=== PATIENT | female | born 1945 | race Caucasian/White ===

== ENCOUNTER 2021-04-17 04:58 | Inpatient (IN) ==
[2021-04-13 19:08] LABS: Blood Urea Nitrogen 11 mg/dL (8-23); Calcium 9.8 mg/dL (8.6-10.4); Carbon Dioxide 27 mmol/L (22-30); Chloride 100 mmol/L (96-108); Glomerular Filtration Rate 87; Glucose 113 mg/dL (70-105)
[2021-04-13 19:34] LABS: Basophils # (Auto) 0.01 K/mcL (0.00-0.20); Basophils % (Auto) 0.2 % (0.0-2.0); Eosinophils # (Auto) 0.17 K/mcL (0.00-0.70); Hematocrit 27.4 % (36.0-48.0); Hemoglobin 7.4 g/dL (12.0-15.0); Lymphocytes # (Auto) 1.23 K/mcL (1.50-4.80); Lymphocytes % (Auto) 21.7 % (15.0-49.0); Mean Cell Volume 64.2 fL (80.0-100.0); Mean Platelet Volume 9.8 fL (7.4-10.4); Monocytes # (Auto) 0.76 K/mcL (0.10-0.90); Monocytes % (Auto) 13.4 % (1.0-12.0); Neutrophils % (Auto) 61.7 % (38.0-78.0); Platelet Count 394 K/mcL (140-440); RBC 4.27 M/mcL (4.00-5.20); Red Cell Distribution Width 19.5 % (11.5-14.5); WBC 5.7 K/mcL (4.5-11.0)
[2021-04-17] MEDS ORDERED: SCOPOLAMINE 1 PATCH PATCH TOPICAL PRN (05:00)
[2021-04-17] MEDS ORDERED: IPRATROPIUM/ALBUTEROL 3 ML AMPUL.NEB NEB PRN ×2 (05:00→09:05)
[2021-04-17] MEDS ORDERED: ceFAZolin 2 GM in DEXTROSE 5% IN WATER 50 ML IV SCH (07:00)
[2021-04-17] MEDS ORDERED: 0.9 % SODIUM CHLORIDE 250 ML IV SCH (07:45)
[2021-04-17] MEDS ORDERED: ROCURONIUM 10 MG/ML ML IV ONE (07:55)
[2021-04-17] MEDS ORDERED: LIDOCAINE HCL/PF 100 MG/5 ML SYRINGE IV ONE (07:55)
[2021-04-17] MEDS ORDERED: DEXAMETHASONE 10 MG/ML VIAL ONE (07:55)
[2021-04-17] MEDS ORDERED: HYDROmorphone 1 MG/ML SYRINGE ONE (07:55)
[2021-04-17] MEDS ORDERED: MAGNESIUM SULFATE 2 GM/50 ML BAG IV ONE (07:55)
[2021-04-17] MEDS ORDERED: fentaNYL 100 MCG/2 ML VIAL IV ONE (07:55)
[2021-04-17] MEDS ORDERED: ONDANSETRON 4 MG/2 ML VIAL ONE (07:55)
[2021-04-17] MEDS ORDERED: PROPOFOL 200 MG/20 ML VIAL IV ONE (07:55)
[2021-04-17] MEDS ORDERED: KETAMINE 50 MG/ML ML ONE (07:55)
[2021-04-17] MEDS ORDERED: SUGAMMADEX SODIUM 200 MG/2 ML VIAL IV ONE (07:55)
[2021-04-17] MEDS ORDERED: diphenhydrAMINE 50 MG/ML VIAL IV PRN (09:05)
[2021-04-17] MEDS ORDERED: NALOXONE HCL 0.4 MG/ML VIAL IV PRN (09:05)
[2021-04-17] MEDS ORDERED: BENZOCAINE/MENTHOL 1 LOZENGE PO PRN (09:05)
[2021-04-17] MEDS ORDERED: LACTATED RINGERS 250 ML IV PRN (09:05)
[2021-04-17] MEDS ORDERED: ONDANSETRON 4 MG/2 ML VIAL IV PRN (09:05)
[2021-04-17] MEDS ORDERED: ACETAMINOPHEN 1,000 MG/100 ML BAG IV ONE (09:05)
[2021-04-17] MEDS ORDERED: MEPERIDINE 25 MG/ML VIAL IV PRN (09:05)
[2021-04-17] MEDS ORDERED: PROMETHAZINE 25 MG/ML VIAL IV PRN (09:05)
[2021-04-17] MEDS ORDERED: LACTATED RINGERS 1,000 ML IV SCH (09:15)
[2021-04-17] MEDS ORDERED: morphine 4 MG/ML VIAL IV PRN (09:33)
--- NOTE | 2021-04-17 09:33 | Operative Note ---
Brief Operative Note Date of procedure: 04/17/21 Pre-op diagnosis: Cecal adenocarcinoma Post-op diagnosis: same Procedure: Exploratory laparotomy, right hemicolectomy, explantation of ventral abdominal wall mesh, extensive lysis of adhesions Grafts/Implants: No Anesthesia: GETA Complications: none Surgeon: Alexander Melendrez Estimated blood loss (cc): 50 Specimens Removed/Pathology: other (Portion of terminal ileum and cecum, right colon.Dated mesh) Condition: stable Disposition: PACU Operative Note Operative Note: After risk benefits and alternatives to the procedure were discussed with the patient at length she verbalized understanding and desire to continue with the procedure. Patient was taken main operating room placed upon the operative table. General anesthesia was induced over endotracheal tube. Patient's prepped and draped in the standard sterile surgical fashion. Surgical timeout was taken to verify patient and procedure being performed. Prior midline incision was made carried down through skin and subtenons tissue. Mesh was encountered this was transected and the abdominal cavity was entered. Extensive lysis of adhesions was necessary secondary to dense adhesions to the m esh. Once full lysis of adhesions was carried out attention was turned to the right colon where the colonic mass was identified. The white line of Toldt was taken down to medialize the colon the hepatic flexure was also taken down, there was a large amount of omental adhesions to the hepatic flexure these were taken down to fully mobilize the right side of the colon. Once this was done the colo n was transected approximately 10 cm proximal to the mass and the small bowel was transected 10 cm distal to the terminal ileum. The mesentery was taken down with the LigaSure device and the specimen was passed off the field for surgical pathology. A end-to-end functional [id number] stapled anastomosis was then performed in between the small bowel and the transverse colon. The enterotomy was closed with a running 3-0 PDS suture in a standard canal fashion. The mesentery defect was closed with interrupted 3-0 Vicryl sutures. Once this was done the anastomosis was widely patent and was returned to its anatomical position. At this time gloves and instruments were changed to a closing tray. Full abdominal expiration was once again carried out, there was no obvious liver metastasis or other pathology in the abdomen. Secondary to the bowel anastomosis decision was made to remove the previously placed mesh, it was carefully dissected free from the posterior fascia using sharp, electrocautery and a blunt dissection. Once it was fully removed is passed off field for surgical pathology. Attention was turned back to the abdomen abdominal cavity which was copiously irrigated and all irrigant was suctioned free from the abdominal cavity. Midline fascial defect was then closed using running 0 PDS suture. Subcutaneous tissues were closed with a running 4 Monocryl suture skin glue dressings were applied. Patient was then awakened from general anesthesia transported postanesthesia care unit awake alert in good condition.
[2021-04-17] MEDS: fentaNYL 100 MCG/2 ML VIAL IV PRN ×2 (10:16→10:28)
[2021-04-17] MEDS: LACTATED RINGERS 1,000 ML IV SCH ×2 (10:53→21:35)
[2021-04-17] MEDS: oxyCODONE HCL 5 MG TABLET PO PRN (19:06)
[2021-04-17] MEDS ORDERED: SENNOSIDES 1 TABLET PO SCH (21:00)
[2021-04-17] MEDS: DOCUSATE SODIUM 100 MG CAPSULE PO SCH (21:33)
[2021-04-18] MEDS: oxyCODONE HCL 5 MG TABLET PO PRN ×3 (04:32→16:19)
[2021-04-18 07:55] LABS: Basophils # (Auto) 0.01 K/mcL (0.00-0.20); Basophils % (Auto) 0.1 % (0.0-2.0); Eosinophils # (Auto) 0 K/mcL (0.00-0.70); Eosinophils % (Auto) 0 % (0.0-7.0); Hematocrit 22.8 % (36.0-48.0); Hemoglobin 6.2 g/dL (12.0-15.0); Lymphocytes # (Auto) 0.71 K/mcL (1.50-4.80); Lymphocytes % (Auto) 6.5 % (15.0-49.0); Mean Cell Volume 63.5 fL (80.0-100.0); Mean Corpuscular HGB Conc 27.2 g/dL (31.0-36.0); Mean Platelet Volume 10.2 fL (7.4-10.4); Monocytes # (Auto) 0.93 K/mcL (0.10-0.90); Monocytes % (Auto) 8.5 % (1.0-12.0); Neutrophils % (Auto) 84.9 % (38.0-78.0); Platelet Count 363 K/mcL (140-440); RBC 3.59 M/mcL (4.00-5.20); Red Cell Distribution Width 19.3 % (11.5-14.5)
[2021-04-18] MEDS: LACTATED RINGERS 1,000 ML IV SCH ×2 (08:01→22:27)
[2021-04-18 08:17] LABS: Blood Urea Nitrogen 8 mg/dL (8-23); Calcium 9.2 mg/dL (8.6-10.4); Carbon Dioxide 27 mmol/L (22-30); Chloride 100 mmol/L (96-108); Glomerular Filtration Rate 93; Glucose 135 mg/dL (70-105)
[2021-04-18] MEDS: ENOXAPARIN 30 MG/0.3 ML SYRINGE SQ SCH (08:25)
[2021-04-18] MEDS: DOCUSATE SODIUM 100 MG CAPSULE PO SCH ×2 (08:25→20:51)
--- NOTE | 2021-04-18 08:49 | General Surgery Progress Note ---
SUBJECTIVE Subjective Patient information: Note initiated : 04/18/21 at 8:47 am Service Date, if different from initiated Date: [] Patient: Annie Gomez 75 y/o F admitted on 04/17/21 for Right Hemicolectomy. Chief Complaint: [] Interval history: Postop day #1 status post open right hemicolectomy with extensive lysis of adhesions. Patient reports she feels well today, is tolerating clear liquid diet without difficulty, has had multiple episodes of flatus without nausea or emesis. Constitutional Vitals: Vital Signs Temp Pulse Resp BP Pulse Ox 97.3 F 84 20 142/74 96 04/18/21 07:21 04/18/21 07:21 04/18/21 07:21 04/18/21 07:21 04/18/21 07:21 Period Temp Pulse Resp BP Sys/Cuveas Pulse Ox Last 24 Hr 97.1 F-98.6 F 69-91 12-24 114-154/53-84 90-99 Intake and Output 04/17/21 04/18/21 04/18/21 21:59 05:59 13:59 Intake Total 1360 0 1000 Output Total 450 1700 Balance 910 -1700 1000 Weight 204 lb 14.4 oz Intake & Output: Intake & Output 04/17/21 04/18/21 04/18/21 21:59 05:59 13:59 Intake Total 1360 0 1000 Output Total 450 1700 Balance 910 -1700 1000 Weight 204 lb 14.4 oz Intake: IV 1000 1000 Lactated Ringers 1,000 ml @ 100 1000 1000 mls/hr IV .Q10H [facility] Rx#: [id number] Oral 360 0 Output: Urine Catheter Amount 450 1700 Other: Meal Lunch Percent of Meal Consumed 50% Feeding Ability Assist with Tray Set Up Urine Appearance Clear Uretheral (Blandon) Clear Urine Color Straw Bright Yellow Uretheral (Blandon) Bright Yellow Urine Odor Normal General appearance: cooperative and no acute distress GI/Abdominal GI/Abdominal exam: Present normal bowel sounds and soft; Absent distended Additional comments: Appropriately tender to palpation. Incision is clean dry and intact A/P Narrative A/P Narrative: Postop day #1 status post right hemicolectomy. Patient is doing as expected, she is ambulatory and tolerating clear diet. Plan: 1 unit of blood, recheck H&H tomorrow. Continue ambulation as tolerated, will advance diet as tolerated. Time Spent With Patient Time: Total time spent is greater than 50% in coordination of care (as documented) at patient's floor/unit and/or counseling patient:
[2021-04-18] MEDS ORDERED: ALBUTEROL SULFATE 200 PUFF INHALER INH PRN (08:51)
[2021-04-18] MEDS ORDERED: ACETAMINOPHEN 325 MG TABLET PO PRN (08:52)
[2021-04-18] MEDS ORDERED: oxyCODONE HCL 5 MG TABLET PO PRN (08:52)
[2021-04-18] MEDS ORDERED: LOSARTAN/HCTZ 100/25 TABLET PO SCH (09:00)
[2021-04-18] MEDS ORDERED: 0.9 % SODIUM CHLORIDE 250 ML IV SCH (09:00)
[2021-04-18] MEDS: HYDROCHLOROTHIAZIDE 25 MG TABLET PO SCH (09:49)
[2021-04-18] MEDS: busPIRone 5 MG TABLET PO SCH ×2 (09:49→20:51)
[2021-04-18] MEDS: LOSARTAN 50 MG TABLET PO SCH (09:49)
[2021-04-18] MEDS: SERTRALINE 50 MG TABLET PO SCH ×2 (09:49→20:50)
[2021-04-18] MEDS: ONDANSETRON 4 MG/2 ML VIAL IV PRN ×2 (17:16→23:24)
--- NOTE | 2021-04-18 18:26 | EKG ---
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 Measurements Intervals [place] Rate: 104 P: 45 MS: 168 QRS: 12 QRSD: 80 T: 16 QT: 352 QTc: 463 Interpretive Statements I reviewed and agree with the above findings. SINUS TACHYCARDIA ATRIAL PREMATURE COMPLEX no prior tracing for comparison Electronically Signed On 04-19-2021 19:02:48 PDT by Meet Barnes M.D. /[id number]
[2021-04-18] MEDS: SOTALOL 80 MG TABLET PO SCH (20:47)
[2021-04-19] MEDS: LACTATED RINGERS 1,000 ML IV SCH ×3 (01:48→12:13)
[2021-04-19] MEDS: 0.9 % SODIUM CHLORIDE 10 ML SYRINGE IV SCH ×3 (05:21→22:46)
[2021-04-19 07:48] LABS: Basophils # (Auto) 0.01 K/mcL (0.00-0.20); Basophils % (Auto) 0.1 % (0.0-2.0); Eosinophils # (Auto) 0.02 K/mcL (0.00-0.70); Eosinophils % (Auto) 0.2 % (0.0-7.0); Hemoglobin 7.7 g/dL (12.0-15.0); Lymphocytes # (Auto) 0.81 K/mcL (1.50-4.80); Lymphocytes % (Auto) 7.5 % (15.0-49.0); Mean Corpuscular HGB Conc 28.5 g/dL (31.0-36.0); Mean Platelet Volume 10.1 fL (7.4-10.4); Monocytes # (Auto) 0.99 K/mcL (0.10-0.90); Monocytes % (Auto) 9.1 % (1.0-12.0); Neutrophils % (Auto) 83.1 % (38.0-78.0); Platelet Count 337 K/mcL (140-440); RBC 4.03 M/mcL (4.00-5.20); Red Cell Distribution Width 21.8 % (11.5-14.5); WBC 10.8 K/mcL (4.5-11.0)
--- NOTE | 2021-04-19 08:29 | General Surgery Progress Note ---
SUBJECTIVE Subjective Patient information: Note initiated : 04/19/21 at 8:27 am Service Date, if different from initiated Date: [] Patient: Annie Gomez 75 y/o F admitted on 04/17/21 for Right Hemicolectomy. Chief Complaint: [] Interval history: Postop day #2 status post exploratory laparotomy, extensive lysis of adhesions, right hemicolectomy for cecal cancer. Patient is feeling more tired today than what she did yesterday morning, has some nausea and emesis overnight however feels better this morning. She continues to pass flatus, she has not had a bowel movement at this time. Constitutional Vitals: Vital Signs Temp Pulse Resp BP Pulse Ox 98.2 F 68 20 153/82 98 04/19/21 07:29 04/19/21 07:29 04/19/21 07:29 04/19/21 07:29 04/19/21 07:29 Period Temp Pulse Resp BP Sys/Cuevas Pulse Ox Last 24 Hr 97.9 F-98.7 F 68-104 20-24 144-187/66-86 90-98 Intake and Output 04/18/21 04/19/21 04/19/21 21:59 05:59 13:59 Intake Total 650 727 Output Total 1775 1425 Balance -1125 -698 Weight 206 lb 1.6 oz Intake & Output: Intake & Output 04/18/21 04/19/21 04/19/21 21:59 05:59 13:59 Intake Total 650 727 Output Total 1775 1425 Balance -1125 -698 Weight 206 lb 1.6 oz Intake: IV 0 477 Sodium Chloride 0.9% 250 ml @ 0 20 mls/hr IV .[id number] [facility] Rx#: [id number] Lactated Ringers 1,000 ml @ 100 477 mls/hr IV .Q10H [facility] Rx#: [id number] Oral 650 250 Output: Urine Catheter Amount 1575 1350 Emesis 200 75 Other: Urine Appearance Clear Cloudy Urine Color Bright Yellow Bright Yellow Uretheral (Blandon) Bright Yellow Urine Odor Normal General appearance: cooperative and no acute distress GI/Abdominal GI/Abdominal exam: Present soft and tenderness (Appropriately tender to palpation); Absent distended Additional comments: Incision is clean dry and intact A/P Narrative A/P Narrative: Postop day #2 status post right hemicolectomy. Patient is progressing as expected, status post 1 unit of blood yesterday with appropriate increase in H&H today. Slightly hypertensive last night, however after appropriate resuscitation blood pressure and pulse have returned towards normal. Plan: Restart all outpatient medications other than supplements. Continue to encourage ambulation, awaiting full return of bowel function. DC Jamia. Time Spent With Patient Time: Total time spent is greater than 50% in coordination of care (as docu mented) at patient's floor/unit and/or counseling patient:
[2021-04-19] MEDS ORDERED: WARFARIN 5 MG TABLET PO SCH (09:00)
[2021-04-19] MEDS: HYDROCHLOROTHIAZIDE 25 MG TABLET PO SCH (09:22)
[2021-04-19] MEDS: busPIRone 5 MG TABLET PO SCH ×2 (09:23→21:31)
[2021-04-19] MEDS: SOTALOL 80 MG TABLET PO SCH ×2 (09:23→21:31)
[2021-04-19] MEDS: SERTRALINE 50 MG TABLET PO SCH ×2 (09:26→21:31)
[2021-04-19] MEDS: LOSARTAN 50 MG TABLET PO SCH (09:26)
[2021-04-19] MEDS: HYDROmorphone 0.5 MG/0.5 ML SYRINGE IV PRN ×3 (09:48→21:36)
[2021-04-19 10:24] LABS: INR 1.3 (0.9-1.1)
[2021-04-19] MEDS: ENOXAPARIN 30 MG/0.3 ML SYRINGE SQ SCH (12:09)
[2021-04-19] MEDS: DEXTROSE 5%-1/2NS 1,000 ML IV SCH ×2 (12:28→21:39)
[2021-04-19] MEDS: WARFARIN 5 MG TABLET PO SCH (14:29)
[2021-04-19] MEDS: CALCIUM CARBONATE 500 MG TAB.CHEW CHEWED PRN (17:38)
[2021-04-20] MEDS: DEXTROSE 5%-1/2NS 1,000 ML IV SCH (01:04)
[2021-04-20] MEDS: HYDROmorphone 0.5 MG/0.5 ML SYRINGE IV PRN ×4 (04:22→21:32)
[2021-04-20] MEDS: 0.9 % SODIUM CHLORIDE 10 ML SYRINGE IV SCH ×3 (04:50→21:34)
[2021-04-20 07:49] LABS: Basophils # (Auto) 0.01 K/mcL (0.00-0.20); Basophils % (Auto) 0.1 % (0.0-2.0); Eosinophils # (Auto) 0.23 K/mcL (0.00-0.70); Hematocrit 27.1 % (36.0-48.0); Hemoglobin 7.7 g/dL (12.0-15.0); Lymphocytes # (Auto) 0.94 K/mcL (1.50-4.80); Lymphocytes % (Auto) 12.5 % (15.0-49.0); Mean Cell Volume 67.9 fL (80.0-100.0); Mean Corpuscular HGB Conc 28.4 g/dL (31.0-36.0); Mean Platelet Volume 10.1 fL (7.4-10.4); Monocytes # (Auto) 0.72 K/mcL (0.10-0.90); Monocytes % (Auto) 9.5 % (1.0-12.0); Neutrophils % (Auto) 74.9 % (38.0-78.0); Platelet Count 322 K/mcL (140-440); RBC 3.99 M/mcL (4.00-5.20); Red Cell Distribution Width 21.9 % (11.5-14.5); WBC 7.6 K/mcL (4.5-11.0)
[2021-04-20 08:03] LABS: INR 1.3 (0.9-1.1); Prothrombin Time 16.3 sec (11.9-14.5)
[2021-04-20 08:05] LABS: Blood Urea Nitrogen 7 mg/dL (8-23); Calcium 9.3 mg/dL (8.6-10.4); Carbon Dioxide 33 mmol/L (22-30); Chloride 96 mmol/L (96-108); Glomerular Filtration Rate 93; Glucose 107 mg/dL (70-105)
--- NOTE | 2021-04-20 08:52 | General Surgery Progress Note ---
SUBJECTIVE Subjective Patient information: Note initiated : 04/20/21 at 8:50 am Service Date, if different from initiated Date: [] Patient: Annie Gomez 75 y/o F admitted on 04/17/21 for Right Hemicolectomy. Chief Complaint: [] Interval history: Postop day #2 status post right hemicolectomy. Patient is doing well, continues to pass flatus, however no bowel movement as of yet. She reports her cramping pain is much better. Constitutional Vitals: Vital Signs Temp Pulse Resp BP Pulse Ox 97.6 F 55 L 18 160/75 98 04/20/21 07:53 04/20/21 07:53 04/20/21 07:53 04/20/21 07:53 04/20/21 07:53 Period Temp Pulse Resp BP Sys/Cuevas Pulse Ox Last 24 Hr 97.6 F-98.7 F 55-73 16-20 125-160/59-83 90-99 Intake and Output 04/19/21 04/20/21 04/20/21 21:59 05:59 13:59 Intake Total 2080 945 Output Total 1800 500 Balance 280 445 Weight 206 lb 9 oz Intake & Output: Intake & Output 04/19/21 04/20/21 04/20/21 21:59 05:59 13:59 Intake Total 2080 945 Output Total 1800 500 Balance 280 445 Weight 206 lb 9 oz Intake: IV 1000 945 Dextrose 5%-1/2Ns IV Solution 1 945 ,000 ml @ 75 mls/hr IV .[id number] [facility] Rx#:[id number] Lactated Ringers 1,000 ml @ 100 1000 mls/hr IV .Q10H [facility] Rx#: [id number] Oral 1080 Output: Void Amount 1800 500 Other: Meal Lunch Percent of Meal Consumed 25% Feeding Ability Independent Urine Appearance Clear Urine Color Bright Yellow Bright Yellow Urine Odor Normal General appearance: cooperative and no acute distress GI/Abdominal GI/Abdominal exam: Present soft; Absent distended, rebound and tenderness Additional comments: Incision is clean dry and intact A/P Narrative A/P Narrative: Postoperative day #3 status post hemicolectomy, doing very well. Awaiting full return of bowel movements. We will Hep-Lock IV fluids, have restarted outpatient medications. Anticipate discharge in the next 1 to 2 days. Time Spent With Patient Time: Total time spent is greater than 50% in coordination of care (as documented) at patient's floor/unit and/or counseling patient:
[2021-04-20] MEDS: SERTRALINE 50 MG TABLET PO SCH ×2 (09:15→21:32)
[2021-04-20] MEDS: busPIRone 5 MG TABLET PO SCH ×2 (09:17→21:32)
[2021-04-20] MEDS: LOSARTAN 50 MG TABLET PO SCH (09:18)
[2021-04-20] MEDS: SOTALOL 80 MG TABLET PO SCH ×2 (09:18→21:32)
[2021-04-20] MEDS: HYDROCHLOROTHIAZIDE 25 MG TABLET PO SCH (09:19)
[2021-04-20] MEDS: ENOXAPARIN 30 MG/0.3 ML SYRINGE SQ SCH (09:20)
[2021-04-20] MEDS: ONDANSETRON 4 MG/2 ML VIAL IV PRN ×2 (12:09→21:31)
[2021-04-20] MEDS: WARFARIN 5 MG TABLET PO SCH (16:12)
[2021-04-21] MEDS: oxyCODONE HCL 5 MG TABLET PO PRN (03:06)
[2021-04-21] MEDS: 0.9 % SODIUM CHLORIDE 10 ML SYRINGE IV SCH ×3 (04:54→21:49)
[2021-04-21 08:02] LABS: INR 1.3 (0.9-1.1); Prothrombin Time 16.7 sec (11.9-14.5)
[2021-04-21 08:22] LABS: Blood Urea Nitrogen 7 mg/dL (8-23); Calcium 9.5 mg/dL (8.6-10.4); Carbon Dioxide 29 mmol/L (22-30); Chloride 94 mmol/L (96-108); Glomerular Filtration Rate 93; Glucose 102 mg/dL (70-105)
[2021-04-21] MEDS: ONDANSETRON 4 MG/2 ML VIAL IV PRN ×2 (08:43→15:30)
[2021-04-21 08:52] LABS: Basophils # (Auto) 0.01 K/mcL (0.00-0.20); Basophils % (Auto) 0.1 % (0.0-2.0); Eosinophils # (Auto) 0.06 K/mcL (0.00-0.70); Eosinophils % (Auto) 0.8 % (0.0-7.0); Hematocrit 28.2 % (36.0-48.0); Hemoglobin 8.1 g/dL (12.0-15.0); Lymphocytes % (Auto) 9.9 % (15.0-49.0); Mean Cell Volume 67.3 fL (80.0-100.0); Mean Corpuscular HGB Conc 28.7 g/dL (31.0-36.0); Mean Platelet Volume 10.5 fL (7.4-10.4); Monocytes # (Auto) 0.73 K/mcL (0.10-0.90); Monocytes % (Auto) 10.3 % (1.0-12.0); Neutrophils % (Auto) 78.9 % (38.0-78.0); Platelet Count 289 K/mcL (140-440); RBC 4.19 M/mcL (4.00-5.20); Red Cell Distribution Width 22.5 % (11.5-14.5); WBC 7.1 K/mcL (4.5-11.0)
--- NOTE | 2021-04-21 09:38 | General Surgery Progress Note ---
SUBJECTIVE Subjective Patient information: Note initiated : 04/21/21 at 9:36 am Service Date, if different from initiated Date: [] Patient: Annie Gomez 75 y/o F admitted on 04/17/21 for Right Hemicolectomy. Chief Complaint: [] Interval history: Postop day #4 status post open right hemicolectomy for cecal adenocarcinoma. Patient continues to have abdominal cramping, feels like she is about ready to have a bowel movement, also experienced mild nausea with several small bouts of emesis overnight. Patient has been ambulatory. Constitutional Vitals: Vital Signs Temp Pulse Resp BP Pulse Ox 97.6 F 58 L 20 156/65 92 04/21/21 08:00 04/21/21 08:00 04/21/21 08:00 04/21/21 08:00 04/21/21 08:00 Period Temp Pulse Resp BP Sys/Cuevas Pulse Ox Last 24 Hr 97.3 F-98.9 F 58-96 16-20 145-186/62-94 84-96 Intake and Output 04/20/21 04/21/21 04/21/21 21:59 05:59 13:59 Intake Total 300 Output Total 1000 700 Balance -1000 -400 Weight 208 lb Intake & Output: Intake & Output 04/20/21 04/21/21 04/21/21 21:59 05:59 13:59 Intake Total 300 Output Total 1000 700 Balance -1000 -400 Weight 208 lb Intake: Oral 300 Output: Void Amount 1000 700 Other: Urine Appearance Clear Clear Urine Color Dark Yellow Dark Yellow Urine Odor Normal Normal # Voids 1 General appearance: cooperative and no acute distress GI/Abdominal GI/Abdominal exam: Present normal bowel sounds and soft; Absent distended and tenderness Additional comments: Incision is clean dry and intact A/P Narrative A/P Narrative: Postop day #4 status post right hemicolectomy. Awaiting return of bowel function, encourage ambulation. Patient can also chew gum to stimulate return of bowel function. We will continue to follow H&H and INR. Time Spent With Patient Time: Total time spent is greater than 50% in coordination of care (as documented) at patient's floor/unit and/or counseling patient:
[2021-04-21] MEDS: SOTALOL 80 MG TABLET PO SCH ×3 (11:31→20:24)
[2021-04-21] MEDS: busPIRone 5 MG TABLET PO SCH ×2 (11:31→20:24)
[2021-04-21] MEDS: HYDROCHLOROTHIAZIDE 25 MG TABLET PO SCH ×2 (11:32→13:10)
[2021-04-21] MEDS: SERTRALINE 50 MG TABLET PO SCH ×2 (11:32→20:24)
[2021-04-21] MEDS: LOSARTAN 50 MG TABLET PO SCH ×2 (11:32→13:11)
[2021-04-21] MEDS: ENOXAPARIN 30 MG/0.3 ML SYRINGE SQ SCH (11:32)
[2021-04-21] MEDS: HYDROmorphone 0.5 MG/0.5 ML SYRINGE IV PRN (15:59)
[2021-04-21] MEDS: WARFARIN 5 MG TABLET PO SCH (15:59)
[2021-04-22] MEDS: ONDANSETRON 4 MG/2 ML VIAL IV PRN ×2 (00:31→23:00)
[2021-04-22] MEDS: HYDROmorphone 0.5 MG/0.5 ML SYRINGE IV PRN ×2 (00:32→15:23)
[2021-04-22] MEDS: 0.9 % SODIUM CHLORIDE 10 ML SYRINGE IV SCH ×3 (04:28→21:13)
[2021-04-22 07:50] LABS: INR 1.4 (0.9-1.1); Prothrombin Time 18.2 sec (11.9-14.5)
[2021-04-22] MEDS: SOTALOL 80 MG TABLET PO SCH ×2 (08:06→21:11)
[2021-04-22] MEDS: LOSARTAN 50 MG TABLET PO SCH (08:07)
[2021-04-22] MEDS: HYDROCHLOROTHIAZIDE 25 MG TABLET PO SCH (08:08)
[2021-04-22] MEDS: MAGNESIUM OXIDE 400 MG TABLET PO SCH (08:08)
[2021-04-22] MEDS: SERTRALINE 50 MG TABLET PO SCH ×2 (08:08→21:10)
[2021-04-22] MEDS: POTASSIUM CHLORIDE 10 MEQ TABLET PO SCH (08:08)
[2021-04-22] MEDS: busPIRone 5 MG TABLET PO SCH ×2 (08:08→21:11)
[2021-04-22] MEDS: oxyCODONE HCL 5 MG TABLET PO PRN (08:08)
[2021-04-22] MEDS: ENOXAPARIN 30 MG/0.3 ML SYRINGE SQ SCH (08:54)
--- NOTE | 2021-04-22 09:21 | General Surgery Progress Note ---
SUBJECTIVE Subjective Patient information: Note initiated : 04/22/21 at 9:20 am Service Date, if different from initiated Date: [] Patient: Annie Gomez 75 y/o F admitted on 04/17/21 for Right Hemicolectomy. Chief Complaint: [] Interval history: Postop day #5 status post right hemicolectomy for cecal adenocarcinoma. Patient had some nausea last night, however this morning she is passing more flatus, feels less distended, nausea and emesis has resolved, she is tolerating small amount of p.o. intake. Constitutional Vitals: Vital Signs Temp Pulse Resp BP Pulse Ox 98.4 F 71 16 147/65 93 04/22/21 07:35 04/22/21 07:35 04/22/21 07:35 04/22/21 07:35 04/22/21 07:35 Period Temp Pulse Resp BP Sys/Cuevas Pulse Ox Last 24 Hr 98.4 F-99.3 F 67-80 16-18 147-187/65-86 90-97 Intake and Output 04/21/21 04/22/21 04/22/21 21:59 05:59 13:59 Intake Total 220 Output Total 650 700 300 Balance -650 -480 -300 Weight 194 lb Intake & Output: Intake & Output 04/21/21 04/22/21 04/22/21 21:59 05:59 13:59 Intake Total 220 Output Total 650 700 300 Balance -650 -480 -300 Weight 194 lb Intake: Oral 220 Output: Void Amount 650 700 300 Other: Urine Appearance Clear Clear Cloudy Urine Color Dark Yellow Bright Yellow Bright Yellow Urine Odor Normal General appearance: cooperative and no acute distress GI/Abdominal GI/Abdominal exam: Present soft; Absent distended, guarding and tenderness Additional comments: Incision is clean dry and intact A/P Narrative A/P Narrative: Postop day #5 doing as expected. Awaiting full return of bowel function, has been restarted on all outpatient medications, her pain is minimal at this time. She is tolerating a regular diet. Encourage ambulation. Time Spent With Patient Time: Total time spent is greater than 50% in coordination of care (as documented) at patient's floor/unit and/or counseling patient:
[2021-04-22] MEDS: WARFARIN 5 MG TABLET PO SCH (13:47)
[2021-04-23] MEDS: 0.9 % SODIUM CHLORIDE 10 ML SYRINGE IV SCH ×3 (05:09→21:21)
[2021-04-23] MEDS: oxyCODONE HCL 5 MG TABLET PO PRN ×3 (07:49→19:14)
[2021-04-23] MEDS: busPIRone 5 MG TABLET PO SCH ×2 (08:14→21:20)
[2021-04-23] MEDS: SERTRALINE 50 MG TABLET PO SCH ×2 (08:15→21:20)
[2021-04-23] MEDS: MAGNESIUM OXIDE 400 MG TABLET PO SCH (08:15)
[2021-04-23] MEDS: LOSARTAN 50 MG TABLET PO SCH (08:16)
[2021-04-23] MEDS: POTASSIUM CHLORIDE 10 MEQ TABLET PO SCH (08:16)
[2021-04-23] MEDS: HYDROCHLOROTHIAZIDE 25 MG TABLET PO SCH (08:16)
[2021-04-23] MEDS: SOTALOL 80 MG TABLET PO SCH ×2 (08:16→21:20)
[2021-04-23] MEDS: ENOXAPARIN 30 MG/0.3 ML SYRINGE SQ SCH (08:16)
[2021-04-23 08:18] LABS: INR 1.7 (0.9-1.1); Prothrombin Time 20.7 sec (11.9-14.5)
--- NOTE | 2021-04-23 09:31 | General Surgery Progress Note ---
SUBJECTIVE Subjective Patient information: Note initiated : 04/23/21 at 9:29 am Service Date, if different from initiated Date: [] Patient: Annie Gomez 75 y/o F admitted on 04/17/21 for Right Hemicolectomy. Chief Complaint: [] Interval history: Postop day #6 status post extended right hemicolectomy for cecal mass. Patient continues to pass flatus, has not had a bowel movement. She continues to ambulate without difficulty. She has no further nausea or emesis. Constitutional Vitals: Vital Signs Temp Pulse Resp BP Pulse Ox 98.3 F 69 18 156/76 95 04/23/21 07:41 04/23/21 07:41 04/23/21 07:41 04/23/21 07:41 04/23/21 07:41 Period Temp Pulse Resp BP Sys/Cuevas Pulse Ox Last 24 Hr 97.8 F-98.9 F 56-75 16-18 147-162/64-76 91-98 Intake and Output 04/22/21 04/23/21 04/23/21 21:59 05:59 13:59 Intake Total 100 Output Total 500 700 Balance -500 -600 Weight 196 lb Intake & Output: Intake & Output 04/22/21 04/23/21 04/23/21 21:59 05:59 13:59 Intake Total 100 Output Total 500 700 Balance -500 -600 Weight 196 lb Intake: Oral 100 Output: Void Amount 500 700 Other: Urine Appearance Clear Clear Urine Color Bright Yellow Bright Yellow Urine Odor Normal Normal General appearance: cooperative and no acute distress GI/Abdominal GI/Abdominal exam: Present normal bowel sounds and soft; Absent distended and tenderness A/P Narrative A/P Narrative: Postop day #6 status post right hemicolectomy. Patient is progressing as expected, awaiting return of bowel function. Continue with Coumadin on home dose, continue with ambulation. Time Spent With Patient Time: Total time spent is greater than 50% in coordination of care (as do cumented) at patient's floor/unit and/or counseling patient:
[2021-04-23] MEDS: WARFARIN 5 MG TABLET PO SCH (13:02)
[2021-04-23] MEDS: ONDANSETRON 4 MG/2 ML VIAL IV PRN (13:03)
[2021-04-23] MEDS: CALCIUM CARBONATE 500 MG TAB.CHEW CHEWED PRN (16:32)
--- NOTE | 2021-04-23 17:28 | Surgical Pathology Report ---
Histology AP Reopened Reason Specimen A- Reason for amended report: Correct typographical error: Diagnosis unchanged. Microscopic Diagnosis COLON, RIGHT MONROE COLECTOMY: --- MODERATELY DIFFERENTIATED ADENOCARCINOMA, WITH MUCINOUS FEATURES, INVASIVE THROUGH MUSCULARIS PROPRIA TO SUBSEROSAL FAT: -- SIZE: 9.9 CM IN GREATEST DIMENSION. -- MARGINS: MARGINS FREE OF CARCINOMA - CARCINOMA IS 7 CM TO PROXIMAL, 10 CM TO DISTAL AND 8 CM TO MESENTERIC MARGINS. -- LYMPH-VASCULAR INVASION: PRESENT. -- PERINEURAL INVASION: NOT IDENTIFIED. -- TUMOR DEPOSITS: INDETERMINATE, SEE COMMENT. -- LYMPH NODES: METASTATIC CARCINOMA IDENTIFIED IN TWENTY-ONE OF TWENTY-THREE LYMPH NODES (21/23) WITH EXTRANODAL EXTENSION. -- PATHOLOGIC STAGE: pT3 N2b. --- TWO TUBULAR ADENOMAS. --- DIVERTICULOSIS. Comments The prior biopsy ([id number], 04/06/2021) is reviewed. Sections of the cecal mass show an adenocarcinoma with mucinous features. Numerous foci of tumor without lymphoid tissue are identified adjacent to lymph nodes within the pericolic fat. These may represent tumor deposits or completely replaced lymph nodes. Please see summary cancer data below. SUMMARY CANCER DATA Procedure: Right hemicolectomy. Tumor Site: Cecum. Tumor Size: 9.9 x 5.5 x 4 cm. Macroscopic Tumor Perforation: Not identified. Histologic Type: Adenocarcinoma. Histologic Grade: Moderate. Microscopic Tumor Extension: Invasive through muscularis propria to subserosal tissue. Lymph-Vascular Invasion: Present. Perineural Invasion: Not identified. Tumor Deposits (discontinuous extramural extension): Indeterminate. Treatment Effect: Not applicable. Margins: Free of tumor. Proximal Margin: Carcinoma is 7 cm to proximal margin. Distal Margin: Carcinoma is 10 cm to distal margin. Circumferential (Radial) or Mesenteric Margin: Carcinoma is 8 cm to mesenteric margin. Distance of invasive carcinoma from closest margin: 7 cm. Lymph nodes: Number of Lymph Nodes examined: 23. Number of Lymph Nodes involved: 21. Pathologic Stage: pT3 N2b. Procedural Impression Right cecal mass. Gross Description Received in formalin labeled colon resection right hemicolectomy cecal mass, is a segment of ileum and right colon with abundant attached fat. The specimen has an overall measurement of 21 x 12 x 8 cm. The ileum measures 7 cm in length by 2.3 cm in diameter. The right colon measures 16.5 cm in length by up to 5.5 cm in greatest diameter. A mass is palpated with the cecum and the serosal surface is inked black. Within the fat, a cluster of hard nodules are identified and measure 6 x 2 x 1.5 cm. Sectioning through this area identifies numerous candidate lymph nodes. The serosa is notable for a nodule measuring 0.8 x 0.6 x 0.2 cm. The specimen is received with both ends stapled. The ileum staple line measures 4.2 cm and the right colon staple line measures 4.2 cm. The specimen is opened to reveal a large fungating polypoid mass involving the cecum and abutting the transition to the terminal ileum. The mass is approximately 70% circumferential and measures 9.9 x 5.5 x 4 cm. The mass is 10 cm to the distal, 7 cm to the proximal and 8 cm to the mesenteric margins. The colonic mucosa away from the mass is notable for two polyps, 0.3 cm and 0.5 cm. A single diverticulum is identified. The terminal ileum mucosa is unremarkable. The appendix is not identified. Multiple lymph nodes are identified within the pericolic fat ranging in size from 0.5 x 0.4 x 0.3 up to 2.6 x 2.3 x 1.6 cm. Culturist sections are submitted: A1 - proximal margin; A2-A3 - distal margin; A4 - mesenteric margin; A5 - diverticulum and two polyps; A6 - home furnishings sales representative tumor; A7 - nearest black inked serosa; A8 - tumor to serosal nodule; A9-A11 - home furnishings sales representative cross sections (A9-A10 - superficial; A11 - deep); A12 - additional section of tumor; A13 - normal ileum and colon; A14 - eight candidate lymph nodes; A15 - six candidate lymph nodes; A16 - six candidate nodes; A17 - two lymph nodes, one inked black and bisected; A18 - one node, trisected; A19 - one lymph node, trisected; A20-A21 - one lymph node, sectioned; A22-A23 - one lymph node, sectioned; A24-A26 - one lymph node, sectioned; A27 - 30 additional tumor, (A29-30 composite section). Electronically Signed Vangie Bravo MD, FCAP Electronically Signed 04/24/2021 06:48
[2021-04-23] MEDS: HYDROmorphone 0.5 MG/0.5 ML SYRINGE IV PRN (21:28)
[2021-04-24] MEDS: oxyCODONE HCL 5 MG TABLET PO PRN (05:09)
[2021-04-24] MEDS: 0.9 % SODIUM CHLORIDE 10 ML SYRINGE IV SCH ×3 (05:20→21:39)
--- NOTE | 2021-04-24 06:50 | Surgical Pathology Report ---
Histology Microscopic Diagnosis Specimen B- COLON RESECTION MESH EXPLANTATION: --- MESH GROSSLY IDENTIFIED WITH ATTACHED BENIGN ADIPOSE. --- NO MALIGNANCY IDENTIFIED. Gross Description Received in formalin labeled colon resection mesh explantation, is a 13.3 x 9.8 x 0.4 cm section of mesh with attached soft tissue. The surface is roughened quinn-pink with sparse attached fatty tissue. No mass is identified. Cotton Jammer soft tissue from the mesh is submitted. (EBD:bmw) Electronically Signed Vangie Bravo MD, FCAP Electronically Signed 04/24/2021 06:48
[2021-04-24 07:33] LABS: Basophils # (Auto) 0.01 K/mcL (0.00-0.20); Basophils % (Auto) 0.1 % (0.0-2.0); Eosinophils # (Auto) 0.29 K/mcL (0.00-0.70); Eosinophils % (Auto) 2.6 % (0.0-7.0); Hematocrit 28.8 % (36.0-48.0); Hemoglobin 8.2 g/dL (12.0-15.0); Lymphocytes # (Auto) 0.64 K/mcL (1.50-4.80); Lymphocytes % (Auto) 5.6 % (15.0-49.0); Mean Cell Volume 66.8 fL (80.0-100.0); Mean Corpuscular HGB Conc 28.5 g/dL (31.0-36.0); Mean Platelet Volume 10.5 fL (7.4-10.4); Monocytes # (Auto) 1.24 K/mcL (0.10-0.90); Monocytes % (Auto) 10.9 % (1.0-12.0); Neutrophils % (Auto) 80.8 % (38.0-78.0); Platelet Count 378 K/mcL (140-440); RBC 4.31 M/mcL (4.00-5.20); Red Cell Distribution Width 22.5 % (11.5-14.5); WBC 11.3 K/mcL (4.5-11.0)
[2021-04-24 08:26] LABS: Blood Urea Nitrogen 17 mg/dL (8-23); Calcium 10.1 mg/dL (8.6-10.4); Carbon Dioxide 31 mmol/L (22-30); Chloride 91 mmol/L (96-108); Glomerular Filtration Rate 93; Glucose 105 mg/dL (70-105)
[2021-04-24] MEDS: POTASSIUM CHLORIDE 10 MEQ TABLET PO SCH (09:01)
[2021-04-24] MEDS: SERTRALINE 50 MG TABLET PO SCH ×2 (09:01→21:39)
[2021-04-24] MEDS: HYDROCHLOROTHIAZIDE 25 MG TABLET PO SCH (09:01)
[2021-04-24] MEDS: busPIRone 5 MG TABLET PO SCH ×2 (09:01→21:39)
[2021-04-24] MEDS: LOSARTAN 50 MG TABLET PO SCH (09:02)
[2021-04-24] MEDS: SOTALOL 80 MG TABLET PO SCH ×2 (09:02→21:39)
[2021-04-24] MEDS: ENOXAPARIN 30 MG/0.3 ML SYRINGE SQ SCH (09:02)
[2021-04-24] MEDS: MAGNESIUM OXIDE 400 MG TABLET PO SCH (09:02)
[2021-04-24] MEDS ORDERED: DOCUSATE SODIUM 100 MG CAPSULE PO PRN (09:24)
[2021-04-24] MEDS ORDERED: MAGNESIUM HYDROXIDE 30 ML ORAL.SUSP PO PRN (09:25)
[2021-04-24 09:37] LABS: Prothrombin Time 23.4 sec (11.9-14.5)
[2021-04-24] MEDS ORDERED: POTASSIUM CHLORIDE 20 MEQ in DEXTROSE 5% IN WATER 250 ML IV ONE (10:00)
[2021-04-24] MEDS: WARFARIN 5 MG TABLET PO SCH (15:17)
[2021-04-24] MEDS: ACETAMINOPHEN 325 MG TABLET PO PRN ×2 (15:33→21:40)
[2021-04-25] MEDS: 0.9 % SODIUM CHLORIDE 10 ML SYRINGE IV SCH (06:01)
[2021-04-25] MEDS: POTASSIUM CHLORIDE 10 MEQ TABLET PO SCH (07:26)
[2021-04-25] MEDS: busPIRone 5 MG TABLET PO SCH (07:48)
[2021-04-25] MEDS: MAGNESIUM OXIDE 400 MG TABLET PO SCH (07:49)
[2021-04-25] MEDS: HYDROCHLOROTHIAZIDE 25 MG TABLET PO SCH (07:49)
[2021-04-25] MEDS: LOSARTAN 50 MG TABLET PO SCH (07:49)
[2021-04-25] MEDS: SOTALOL 80 MG TABLET PO SCH (07:50)
[2021-04-25] MEDS: ENOXAPARIN 30 MG/0.3 ML SYRINGE SQ SCH ×2 (07:50→08:02)
[2021-04-25] MEDS: SERTRALINE 50 MG TABLET PO SCH (07:50)
[2021-04-25 08:03] LABS: INR 2.5 (0.9-1.1); Prothrombin Time 28.4 sec (11.9-14.5)
--- NOTE | 2021-04-25 08:34 | Discharge Summary ---
Discharge Provider Provider Patient information: Note initiated : 04/25/21 at 8:32 am Service Date, if different from initiated Date: [] Patient: Annie Gomez 75 y/o F admitted on 04/17/21 for Right Hemicolectomy. Chief Complaint: [] Date of admission: 04/17/21 04:58 Discharge date: 04/25/21 Primary care physician: Jarocho Ricardo MD COURSE Hospital Course Hospital course: Patient was admitted for a open right hemicolectomy, progressed postoperatively without difficulty. She is now tolerating regular diet has full return of bowel function and pain is well controlled. Discharge diagnosis: Status post right hemicolectomy for stage III colon cancer Reason for admission: Right-sided colon cancer Procedures: Open right hemicolectomy Pertinent studies/significant findings: Pathology is T3, and N2B M0, stage III adenocarcinoma of the cecum Time Spent with Patient Time attestation: Total time spent providing and/or coordinating discharge services: Specific discharge activities: Follow-up with me in 1 to 2 weeks. Follow-up with oncology as scheduled. If need for IV chemotherapy, call clinic and we will schedule for Port-A-Cath placement. Physical Examination Vital Signs Vital signs: Temp Pulse Resp BP Pulse Ox 99.0 F 56 L 18 144/68 91 04/25/21 03:16 04/25/21 03:16 04/25/21 03:16 04/25/21 03:16 04/25/21 03:16 Discharge Plan Patient/Caregiver Discharge Instructions Activity: increase activity as tolerated Diet: Regular Diet Activity Restrictions/Additional Instructions: Progressive activity as tolerated. Diet as tolerated. May bathe as normal. Follow-up with me in 2 to 3 weeks. Prescriptions: New acetaminophen [Tylenol] 325 mg Tablet 650 mg PO Q6HP PRN (Reason: pain) Qty: 60 RF: 0 oxycodone 5 mg Tablet 5 mg PO Q4HP PRN (Reason: Per Pain Protocol) Qty: 5 RF: 0 Continued potassium chloride 10 mEq capsule, extended release 10 meq PO DAILY Qty: 90 RF: 3 buspirone 5 mg tablet 5 mg PO BID Qty: 60 RF: 6 hydrocodone-acetaminophen 7.5-325 mg tablet 1 tab PO Q6H PRN (Reason: pain) Qty: 120 RF: 0 losartan-hydrochlorothiazide 100-25 mg tablet 1 tab PO QDAY Qty: 90 RF: 3 immuneti tablet 1 tab PO QDAY RF: 0 chelated magnesium 250 mg PO QDAY RF: 0 albuterol sulfate [Ventolin HFA] 90 mcg/actuation HFA aerosol inhaler 2 puff INHALATION .COMPLEX PRN (Reason: shortness of breath or wheezing) Qty: 18 RF: 2 sotalol 120 mg tablet 60 mg PO QDAY RF: 0 warfarin 5 mg tablet See Rx Instructions PO DAILY RF: 0 sertraline 50 mg tablet 25 mg PO DAILY RF: 0 sotalol 120 mg Tablet 120 mg PO QHS RF: 0 sertraline 50 mg Tablet 50 mg PO QHS RF: 0 Follow Up Plan Follow up with: Alexander Melendrez MD [Physician] - Patient Disposition: Home, Self-Care Discharge Orders: Discharge Order (Routine); Ordered 04/25/21 Ordered By: Alexander Melendrez Pending Pending Pending: Resuscitation Status Full Code Diet Regular Diet Start FriApril 23 153 Acetaminophen (Acetaminophen 325 Mg Tablet) 650 mg PO Q6HP PRN; Protocol PRN Reason: Per Pain Protocol/Fever > 101 Last Admin: 04/24/21 21:40 Dose: 650 mg Documented by: Admin: 04/24/21 15:33 Dose: 650 mg Documented by: MATTHEW Buspirone HCl (Buspirone 5 Mg Tablet) 5 mg PO BID [facility] Admin: 04/25/21 07:48 Dose: 5 mg Documented by: Admin: 04/24/21 21:39 Dose: 5 mg Documented by: Admin: 04/24/21 09:01 Dose: 5 mg Documented by: Admin: 04/23/21 21:20 Dose: 5 mg Documented by: Admin: 04/23/21 08:14 Dose: 5 mg Documented by: Admin: 04/22/21 21:11 Dose: 5 mg Documented by: Admin: 04/22/21 08:08 Dose: 5 mg Documented by: Admin: 04/21/21 20:24 Dose: 5 mg Documented by: Admin: 04/21/21 11:31 Dose: Not Given Documented by: Admin: 04/20/21 21:32 Dose: 5 mg Documented by: Admin: 04/20/21 09:17 Dose: 5 mg Documented by: Cosigned by: Admin: 04/19/21 21:31 Dose: 5 mg Documented by: Admin: 04/19/21 09:23 Dose: 5 mg Documented by: Cosigned by: MATTHEW Admin: 04/18/21 20:51 Dose: 5 mg Documented by: Admin: 04/18/21 09:49 Dose: 5 mg Documented by: CASS Calcium Carbonate/Glycine (Calcium Carbonate 500 Mg Tab.Chew) 500 mg CHEWED Q4HP PRN PRN Reason: Dyspepsia Last Admin: 04/23/21 16:32 Dose: 500 mg Documented by: Admin: 04/19/21 17:38 Dose: 500 mg Documented by: MATTHEW Docusate Sodium (Docusate Sodium 100 Mg Capsule) 100 mg PO BIDP PRN PRN Reason: Constipation Last Admin: 04/24/21 17:55 Dose: 100 mg Documented by: JOHN Enoxaparin Sodium (Enoxaparin 30 Mg/0.3 Ml Syringe) 30 mg SQ DAILY [facility] Last Admin: 04/25/21 08:02 Dose: Not Given Documented by: Admin: 04/24/21 09:02 Dose: 30 mg Documented by: Admin: 04/23/21 08:16 Dose: 30 mg Documented by: Admin: 04/22/21 08:54 Dose: 30 mg Documented by: Admin: 04/21/21 11:32 Dose: Not Given Documented by: Admin: 04/20/21 09:20 Dose: 30 mg Documented by: Cosigned by: Admin: 04/19/21 12:09 Dose: 30 mg Documented by: Cosigned by: Admin: 04/18/21 08:25 Dose: 30 mg Documented by: CASS Hydrochlorothiazide (Hydrochlorothiazide 25 Mg Tablet) 25 mg PO DAILY [facility] Last Admin: 04/25/21 07:49 Dose: 25 mg Documented by: Admin: 04/24/21 09:01 Dose: 25 mg Documented by: Admin: 04/23/21 08:16 Dose: 25 mg Documented by: Admin: 04/22/21 08:08 Dose: 25 mg Documented by: Admin: 04/21/21 13:10 Dose: 25 mg Documented by: Admin: 04/20/21 09:19 Dose: 25 mg Documented by: Cosigned by: Admin: 04/19/21 09:22 Dose: 25 mg Documented by: Cosigned by: MATTHEW Admin: 04/18/21 09:49 Dose: 25 mg Documented by: CASS Hydromorphone HCl (Hydromorphone 0.5 Mg/0.5 Ml Syringe) 0.5 mg IV Q2HP PRN; Protocol PRN Reason: Per Pain Protocol Last Admin: 04/23/21 21:28 Dose: 0.5 mg Documented by: Admin: 04/22/21 15:23 Dose: 0.5 mg Documented by: Admin: 04/22/21 00:32 Dose: 0.5 mg Documented by: Admin: 04/21/21 15:59 Dose: 0.5 mg Documented by: Admin: 04/20/21 21:32 Dose: 0.5 mg Documented by: Admin: 04/20/21 13:03 Dose: 0.5 mg Documented by: Admin: 04/20/21 07:39 Dose: 0.5 mg Documented by: Admin: 04/20/21 04:22 Dose: 0.5 mg Documented by: Admin: 04/19/21 21:36 Dose: 0.5 mg Documented by: Admin: 04/19/21 14:29 Dose: 0.5 mg Documented by: Admin: 04/19/21 09:48 Dose: 0.5 mg Documented by: MATTHEW Losartan Potassium (Losartan 50 Mg Tablet) 100 mg PO DAILY [facility] Admin: 04/25/21 07:49 Dose: 100 mg Documented by: Admin: 04/24/21 09:02 Dose: 100 mg Documented by: Admin: 04/23/21 08:16 Dose: 100 mg Documented by: Admin: 04/22/21 08:07 Dose: 100 mg Documented by: Admin: 04/21/21 13:11 Dose: 100 mg Documented by: Admin: 04/20/21 09:18 Dose: 100 mg Documented by: Cosigned by: Admin: 04/19/21 09:26 Dose: 100 mg Documented by: Cosigned by: MATTHEW Admin: 04/18/21 09:49 Dose: 100 mg Documented by: CASS Magnesium Oxide (Magnesium Oxide 400 Mg Tablet) 400 mg PO DAILY [facility] Last Admin: 04/25/21 07:49 Dose: 400 mg Documented by: Admin: 04/24/21 09:02 Dose: 400 mg Documented by: Admin: 04/23/21 08:15 Dose: 400 mg Documented by: Admin: 04/22/21 08:08 Dose: 400 mg Documented by: ALBERTO Morphine Sulfate (Morphine 4 Mg/Ml Vial) 4 mg IV Q4HP PRN; Protocol PRN Reason: Per Pain Protocol Last Admin: 04/17/21 14:24 Dose: 4 mg Documented by: PILY Ondansetron HCl (Ondansetron 4 Mg/2 Ml Vial) 4 mg IV Q6HP PRN PRN Reason: Nausea And Vomiting Last Admin: 04/23/21 13:03 Dose: 4 mg Documented by: Admin: 04/22/21 23:00 Dose: 4 mg Documented by: Admin: 04/22/21 00:31 Dose: 4 mg Documented by: Admin: 04/21/21 15:30 Dose: 4 mg Documented by: Admin: 04/21/21 08:43 Dose: 4 mg Documented by: Admin: 04/20/21 21:31 Dose: 4 mg Documented by: Admin: 04/20/21 12:09 Dose: 4 mg Documented by: Admin: 04/18/21 23:24 Dose: 4 mg Documented by: Admin: 04/18/21 17:16 Dose: 4 mg Documented by: CASS Oxycodone HCl (Oxycodone Hcl 5 Mg Tablet) 5 mg PO Q4HP PRN; Protocol PRN Reason: Per Pain Protocol Last Admin: 04/24/21 05:09 Dose: 5 mg Documented by: Admin: 04/23/21 19:14 Dose: 5 mg Documented by: Admin: 04/23/21 13:33 Dose: 5 mg Documented by: Admin: 04/23/21 07:49 Dose: 5 mg Documented by: Admin: 04/22/21 08:08 Dose: 5 mg Documented by: Admin: 04/21/21 03:06 Dose: 5 mg Documented by: Admin: 04/18/21 16:19 Dose: 5 mg Documented by: Admin: 04/18/21 12:02 Dose: 5 mg Documented by: Admin: 04/18/21 04:32 Dose: 5 mg Documented by: Admin: 04/17/21 19:06 Dose: 5 mg Documented by: LINDA Potassium Chloride (Potassium Chloride 10 Meq Tablet) 10 meq PO [facility] Last Admin: 04/25/21 07:26 Dose: 10 meq Documented by: Admin: 04/24/21 09:01 Dose: 10 meq Documented by: Admin: 04/23/21 08:16 Dose: 10 meq Documented by: Admin: 04/22/21 08:08 Dose: 10 meq Documented by: ALBERTO Sertraline HCl (Sertraline 50 Mg Tablet) 50 mg PO QHS [facility] Last Admin: 04/24/21 21:39 Dose: 50 mg Documented by: Admin: 04/23/21 21:20 Dose: 50 mg Documented by: Admin: 04/22/21 21:10 Dose: 50 mg Documented by: Admin: 04/21/21 20:24 Dose: 50 mg Documented by: Admin: 04/20/21 21:32 Dose: 50 mg Documented by: Admin: 04/19/21 21:31 Dose: 50 mg Documented by: Admin: 04/18/21 20:50 Dose: 50 mg Documented by: DAYANA Sertraline HCl (Sertraline 50 Mg Tablet) 25 mg PO DAILY [facility] Admin: 04/25/21 07:50 Dose: 25 mg Documented by: Admin: 04/24/21 09:01 Dose: 25 mg Documented by: Admin: 04/23/21 08:15 Dose: 25 mg Documented by: Admin: 04/22/21 08:08 Dose: 25 mg Documented by: Admin: 04/21/21 11:32 Dose: Not Given Documented by: Admin: 04/20/21 09:15 Dose: 25 mg Documented by: Cosigned by: Admin: 04/19/21 09:26 Dose: 25 mg Documented by: Cosigned by: MATTHEW Admin: 04/18/21 09:49 Dose: 25 mg Documented by: CASS Sodium Chloride (0.9 % Sodium Chloride 10 Ml Syringe) 10 ml IV Q8 [facility] Admin: 04/25/21 06:01 Dose: Not Given Documented by: Admin: 04/24/21 21:39 Dose: 10 ml Documented by: Admin: 04/24/21 15:17 Dose: 10 ml Documented by: Admin: 04/24/21 05:20 Dose: 10 ml Documented by: Admin: 04/23/21 21:21 Dose: 10 ml Documented by: Admin: 04/23/21 16:32 Dose: 10 ml Documented by: Admin: 04/23/21 05:09 Dose: 10 ml Documented by: Admin: 04/22/21 21:13 Dose: 10 ml Documented by: Admin: 04/22/21 13:47 Dose: 10 ml Documented by: Admin: 04/22/21 04:28 Dose: 10 ml Documented by: Admin: 04/21/21 21:49 Dose: 10 ml Documented by: Admin: 04/21/21 14:29 Dose: Not Given Documented by: Admin: 04/21/21 04:54 Dose: 10 ml Documented by: Admin: 04/20/21 21:34 Dose: 10 ml Documented by: Admin: 04/20/21 16:12 Dose: 10 ml Documented by: Admin: 04/20/21 04:50 Dose: Not Given Documented by: Admin: 04/19/21 22:46 Dose: Not Given Documented by: Admin: 04/19/21 14:29 Dose: Not Given Documented by: Admin: 04/19/21 05:21 Dose: Not Given Documented by: DAYANA Sotalol HCl (Sotalol 80 Mg Tablet) 120 mg PO QHS [facility] Admin: 04/24/21 21:39 Dose: 120 mg Documented by: Admin: 04/23/21 21:20 Dose: 120 mg Documented by: Admin: 04/22/21 21:11 Dose: 120 mg Documented by: Admin: 04/21/21 20:24 Dose: 120 mg Documented by: Admin: 04/20/21 21:32 Dose: 120 mg Documented by: Admin: 04/19/21 21:31 Dose: 120 mg Documented by: Admin: 04/18/21 20:47 Dose: 120 mg Documented by: DAYANA Sotalol HCl (Sotalol 80 Mg Tablet) 60 mg PO DAILY [facility] Admin: 04/25/21 07:50 Dose: 60 mg Documented by: Admin: 04/24/21 09:02 Dose: 60 mg Documented by: Admin: 04/23/21 08:16 Dose: 60 mg Documented by: Admin: 04/22/21 08:06 Dose: 60 mg Documented by: Admin: 04/21/21 13:11 Dose: 60 mg Documented by: Admin: 04/20/21 09:18 Dose: 60 mg Documented by: Cosigned by: Admin: 04/19/21 09:23 Dose: 60 mg Documented by: Cosigned by: MATTHEW Warfarin Sodium (Warfarin 5 Mg Tablet) 5 mg PO [id number] [facility] Admin: 04/24/21 15:17 Dose: 5 mg Documented by: Admin: 04/23/21 13:02 Dose: 5 mg Documented by: Admin: 04/22/21 13:47 Dose: 5 mg Documented by: Admin: 04/21/21 15:59 Dose: 5 mg Documented by: Admin: 04/20/21 16:12 Dose: 5 mg Documented by: Admin: 04/19/21 14:29 Dose: 5 mg Documented by: MATTHEW Shift Summary 04/25/21 04:52 Shift Summary by Joleen Alba The patient is very pleasant and alert/oriented times four, uses call light appropiately and is up with 1 assist/FWW/gaitbelt to the restroom. 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 Her right hemicolectomy midline incision is well approximated with Dermabond in place, active bowel tones, large loose brown stool last evening. Is adamantly refusing PO/IV pain medication for fear of opioid induced constipation now first BM has occurred and despite education given she is requesting only APAP infrequently and had non verbal cues of pain but is reserved/guarded this shift. Only updates to be given via the phone or in person to her spouse or daughter Kamilla and not her son, family has been informed with MD of recent lymph node involvement. 2 LPM N/C at [facility] for NEL, VSS, RA while awake, plans to discharge to home with spouse and home health when able and has her oncologist appointment setup in [place]. Will update shift summary report at bedside. Initialized on 04/25/21 04:52 - END OF NOTE
[2021-04-25] MEDS: ACETAMINOPHEN 325 MG TABLET PO PRN (10:13)
[2021-04-25] MEDS ORDERED: WARFARIN 2.5 MG TABLET PO SCH (14:00)
== END 2021-04-25 12:00 | disposition home or self-care (01) | DRG 330 ==
LOC: MEDSUR 04:58 → EDSTATUS 07:30
PROVIDERS: ADMIT Surgery; ATTEND Surgery

== ENCOUNTER 2021-05-13 11:23 | Inpatient (IN) ==
[2021-05-13] MEDS ORDERED: IOPAMIDOL 100 ML BOTTLE IV ONE (11:24)
--- NOTE | 2021-05-13 11:44 | Emergency Department Note ---
Abdominal Pain HPI General Chief Complaint: Constipation Stated Complaint: constipation Time Seen by Provider: 05/13/21 11:33 Source: patient Mode of arrival: ambulatory Limitations: no limitations History of Present Illness HPI Narrative: Narrative: Presents to room E4 for evaluation of abdominal discomfort and decreased bowel movements. The patient is status post right partial colectomy secondary to stage III colon cancer. The patient had multiple positive lymph nodes but currently is not a candidate for chemotherapy as it is felt that she will be unable to tolerate the treatment. She reports over the last 5 days she is had decreased bowel movements. They have tried Colace without success. The patient has passed a small amount of mucus. She also is reporting diffuse abdominal cramping. She does intermittent. No exacerbating or alleviating factors. She denies any specific abdominal distention or vomiting. No fevers. She does report some intermittent chills. Related Data Home Medications Medication Instructions Recorded Confirmed sotalol 120 mg tablet 60 mg PO QDAY 07/05/20 05/13/21 warfarin 5 mg tablet See Rx Instructions PO DAILY 09/14/20 05/13/21 chelated magnesium 250 mg PO QDAY 04/12/21 05/13/21 immuneti 1 tab PO QDAY 04/12/21 05/13/21 sertraline 25 mg PO DAILY 04/13/21 05/13/21 sotalol 120 mg PO QHS 04/17/21 05/13/21 acetaminophen 500 mg/15 mL oral 325 mg PO Q6H PRN 05/02/21 05/13/21 liquid Previous Rx's Medication Instructions Recorded potassium chloride 10 mEq 10 meq PO DAILY #90 cap 05/16/20 capsule,extended release buspirone 5 mg tablet 5 mg PO BID #60 tab 12/11/20 albuterol sulfate 90 mcg/actuation 2 puff INHALATION .COMPLEX PRN #18 12/22/20 aerosol inhaler g hydrocodone 7.5 mg-acetaminophen 1 tab PO Q6H PRN #120 tab 03/12/21 325 mg tablet losartan 100 1 tab PO QDAY #90 tab 04/02/21 mg-hydrochlorothiazide 25 mg tablet acetaminophen [Tylenol] 650 mg PO Q6HP PRN #60 tab 04/25/21 oxycodone 5 mg PO Q4HP PRN #5 tab 04/25/21 nystatin 100,000 unit/mL oral 6 ml PO QID 10 Days #240 ml 05/04/21 suspension acetaminophen-codeine 5 ml PO Q6H PRN #118 ml 05/08/21 sertraline 50 mg tablet See Rx Instructions .ROUTE 05/09/21 .COMPLEX #30 tablet Allergies Allergy/AdvReac Type Severity Reaction Status Date / Time ibuprofen Allergy Intermediate Shortness Verified 05/13/21 11:28 of Breath Amoxicillin [From Augmentin] AdvReac Intermediate Nausea/Vomiting Verified 05/13/21 11:28 and Diarrhea clavulanic acid AdvReac Intermediate Nausea/Vomiting Verified 05/13/21 11:28 [From Augmentin] and Diarrhea Review of Systems ROS ROS Narrative: Narrative: All systems ED: reviewed and negative except as stated. [facility] Narrative Patient History Narrative: Narrative: Medical/Surgical/Family History All Active Problems (Updated 05/13/21 @ 13:36 by Ishmael Arndt MD) Abdominal pain (Acute) Abscess of abdominal cavity (Acute) Adenocarcinoma of cecum (Acute) Arthritis of left wrist (Acute) Arthritis of left wrist (Acute) Fatigue (Acute) Generalized abdominal pain with weight loss (Acute) Diarrhea (Acute) Vomiting (Acute) Sinusitis (Acute) UTI (urinary tract infection) (Acute) Contusion of right ankle (Acute) Contusion of right hand, sequela (Acute) Contusion of left hand, initial encounter (Acute) Medicare annual wellness visit, subsequent (Acute) Obstructive sleep apnea (Acute) Left shoulder strain (Acute) 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) Metabolic syndrome X (Chronic) Hyperlipidemia (Chronic) Depression (Chronic) Diverticular disease (Chronic) Osteoarthritis (Chronic) Knee pain (Chronic) Menopausal symptoms (Chronic) Hernia (Chronic) Plantar fasciitis (Chronic) Allergic rhinitis (Chronic) Dysphagia (Chronic) Reactive airway disease (Chronic) TIA (transient ischemic attack) (Chronic) Asthma (Chronic) Anticoagulation management encounter (Chronic) Abnormal mammogram (Chronic) Sleep apnea (Chronic) History of Coumadin therapy (Chronic) Atrial fibrillation (Chronic) Hypertension (Chronic) Hypokalemia due to excessive gastrointestinal loss of potassium (Chronic) Change in bowel habit (Chronic) Abdominal pain (Chronic) Renal calculus, right (Chronic) Common bile duct stricture (Chronic) Food sticks on swallowing (Chronic) GERD (gastroesophageal reflux disease) (Chronic) Bronchitis (Chronic) Hypokalemia (Chronic) Medical History Abdominal pain [facility] [phone] Abnormal mammogram Allergic rhinitis Anticoagulation management encounter Asthma Atrial fibrillation Bronchitis Change in bowel habit Common bile duct stricture Depression Diverticular disease Dysphagia Solids-history of dilation several years ago Food sticks on swallowing GERD (gastroesophageal reflux disease) Hernia History of Coumadin therapy Hyperlipidemia Hypertension Hypokalemia due to excessive gastrointestinal loss of potassium Knee pain Menopausal symptoms Metabolic syndrome X Osteoarthritis Plantar fasciitis Prolapse of vaginal wall with midline cystocele Reactive airway disease Renal calculus, right Sleep apnea TIA (transient ischemic attack) Surgical History History of appendectomy History of breast biopsy History of cervical spinal surgery Ruptured discs. History of colon resection History of colonoscopy 03/2021 History of hysterectomy History of right knee surgery History of ventral hernia repair Family History Father , Age 69 Lung cancer Sister Breast cancer Mother , Age 81 No problems noted. Social History Smoking Status: Former smoker Alcohol Intake Frequency: does not drink Substance Use: does not use Exam Narrative Narrative: Narrative: General Limitations: no limitations General appearance: Present alert and in no apparent distress Head Head: Present atraumatic, normocephalic and normal inspection Eye Eye: Present normal appearance and EOMI; Absent conjunctival injection ENT ENT: Present normal exam and mucous membranes moist Neck Neck: Present normal inspection and trachea midline Respiratory Respiratory: Present normal lung sounds bilaterally; Absent respiratory distress Cardiovascular Cardiovascular: Present regular rate, normal rhythm and normal heart sounds Adbominal Abdominal: Present soft, tenderness (Mild diffuse tenderness to palpation, no rebound or guarding.) and normal bowel sounds; Absent distention, guarding and rebound Extremities Extremities: Present normal inspection; Absent tenderness Back Back: Present normal inspection; Absent tenderness Neurological Neurological: Present alert, oriented X3 and CN II-XII intact; Absent motor sensory deficit Psychiatric Psychiatric: Present normal affect and normal mood Skin Skin: Present warm (WNL) and dry; Absent rash Course Vital Signs Vital signs: Vital Signs Temperature 96.7 F L 05/13/21 11:25 Pulse Rate 65 05/13/21 11:25 Respiratory Rate 16 05/13/21 11:25 Blood Pressure 111/64 05/13/21 11:25 Pulse Oximetry (%) 96 05/13/21 11:25 Temperature 96.7 F L 05/13/21 11:25 Pulse Rate 53 L 05/13/21 13:01 Respiratory Rate 16 05/13/21 11:25 Blood Pressure 128/50 05/13/21 13:01 Pulse Oximetry (%) 93 05/13/21 13:01 [facility] Narrative Medical decision making narrative: Narrative: The patient presents for evaluation of decreased bowel movements and associated pain with bowel movements. Patient does not have fever but has had some chills. CT scan of the abdomen pelvis shows 3 distinct areas of fluid collection the largest being in the right perirectal space. There is also noted to be a fluid collection in the right iliopsoas recess and the right rectus fascia. These are suspicious for abscesses. Consideration is given to the possibility of a small anastomotic leak as a source. The patient was given IV antibiotics after blood cultures. I have discussed the case with the on-call surgeon, Dr. Walsh who is covering Dr. Melendrez's practice. He will be admitting the patient. I also discussed the case with the radiologist including findings on CT scan. We will proceed with attempts to percutaneously drain the largest of the fluid collections in the perirectal space. Lab Data Lab results reviewed: Yes I reviewed the patient's lab results. Result diagrams: 05/13/21 11:53 05/13/21 11:53 Labs: Lab Results 05/13/21 05/13/21 05/13/21 Range/Units 11:53 11:53 11:53 WBC 11.9 H (4.5-11.0) K/mcL RBC 4.42 (4.00-5.20) M/mcL Hgb 8.6 L (12.0-15.0) g/dL Hct 29.5 L (36.0-48.0) % MCV 66.7 L (80.0-100.0) fL MCH 19.5 L (26.0-34.0) pg MCHC 29.2 L (31.0-36.0) g/dL RDW 23.4 H (11.5-14.5) % Plt Count 463 H (140-440) K/mcL MPV 9.7 (7.4-10.4) fL Neut % (Auto) 82.2 H (38.0-78.0) % Lymph % (Auto) 8.6 L (15.0-49.0) % [place] % (Auto) 8.7 (1.0-12.0) % Eos % (Auto) 0.3 (0.0-7.0) % Baso % (Auto) 0.2 (0.0-2.0) % Lymph # (Auto) 1.02 L (1.50-4.80) K/mcL [place] # (Auto) 1.04 H (0.10-0.90) K/mcL Eos # (Auto) 0.04 (0.00-0.70) K/mcL Baso # (Auto) 0.02 (0.00-0.20) K/mcL Absolute Neutrophils 9.80 H (1.80-8.00) K/mcL VBG Lactic Acid 1.3 (0.5-2.0) mmol/L Sodium 129 L (133-145) mmol/L Potassium 3.4 (3.3-5.1) mmol/L Chloride 94 L (96-108) mmol/L Carbon Dioxide 23 (22-30) mmol/L Anion Gap 12.0 (8.0-16.0) BUN 8 (8-23) mg/dL Creatinine 0.6 (0.6-1.1) mg/dL GFR Calculation 87 Glucose 127 H (70-105) mg/dL Calcium 9.8 (8.6-10.4) mg/dL Total Bilirubin 0.4 (0.1-1.0) mg/dL AST 20 (<32) U/L ALT 23 (<40) U/L Alkaline Phosphatase 90 (39-117) U/L Total Protein 6.2 (5.9-8.4) gm/dL Albumin 2.6 L (3.2-5.2) gm/dL Globulin 3.6 (2.2-3.7) gm/dL Albumin/Globulin Ratio 0.7 L (1.0-2.3) Radiology Data Radiology results reviewed: Yes I reviewed the patient's radiology results. Discharge Plan Patient/Caregiver Discharge Instructions Pt seen by SALES RESEARCH ANALYST/PA only: No Clinical Impression: Abdominal pain, Abscess of abdominal cavity Patient Disposition: Xfer As Inpt ([facility]) Follow up with: Sheila Mancera ARNP [Primary Care Provider] - Prescriptions: No Action potassium chloride 10 mEq capsule, extended release 10 meq PO DAILY Qty: 90 RF: 3 buspirone 5 mg tablet 5 mg PO BID Qty: 60 RF: 6 hydrocodone-acetaminophen 7.5-325 mg tablet 1 tab PO Q6H PRN (Reason: pain) Qty: 120 RF: 0 losartan-hydrochlorothiazide 100-25 mg tablet 1 tab PO QDAY Qty: 90 RF: 3 nystatin 100,000 unit/mL suspension 6 ml PO QID 10 Days Qty: 240 RF: 0 acetaminophen-codeine 120-12 mg/5 mL solution 5 ml PO Q6H PRN (Reason: pain) Qty: 118 RF: 0 sertraline 50 mg tablet See Rx Instructions .ROUTE .COMPLEX Qty: 30 RF: 6 immuneti tablet 1 tab PO QDAY RF: 0 chelated magnesium 250 mg PO QDAY RF: 0 acetaminophen 500 mg/15 mL liquid 325 mg PO Q6H PRN (Reason: Pain) RF: 0 albuterol sulfate [Ventolin HFA] 90 mcg/actuation HFA aerosol inhaler 2 puff INHALATION .COMPLEX PRN (Reason: shortness of breath or wheezing) Qty: 18 RF: 2 sotalol 120 mg tablet 60 mg PO QDAY RF: 0 warfarin 5 mg tablet See Rx Instructions PO DAILY RF: 0 sertraline 50 mg tablet 25 mg PO DAILY RF: 0 sotalol 120 mg Tablet 120 mg PO QHS RF: 0 acetaminophen [Tylenol] 325 mg Tablet 650 mg PO Q6HP PRN (Reason: pain) Qty: 60 RF: 0 oxycodone 5 mg Tablet 5 mg PO Q4HP PRN (Reason: Per Pain Protocol) Qty: 5 RF: 0
[2021-05-13 12:53] LABS: Basophils # (Auto) 0.02 K/mcL (0.00-0.20); Basophils % (Auto) 0.2 % (0.0-2.0); Eosinophils # (Auto) 0.04 K/mcL (0.00-0.70); Eosinophils % (Auto) 0.3 % (0.0-7.0); Hematocrit 29.5 % (36.0-48.0); Hemoglobin 8.6 g/dL (12.0-15.0); Lymphocytes # (Auto) 1.02 K/mcL (1.50-4.80); Lymphocytes % (Auto) 8.6 % (15.0-49.0); Mean Cell Volume 66.7 fL (80.0-100.0); Mean Corpuscular HGB Conc 29.2 g/dL (31.0-36.0); Mean Platelet Volume 9.7 fL (7.4-10.4); Monocytes # (Auto) 1.04 K/mcL (0.10-0.90); Monocytes % (Auto) 8.7 % (1.0-12.0); Neutrophils % (Auto) 82.2 % (38.0-78.0); Platelet Count 463 K/mcL (140-440); RBC 4.42 M/mcL (4.00-5.20); Red Cell Distribution Width 23.4 % (11.5-14.5); WBC 11.9 K/mcL (4.5-11.0)
[2021-05-13 13:03] LABS: ALT/SGPT 23 U/L (<40); AST/SGOT 20 U/L (<32); Albumin 2.6 gm/dL (3.2-5.2); Albumin/Globulin Ratio 0.7 (1.0-2.3); Alkaline Phosphatase 90 U/L (39-117); Bilirubin,Total 0.4 mg/dL (0.1-1.0); Blood Urea Nitrogen 8 mg/dL (8-23); Calcium 9.8 mg/dL (8.6-10.4); Carbon Dioxide 23 mmol/L (22-30); Chloride 94 mmol/L (96-108); Globulin 3.6 gm/dL (2.2-3.7); Glomerular Filtration Rate 87; Glucose 127 mg/dL (70-105)
[2021-05-13] MEDS ORDERED: PIPERACILLIN SODIUM/TAZOBACTAM 3.375 GM in DEXTROSE 5% IN WATER 50 ML IV ONE (13:06)
[2021-05-13] MEDS ORDERED: VANCOMYCIN 1,000 MG in 0.9 % SODIUM CHLORIDE 250 ML IV ONE (13:06)
[2021-05-13] MEDS ORDERED: LORazepam 2 MG/ML ORAL.SOL PO ONE (14:16)
[2021-05-13] MEDS ORDERED: LORazepam 2 MG/ML VIAL ONE (14:25)
[2021-05-13] MEDS ORDERED: LORazepam 2 MG/ML VIAL IV ONE (14:29)
[2021-05-13] MEDS ORDERED: PROMETHAZINE 25 MG/ML VIAL IV PRN (14:40)
--- NOTE | 2021-05-13 14:40 | General Surg History&Physical ---
HPI History of Present Illness Patient information: Note initiated : 05/13/21 at 2:28 pm Service Date, if different from initiated Date: [] Patient: Annie Gomez a 75 y/o F admitted on for constipation. Chief Complaint: [] Chief complaint: Multiple intra-abdominal abscesses History of present illness: Ms. Gomez is a 75 year old F admitted via the ER with multiple intra-abdominal abscesses. 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 She started having flatus on the second postoperative day but gradually improved. Over the past 5 days she has had increasing abdominal pain and severe discomfort with bowel movements. She has stopped having bowel movement and has had minimal flatus. She has sweats but denies fever or chills. She really c danielle to the emergency room because of severe abdominal pain and constipation. CT shows a very large abscess of the pelvis encroaching upon the retrorectal space and 2 small abscesses in the upper abdomen and in the retroperitoneum along the iliopsoas muscle on the right. There is no free peritoneal air though a chronic slow leak from the anastomosis is suspected. Patient is admitted and will have percutaneous drainage of the larger abscess by radiology. An attempt will be made to treat the smaller lesions with vigorous antibiotics. She is very weak but does not appear to be toxic. Her white blood count is 11.9 and hemoglobin 8.6. Lactic acid is 1.3. BUN is 8 and creatinine is 0.6. Constitutional Constitutional: Present anorexia, fatigue, lethargy, malaise, night sweats, weakness and weight loss EENT Ears: Absent ear discharge and ear pain Nose, mouth and throat: Present dysphagia; Absent abnormal hearing, headache(s), hoarseness, sore throat and throat swelling Cardiovascular Cardiovascular: Absent chest pain, chest pain with activity, dyspnea on exertion, lightheadedness, rapid heart rate and syncope Respiratory Respiratory: Present cough and dyspnea on exertion; Absent chest congestion Gastrointestinal Gastrointestinal: Present abdominal pain, belching, change in bowel habits, constipation, cramping, nausea and vomiting; Absent heartburn Genitourinary Genitourinary: Absent dysuria and hematuria Musculoskeletal Musculoskeletal: Absent abnormal gait, arthralgias and myalgias Neurological Neurological: Present abnormal gait (Generalized weakness and requires wheelchair); Absent convulsions, numbness and syncope Psychiatric Psychiatric: Present depression Endocrine Endocrine: Absent flushing, heat intolerance and palpitations Hematologic/Lymphatic Hematologic/Lymphatic: Present easy bruising and lymphadenopathy; Absent easy bleeding Additional comments: Chronic warfarin therapy Allergic/Immunologic Allergic/Immunologic: Absent tongue swelling, throat swelling, uticaria, wheezing and lip swelling PFSH PFSH All Active Problems (Updated 05/13/21 @ 13:36 by Ishmael Arndt MD) Abdominal pain (Acute) Abscess of abdominal cavity (Acute) Adenocarcinoma of cecum (Acute) Arthritis of left wrist (Acute) Arthritis of left wrist (Acute) Fatigue (Acute) Generalized abdominal pain with weight loss (Acute) Diarrhea (Acute) Vomiting (Acute) Sinusitis (Acute) UTI (urinary tract infection) (Acute) Contusion of right ankle (Acute) Contusion of right hand, sequela (Acute) Contusion of left hand, initial encounter (Acute) Medicare annual wellness visit, subsequent (Acute) Obstructive sleep apnea (Acute) Left shoulder strain (Acute) 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) Metabolic syndrome X (Chronic) Hyperlipidemia (Chronic) Depression (Chronic) Diverticular disease (Chronic) Osteoarthritis (Chronic) Knee pain (Chronic) Menopausal symptoms (Chronic) Hernia (Chronic) Plantar fasciitis (Chronic) Allergic rhinitis (Chronic) Dysphagia (Chronic) Reactive airway disease (Chronic) TIA (transient ischemic attack) (Chronic) Asthma (Chronic) Anticoagulation management encounter (Chronic) Abnormal mammogram (Chronic) Sleep apnea (Chronic) History of Coumadin therapy (Chronic) Atrial fibrillation (Chronic) Hypertension (Chronic) Hypokalemia due to excessive gastrointestinal loss of potassium (Chronic) Change in bowel habit (Chronic) Abdominal pain (Chronic) Renal calculus, right (Chronic) Common bile duct stricture (Chronic) Food sticks on swallowing (Chronic) GERD (gastroesophageal reflux disease) (Chronic) Bronchitis (Chronic) Hypokalemia (Chronic) Medical History Abdominal pain [facility] [phone] Abnormal mammogram Allergic rhinitis Anticoagulation management encounter Asthma Atrial fibrillation Bronchitis Change in bowel habit Common bile duct stricture Depression Diverticular disease Dysphagia Solids-history of dilation several years ago Food sticks on swallowing GERD (gastroesophageal reflux disease) Hernia History of Coumadin therapy Hyperlipidemia Hypertension Hypokalemia due to excessive gastrointestinal loss of potassium Knee pain Menopausal symptoms Metabolic syndrome X Osteoarthritis Plantar fasciitis Prolapse of vaginal wall with midline cystocele Reactive airway disease Renal calculus, right Sleep apnea TIA (transient ischemic attack) Surgical History History of appendectomy History of breast biopsy History of cervical spinal surgery Ruptured discs. History of colon resection History of colonoscopy 03/2021 History of hysterectomy History of right knee surgery History of ventral hernia repair Family History Father , Age 69 Lung cancer Sister Breast cancer Mother , Age 81 No problems noted. Social History marital status: occupational status: retired smoking status: Former smoker alcohol intake frequency: does not drink substance use type: does not use MEDS/ALLERGIES Home Medications and Allergies Home Medications Medication Instructions Recorded Confirmed Type potassium chloride 10 mEq 10 meq PO DAILY #90 cap 05/16/20 05/13/21 Rx capsule,extended release sotalol 120 mg tablet 60 mg PO QDAY 07/05/20 05/13/21 History warfarin 5 mg tablet See Rx Instructions PO DAILY 09/14/20 05/13/21 History buspirone 5 mg tablet 5 mg PO BID #60 tab 12/11/20 05/13/21 Rx albuterol sulfate 90 mcg/actuation 2 puff INHALATION .COMPLEX PRN #18 12/22/20 05/13/21 Rx aerosol inhaler g hydrocodone 7.5 mg-acetaminophen 1 tab PO Q6H PRN #120 tab 03/12/21 05/13/21 Rx 325 mg tablet losartan 100 1 tab PO QDAY #90 tab 04/02/21 05/13/21 Rx mg-hydrochlorothiazide 25 mg tablet chelated magnesium 250 mg PO QDAY 04/12/21 05/13/21 History immuneti 1 tab PO QDAY 04/12/21 05/13/21 History sertraline 25 mg PO DAILY 04/13/21 05/13/21 History sotalol 120 mg PO QHS 04/17/21 05/13/21 History acetaminophen [Tylenol] 650 mg PO Q6HP PRN #60 tab 04/25/21 05/13/21 Rx oxycodone 5 mg PO Q4HP PRN #5 tab 04/25/21 05/13/21 Rx acetaminophen 500 mg/15 mL oral 325 mg PO Q6H PRN 05/02/21 05/13/21 History liquid nystatin 100,000 unit/mL oral 6 ml PO QID 10 Days #240 ml 05/04/21 05/13/21 Rx suspension acetaminophen-codeine 5 ml PO Q6H PRN #118 ml 05/08/21 05/13/21 Rx sertraline 50 mg tablet See Rx Instructions .ROUTE 05/09/21 05/13/21 Rx .COMPLEX #30 tablet Allergies Allergy/AdvReac Type Severity Reaction Status Date / Time ibuprofen Allergy Intermediate Shortness Verified 05/13/21 11:28 of Breath Amoxicillin [From Augmentin] AdvReac Intermediate Nausea/Vomiting Verified 05/13/21 11:28 and Diarrhea clavulanic acid AdvReac Intermediate Nausea/Vomiting Verified 05/13/21 11:28 [From Augmentin] and Diarrhea Physical Examination Vital Signs Vital signs: Temp Pulse Resp BP Pulse Ox 96.7 F L 52 L 15 145/68 96 05/13/21 11:25 05/13/21 14:01 05/13/21 14:01 05/13/21 14:01 05/13/21 14:01 General physical appearance General physical exam: well developed, moderate distress, moderate pain, chronically ill and obese Eyes Eye exam: PERRL, normal ocular movement and pale; negative icteric, deviation and loss of movement ENT ENT exam: no hearing loss and no congestion Head Head exam IM: Present atraumatic, normal inspection and normocephalic Neck Neck exam: no masses, no bruits, trachea midline, no lymphadenopathy and no venous distension Cardiovascular Cardiovascular exam IM: Present normal rate and rhythm, RRR, +S1, +S2 and tachycardia; Absent gallop and JVD Respiratory Respiratory exam: normal expansion, normal respiratory effort and clear to auscultation Abdomen Abdomen: Present tender (Tenderness in lower abdomen and right flank); Absent masses Integumentary Integumentary: Present no rash, no growths and no abnormal pigmentation Neurologic Neurologic: Present normal coordination and normal sensation Musculoskeletal Musculoskeletal: Present normal gait and normal posture Psychiatric Psychiatric: Present oriented to time, oriented to person, oriented to place, speech is normal and memory intact Results Labs Result diagrams: 05/13/21 11:53 05/13/21 11:53 Labs: Abnormal lab results 05/13/21 05/13/21 Range/Units 11:53 11:53 WBC 11.9 H (4.5-11.0) K/mcL Hgb 8.6 L (12.0-15.0) g/dL Hct 29.5 L (36.0-48.0) % MCV 66.7 L (80.0-100.0) fL MCH 19.5 L (26.0-34.0) pg MCHC 29.2 L (31.0-36.0) g/dL RDW 23.4 H (11.5-14.5) % Plt Count 463 H (140-440) K/mcL Neut % (Auto) 82.2 H (38.0-78.0) % Lymph % (Auto) 8.6 L (15.0-49.0) % Lymph # (Auto) 1.02 L (1.50-4.80) K/mcL [place] # (Auto) 1.04 H (0.10-0.90) K/mcL Absolute Neutrophils 9.80 H (1.80-8.00) K/mcL Sodium 129 L (133-145) mmol/L Chloride 94 L (96-108) mmol/L Glucose 127 H (70-105) mg/dL Albumin 2.6 L (3.2-5.2) gm/dL Albumin/Globulin Ratio 0.7 L (1.0-2.3) Diabetes panel 05/13/21 Range/Units 11:53 Sodium 129 L (133-145) mmol/L Potassium 3.4 (3.3-5.1) mmol/L Chloride 94 L (96-108) mmol/L Carbon Dioxide 23 (22-30) mmol/L BUN 8 (8-23) mg/dL Creatinine 0.6 (0.6-1.1) mg/dL Glucose 127 H (70-105) mg/dL Calcium 9.8 (8.6-10.4) mg/dL AST 20 (<32) U/L ALT 23 (<40) U/L Alkaline Phosphatase 90 (39-117) U/L Total Protein 6.2 (5.9-8.4) gm/dL Albumin 2.6 L (3.2-5.2) gm/dL Calcium panel 05/13/21 Range/Units 11:53 Calcium 9.8 (8.6-10.4) mg/dL Albumin 2.6 L (3.2-5.2) gm/dL Pituitary panel 05/13/21 Range/Units 11:53 Sodium 129 L (133-145) mmol/L Potassium 3.4 (3.3-5.1) mmol/L Chloride 94 L (96-108) mmol/L Carbon Dioxide 23 (22-30) mmol/L BUN 8 (8-23) mg/dL Creatinine 0.6 (0.6-1.1) mg/dL Glucose 127 H (70-105) mg/dL Calcium 9.8 (8.6-10.4) mg/dL Adrenal panel 05/13/21 Range/Units 11:53 Sodium 129 L (133-145) mmol/L Potassium 3.4 (3.3-5.1) mmol/L Chloride 94 L (96-108) mmol/L Carbon Dioxide 23 (22-30) mmol/L BUN 8 (8-23) mg/dL Creatinine 0.6 (0.6-1.1) mg/dL Glucose 127 H (70-105) mg/dL Calcium 9.8 (8.6-10.4) mg/dL Total Bilirubin 0.4 (0.1-1.0) mg/dL AST 20 (<32) U/L ALT 23 (<40) U/L Alkaline Phosphatase 90 (39-117) U/L Total Protein 6.2 (5.9-8.4) gm/dL Albumin 2.6 L (3.2-5.2) gm/dL All other labs normal. A/P Assessment and plan (1) Abscess of abdominal cavity: Status: Acute (2) Adenocarcinoma of cecum: Status: Acute (3) Obstructive sleep apnea: Status: Acute (4) Atrial fibrillation: Status: Chronic Qualifiers: Atrial fibrillation type: longstanding persistent Qualified Code(s): I48.11 - Longstanding persistent atrial fibrillation (5) GERD (gastroesophageal reflux disease): Status: Chronic Qualifiers: Esophagitis presence: esophagitis presence not specified Qualified Code(s): K21.9 - Gastro-esophageal reflux disease without esophagitis Narrative A/P Narrative: Patient is admitted for IV antibiotics and for percutaneous drain age of the pelvic abscess An attempt will be made to treat the small abscesses with long-term antibiotics. Follow-up CT will be done on to evaluate the other abscesses and the status of the pelvic abscess PT and INR will be checked Patient will be given clear liquid diet for the time being Zosyn 3.375 g IV every 6 Metronidazole 500 mg IV every 6 Time Spent With Patient Time: Total time spent is greater than 50% in coordination of care (as documented) at patient's floor/unit and/or counseling patient:
[2021-05-13 14:44] LABS: INR 5.1 (0.9-1.1); Prothrombin Time 49.7 sec (11.9-14.5)
[2021-05-13] MEDS ORDERED: ALBUTEROL SULFATE 200 PUFF INHALER INH PRN (14:49)
--- NOTE | 2021-05-13 15:42 | Cat Scan Report ---
CLINICAL INFORMATION: Abdominal and pelvic pain. 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 COMPARISON: Preoperative abdomen and pelvic CT 03/30/2021 TECHNIQUE: Following enteric contrast, 80 cc of Isovue-370 were injected intravenously, and 60 seconds later, 0.625 mm helical slices were obtained from the mid heart through the subtrochanteric regions. Following reconstruction, 2.5 mm sagittal, coronal and axial reformatted images were processed and reviewed at bone, lung and soft tissue windows. Five minutes later, 0.625 mm helical slices were obtained from the mid heart through the kidneys and viewed at soft tissue windows.The exam was performed using radiation dose optimization techniques including, but not limited to, automated exposure control, adjustment of the mA and/or kV according to patient size and use of iterative reconstruction technique. FINDINGS: The lung bases show no abnormality. No effusions. The visualized heart is mildly enlarged with a small amount of calcification in the mitral and aortic valves. Abdominal images show the gallbladder is surgically absent. There is mild dilatation of the intrahepatic and common bile ducts: CBD is 11 mm. this is unchanged and compatible post cholecystectomy state. A 17 mm ring-enhancing lesion has developed in the anterior segment the right hepatic lobe on image 42. It is suspicious for a solitary metastatic lesion from colon carcinoma. The pancreas, both adrenal glands spleen and aorta, including aortic branches, are normal in size, configuration and attenuation without focal lesion. A 20 mm nonobstructing staghorn calculus, filling the inferior calyces of the left kidney, again noted. Simple cysts on both kidneys are stable. There is no free air, free fluid or definite adenopathy. Pelvic images show hysterectomy changes. The ovaries not identified and, presumably, surgically absent or atrophic. Urinary bladder is normal. A 8 cm thick walled fluid collection has developed in the right distal perisigmoid/ perirectal region - suspicious for an abscess. It displaces and moderately narrows the distal sigmoid colon and rectum. A 3 cm thick walled fluid collection, anterior to the primary anastomosis in the ascending colon, likely represents a second abscess. A third thick walled fluid collection, spanning 3.5 cm, is seen in the right anterior parapsoas region. Cecal resection with primary anastomosis of the ileum to the right colon appreciated. The remaining small bowel and large bowel and stomach are normal. No evidence of bowel obstruction. Bone windows show no metastatic lesions or other osseous abnormality IMPRESSION: 1. 8 cm thick walled fluid collection in the right perisigmoid/perirectal region suspicious for abscess. Two smaller abscesses appreciated: 3 cm in the anterior mid abdomen adjacent to the primary anastomosis and 3.5 cm in the anterior right peripsoas region. The largest abscess will be treated with CT-guided percutaneous drainage tube. The two smaller abscesses will likely respond to antibiotic therapy. 2. 17 mm ring-enhancing lesion in the anterior segment of the right hepatic lobe - new since a comparison CT just six weeks prior. It is suspicious for solitary metastasis from known colon carcinoma. 3. 20 mm staghorn calculus filling inferior calyces of left kidney - stable 4. 3-4 simple renal cysts - stable. Interpreted and Authenticated by: Timothy George 05/13/21
[2021-05-13] MEDS ORDERED: LIDOCAINE 1% 20 ML VIAL SQ ONE (15:46)
[2021-05-13] MEDS: 0.9 % SODIUM CHLORIDE 1,000 ML IV SCH (16:38)
--- NOTE | 2021-05-13 20:17 | Cat Scan Report ---
CLINICAL INFORMATION: 8 cm abscess in the right perirectal region TECHNIQUE: The procedure and risks including the possibility of bleeding and infection were explained to the patient. She understood were wished to proceed. She was given Ativan hearing healthcare practitioner from emergency room prior to entering our department. With the patient prone on the CT table, the right pararectal abscess was first CT localized. The skin, in the right pericoccygeal area, was marked, prepped and locally anesthetized with lidocaine using a 25-gauge spinal needle to the abscess capsule level. 17-gauge styletted needle was then placed, under CT guidance, in the central aspect of the cavity. The stylette was removed and a 0.035 J-wire was coiled in the cavity. The cavity was dilated to 12 Monegasque and a a 12 Monegasque APD pigtail drain was placed. 110 cc of sanguinopurulent fluid was aspirated and sent for Gram stain, culture and sensitivity. The cavity was then irrigated with 20 cc aliquots of normal sterile saline: total volume 120. The tube was secured to the skin with 0 silk suture and adhesive disc and left to gravity bag drainage. Postprocedure scanning shows the cavity was completely collapsed. No complication IMPRESSION: Successful placement of 12 Monegasque APD drain into right perirectal abscess yielding 110 cc of sanguinopurulent fluid. The fluid were sent for Gram stain and culture. The cavity was then irrigated. Postprocedure scanning shows the cavity is completely collapsed. Orders were written to flush the tube with 10 cc of saline forward and back every six hours report the net output. Suggest: repeat CT with the tube drainage is less than 5 cc over 24 hours. If the cavity remains collapsed, the tube could be removed Interpreted and Authenticated by: Timothy George 05/13/21
[2021-05-13] MEDS ORDERED: SOTALOL 120 MG PO SCH (21:00)
[2021-05-13] MEDS: traZODone HCL 50 MG TABLET PO PRN (21:44)
[2021-05-13] MEDS: busPIRone 5 MG TABLET PO SCH (21:44)
[2021-05-13] MEDS: 0.9 % SODIUM CHLORIDE 10 ML SYRINGE IV SCH (22:01)
[2021-05-13] MEDS: HYDROmorphone 1 MG/ML SYRINGE IV PRN (22:36)
[2021-05-14] MEDS: HYDROmorphone 1 MG/ML SYRINGE IV PRN (00:52)
[2021-05-14] MEDS: 0.9 % SODIUM CHLORIDE 1,000 ML IV SCH ×5 (00:53→21:35)
[2021-05-14] MEDS: 0.9 % SODIUM CHLORIDE 10 ML SYRINGE IV SCH ×3 (04:11→20:18)
[2021-05-14 06:47] LABS: Hematocrit 26.5 % (36.0-48.0); Hemoglobin 7.5 g/dL (12.0-15.0); Mean Cell Volume 67.8 fL (80.0-100.0); Mean Corpuscular HGB Conc 28.3 g/dL (31.0-36.0); Mean Platelet Volume 10.3 fL (7.4-10.4); Platelet Count 399 K/mcL (140-440); RBC 3.91 M/mcL (4.00-5.20); Red Cell Distribution Width 23.3 % (11.5-14.5); WBC 9.9 K/mcL (4.5-11.0)
[2021-05-14 07:10] LABS: ALT/SGPT 18 U/L (<40); AST/SGOT 16 U/L (<32); Albumin 2.5 gm/dL (3.2-5.2); Albumin/Globulin Ratio 0.9 (1.0-2.3); Alkaline Phosphatase 78 U/L (39-117); Bilirubin,Direct < 0.2 mg/dL (0-0.3); Bilirubin,Total 0.2 mg/dL (0.1-1.0); Blood Urea Nitrogen 9 mg/dL (8-23); Calcium 9.3 mg/dL (8.6-10.4); Carbon Dioxide 26 mmol/L (22-30); Chloride 98 mmol/L (96-108); Globulin 2.7 gm/dL (2.2-3.7); Glomerular Filtration Rate 93; Glucose 93 mg/dL (70-105); Lactate Dehydrogenase 124 U/L (135-225); Phosphorous 2.8 mg/dL (2.5-4.5); Triglycerides 85 mg/dL (<150); Uric Acid 3.5 mg/dL (2.5-8.0)
[2021-05-14] MEDS: PANTOPRAZOLE 40 MG TABLET PO SCH (07:16)
[2021-05-14 07:56] LABS: Anisocytosis 3+ (None Seen); Band Neutrophils % 2 % (0-10); Eosinophils % (Manual) 1 % (0-7); Hypochromasia 2+ (None Seen); Lymphocytes % 12 % (15-49); Microcytosis 2+ (None Seen); Monocytes % (Manual) 6 % (1-12); Ovalocytes 1+ (None Seen); Platelet Estimate NORMAL (Normal); Poikilocytosis 1+ (None Seen); RBC Morphology ABNORMAL (Normal); Segmented Neutrophils % 79 % (38-78)
[2021-05-14] MEDS: SERTRALINE 50 MG TABLET PO SCH (08:20)
[2021-05-14] MEDS: HYDROCHLOROTHIAZIDE 25 MG TABLET PO SCH (08:20)
[2021-05-14] MEDS: busPIRone 5 MG TABLET PO SCH ×2 (08:20→21:35)
[2021-05-14] MEDS: LOSARTAN 50 MG TABLET PO SCH (08:20)
[2021-05-14] MEDS ORDERED: WARFARIN 5 MG TABLET PO SCH (09:00)
[2021-05-14] MEDS: ACETAMINOPHEN 650 MG/65 ML BAG IV SCH ×2 (10:33→20:05)
[2021-05-14] MEDS: SOTALOL 80 MG TABLET PO SCH ×2 (11:30→21:35)
[2021-05-14] MEDS ORDERED: MAGNESIUM SULFATE 4 GM/100 ML BAG IV ONE (14:51)
--- NOTE | 2021-05-14 15:05 | General Surgery Progress Note ---
SUBJECTIVE Subjective Patient information: Note initiated : 05/14/21 at 2:59 pm Service Date, if different from initiated Date: [] Patient: Annie Gomez 75 y/o F admitted on 05/13/21 for constipation. Chief Complaint: [] Principal diagnosis: Intra-abdominal abscess Interval history: Patient states that she feels better. The large pelvic abscess was drained out last evening. Specimen was sent for culture and sensitivity. White blood count 9.9, hemoglobin 7.5, hematocrit 26.5 potassium 3.5, magnesium 1.3. BUN and creatinine are normal Constitutional Vitals: Vital Signs Temp Pulse Resp BP Pulse Ox 98.8 F 65 14 136/72 95 05/14/21 11:55 05/14/21 11:55 05/14/21 11:55 05/14/21 11:55 05/14/21 11:55 Period Temp Pulse Resp BP Sys/Cuevas Pulse Ox Last 24 Hr 97.5 F-98.8 F 55-73 14-18 105-145/58-74 93-99 Intake and Output 05/14/21 05/14/21 05/14/21 05:59 13:59 21:59 Intake Total 1600 65 Output Total 718 0 Balance 882 65 Intake & Output: Intake & Output 05/14/21 05/14/21 05/14/21 05:59 13:59 21:59 Intake Total 1600 65 Output Total 718 0 Balance 882 65 Intake: IV 1000 65 Sodium Chloride 0.9% 1,000 ml @ 1000 100 mls/hr IV .Q10H [facility] Rx#: [id number] Oral 600 Output: Drainage 18 0 Right Lateral Buttock 18 0 Void Amount 700 Other: Urine Appearance Clear Urine Color Dark Yellow Urine Odor Strong Head Head exam: Present atraumatic, normal inspection and normocephalic Eye Eye exam: Present EOMI and normal appearance Pupils: Present PERRL ENT ENT exam: Present mucous membranes moist, normal exam and normal oropharynx Neck Neck exam: Present full ROM and normal inspection; Absent tenderness Respiratory Respiratory exam: Present normal respiratory exam and CTAB Cardiovascular Cardiovascular exam: Present normal rate and rhythm, RRR, +S1 and +S2; Absent JVD GI/Abdominal GI/Abdominal exam: Present normal bowel sounds, distended and tenderness (Mild tenderness in hypogastrium and right lower quadrant) Extremities Exam Extremities exam: Present full ROM, normal inspection, pedal edema (Pedal edema is improved) and Foot pink and warm Neurological Exam Neurological exam: Present alert, normal gait and oriented X3 Psychiatric Psychiatric exam: Present depressed Skin Skin exam: Present normal color and warm A/P Assessment and plan (1) Abscess of abdominal cavity: Status: Acute (2) Adenocarcinoma of cecum: Status: Acute (3) Obstructive sleep apnea: Status: Acute (4) Atrial fibrillation: Status: Chronic Qualifiers: Atrial fibrillation type: longstanding persistent Qualified Code(s): I48.11 - Longstanding persistent atrial fibrillation (5) GERD (gastroesophageal reflux disease): Status: Chronic Qualifiers: Esophagitis presence: esophagitis presence not specified Qualified Code(s): K21.9 - Gastro-esophageal reflux disease without esophagitis Narrative A/P Narrative: Continue IV antibiotics Follow-up CT in [address] in 48 hours Time Spent With Patient Time: Total time spent is greater than 50% in coordination of care (as documented) at patient's floor/unit and/or counseling patient:
[2021-05-14] MEDS: PIPERACILLIN SODIUM/TAZOBACTAM 3.375 GM in DEXTROSE 5% IN WATER 50 ML IV SCH ×2 (15:44→19:25)
[2021-05-14] MEDS: NYSTATIN 500,000 UNITS/5 ML ORAL.SUSP SSP SCH (20:24)
[2021-05-14] MEDS: traZODone HCL 50 MG TABLET PO PRN (21:35)
[2021-05-15] MEDS: PIPERACILLIN SODIUM/TAZOBACTAM 3.375 GM in DEXTROSE 5% IN WATER 50 ML IV SCH ×5 (00:50→23:30)
[2021-05-15] MEDS: ACETAMINOPHEN 650 MG/65 ML BAG IV SCH ×4 (01:25→18:07)
[2021-05-15] MEDS: 0.9 % SODIUM CHLORIDE 10 ML SYRINGE IV SCH ×3 (05:06→20:23)
[2021-05-15] MEDS: PANTOPRAZOLE 40 MG TABLET PO SCH (06:58)
[2021-05-15 08:03] LABS: Basophils # (Auto) 0.02 K/mcL (0.00-0.20); Basophils % (Auto) 0.2 % (0.0-2.0); Eosinophils # (Auto) 0.13 K/mcL (0.00-0.70); Eosinophils % (Auto) 1.6 % (0.0-7.0); Hematocrit 27.8 % (36.0-48.0); Hemoglobin 7.8 g/dL (12.0-15.0); Lymphocytes # (Auto) 0.75 K/mcL (1.50-4.80); Lymphocytes % (Auto) 9.2 % (15.0-49.0); Mean Cell Volume 68.3 fL (80.0-100.0); Mean Corpuscular HGB Conc 28.1 g/dL (31.0-36.0); Mean Platelet Volume 9.4 fL (7.4-10.4); Monocytes # (Auto) 0.64 K/mcL (0.10-0.90); Monocytes % (Auto) 7.8 % (1.0-12.0); Neutrophils % (Auto) 81.2 % (38.0-78.0); Platelet Count 372 K/mcL (140-440); RBC 4.07 M/mcL (4.00-5.20); Red Cell Distribution Width 23.2 % (11.5-14.5); WBC 8.2 K/mcL (4.5-11.0)
[2021-05-15] MEDS: 0.9 % SODIUM CHLORIDE 1,000 ML IV SCH ×2 (08:07→15:09)
[2021-05-15 08:09] LABS: ALT/SGPT 17 U/L (<40); AST/SGOT 17 U/L (<32); Albumin 2.2 gm/dL (3.2-5.2); Albumin/Globulin Ratio 0.7 (1.0-2.3); Alkaline Phosphatase 79 U/L (39-117); Bilirubin,Direct < 0.2 mg/dL (0-0.3); Bilirubin,Total 0.2 mg/dL (0.1-1.0); Blood Urea Nitrogen 8 mg/dL (8-23); Calcium 9.2 mg/dL (8.6-10.4); Carbon Dioxide 24 mmol/L (22-30); Chloride 101 mmol/L (96-108); Globulin 3.3 gm/dL (2.2-3.7); Glomerular Filtration Rate 87; Glucose 101 mg/dL (70-105); Lactate Dehydrogenase 129 U/L (135-225); Phosphorous 2.9 mg/dL (2.5-4.5); Triglycerides 78 mg/dL (<150); Uric Acid 2.6 mg/dL (2.5-8.0)
[2021-05-15] MEDS: NYSTATIN 500,000 UNITS/5 ML ORAL.SUSP SSP SCH ×3 (08:54→20:22)
[2021-05-15] MEDS: busPIRone 5 MG TABLET PO SCH ×2 (08:55→20:21)
[2021-05-15] MEDS: SOTALOL 80 MG TABLET PO SCH ×2 (08:55→20:22)
[2021-05-15] MEDS: LOSARTAN 50 MG TABLET PO SCH (08:55)
[2021-05-15] MEDS: SERTRALINE 50 MG TABLET PO SCH (08:55)
[2021-05-15] MEDS: HYDROCHLOROTHIAZIDE 25 MG TABLET PO SCH (08:55)
--- NOTE | 2021-05-15 13:58 | General Surgery Progress Note ---
SUBJECTIVE Subjective Patient information: Note initiated : 05/15/21 at 1:53 pm Service Date, if different from initiated Date: [] Patient: Annie Gomez 75 y/o F admitted on 05/13/21 for constipation. Chief Complaint: [] Principal diagnosis: Intra-abdominal abscess Interval history: Patient states that she feels better. She has passed more flatus but has not had a bowel movement. Her white blood count is normal at 8. 2. Her abdomen is much softer with good active bowel sounds. Cultures grew out Streptococcus intermedius which is sensitive to most antibiotics and she is on adequate coverage. Hemoglobin 7.8 and hematocrit 27.8. Potassium 3.4, BUN 8, creatinine 0.6. Constitutional Vitals: Vital Signs Temp Pulse Resp BP Pulse Ox 97.4 F 44 L 16 128/62 98 05/15/21 12:00 05/15/21 12:00 05/15/21 12:00 05/15/21 12:00 05/15/21 12:00 Period Temp Pulse Resp BP Sys/Cuevas Pulse Ox Last 24 Hr 97.4 F-98.8 F 44-74 16-24 114-138/55-64 96-99 Intake and Output 05/14/21 05/15/21 05/15/21 21:59 05:59 13:59 Intake Total 1965 1002 230 Output Total 208 11 0 Balance 1758 991 230 Weight 181 lb 4.8 oz 181 lb 4.8 oz Patient Weight 05/16/21 05:59 Weight 181 lb 4.8 oz Intake & Output: Intake & Output 05/14/21 05/15/21 05/15/21 21:59 05:59 13:59 Intake Total 1965 1002 230 Output Total 208 11 0 Balance 1758 991 230 Weight 181 lb 4.8 oz 181 lb 4.8 oz Intake: IV 1166 852 230 Sodium Chloride 0.9% 1,000 ml @ 1000 638 100 mls/hr IV .Q10H [facility] Rx#: [id number] Zosyn 3.375 gm In Dextrose 5% 100 50 100 in Water 50 ml @ 100 mls/hr IV Q6H [facility] Rx#:[id number] Oral 800 150 Output: Drainage 6 10 0 Right Lateral Buttock 6 10 0 Void Amount 200 # of times incontinent of urine 2 1 Other: Urine Appearance Clear Urine Color Dark Yellow Urine Odor Strong # Voids 1 1 1 Eye Eye exam: Present EOMI and normal appearance Pupils: Present PERRL ENT ENT exam: Present mucous membranes moist, normal exam and normal oropharynx Neck Neck exam: Present full ROM and normal inspection; Absent tenderness Respiratory Respiratory exam: Present normal respiratory exam and CTAB Cardiovascular Cardiovascular exam: Present normal rate and rhythm, RRR, +S1 and +S2; Absent JVD GI/Abdominal GI/Abdominal exam: Present normal bowel sounds and tenderness (Mild tenderness in hypogastrium and right lower quadrant) Additional comments: Abdomen is much less distended. She has good active bowel sounds. There is tenderness in the right lateral aspect of her mid abdomen but tenderness in the lower abdomen is significantly improved. Extremities Exam Extremities exam: Present full ROM, normal inspection, pedal edema (Pedal edema is improved) and Foot pink and warm Neurological Exam Neurological exam: Present alert, normal gait and oriented X3 Psychiatric Psychiatric exam: Present depressed Skin Skin exam: Present normal color and warm A/P Assessment and plan (1) Abscess of abdominal cavity: Status: Acute (2) Adenocarcinoma of cecum: Status: Acute (3) Obstructive sleep apnea: Status: Acute (4) Atrial fibrillation: Status: Chronic Qualifiers: Atrial fibrillation type: longstanding persistent Qualified Code(s): I48.11 - Longstanding persistent atrial fibrillation (5) GERD (gastroesophageal reflux disease): Status: Chronic Qualifiers: Esophagitis presence: esophagitis presence not specified Qualified Code(s): K21.9 - Gastro-esophageal reflux disease without esophagitis Narrative A/P Narrative: CT of abdomen and pelvis with IV contrast in the morning Advance diet to full liquids Continue IV antibiotics Time Spent With Patient Time: Total time spent is greater than 50% in coordination of care (as documented) at patient's floor/unit and/or counseling patient:
[2021-05-15] MEDS: ONDANSETRON 4 MG/2 ML VIAL IV PRN (16:02)
[2021-05-15] MEDS: traZODone HCL 50 MG TABLET PO PRN (20:21)
[2021-05-16] MEDS: NYSTATIN 500,000 UNITS/5 ML ORAL.SUSP SSP SCH ×5 (00:05→20:36)
[2021-05-16] MEDS: ACETAMINOPHEN 650 MG/65 ML BAG IV SCH ×4 (00:05→20:34)
[2021-05-16] MEDS: 0.9 % SODIUM CHLORIDE 1,000 ML IV SCH ×2 (01:01→14:34)
[2021-05-16] MEDS: PIPERACILLIN SODIUM/TAZOBACTAM 3.375 GM in DEXTROSE 5% IN WATER 50 ML IV SCH ×3 (05:45→18:00)
[2021-05-16] MEDS: 0.9 % SODIUM CHLORIDE 10 ML SYRINGE IV SCH ×2 (06:10→14:35)
[2021-05-16] MEDS ORDERED: IOPAMIDOL 100 ML BOTTLE IV ONE (06:37)
[2021-05-16 07:24] LABS: Basophils # (Auto) 0.02 K/mcL (0.00-0.20); Basophils % (Auto) 0.3 % (0.0-2.0); Eosinophils # (Auto) 0.12 K/mcL (0.00-0.70); Eosinophils % (Auto) 1.7 % (0.0-7.0); Hematocrit 26.6 % (36.0-48.0); Hemoglobin 7.5 g/dL (12.0-15.0); Lymphocytes # (Auto) 0.87 K/mcL (1.50-4.80); Lymphocytes % (Auto) 12.1 % (15.0-49.0); Mean Cell Volume 68.2 fL (80.0-100.0); Mean Corpuscular HGB Conc 28.2 g/dL (31.0-36.0); Mean Platelet Volume 10.1 fL (7.4-10.4); Monocytes # (Auto) 0.47 K/mcL (0.10-0.90); Monocytes % (Auto) 6.6 % (1.0-12.0); Neutrophils % (Auto) 79.3 % (38.0-78.0); Platelet Count 412 K/mcL (140-440); Red Cell Distribution Width 23.3 % (11.5-14.5); WBC 7.2 K/mcL (4.5-11.0)
[2021-05-16 08:05] LABS: ALT/SGPT 14 U/L (<40); AST/SGOT 15 U/L (<32); Albumin/Globulin Ratio 0.6 (1.0-2.3); Alkaline Phosphatase 76 U/L (39-117); Bilirubin,Direct < 0.2 mg/dL (0-0.3); Bilirubin,Total < 0.2 mg/dL (0.1-1.0); Blood Urea Nitrogen 6 mg/dL (8-23); Carbon Dioxide 26 mmol/L (22-30); Chloride 103 mmol/L (96-108); Globulin 3.2 gm/dL (2.2-3.7); Glomerular Filtration Rate 87; Glucose 82 mg/dL (70-105); Lactate Dehydrogenase 180 U/L (135-225); Phosphorous 2.6 mg/dL (2.5-4.5); Triglycerides 78 mg/dL (<150)
[2021-05-16] MEDS: PANTOPRAZOLE 40 MG TABLET PO SCH (09:28)
--- NOTE | 2021-05-16 09:32 | Cat Scan Report ---
History: Pelvic abscesses TECHNIQUE: The patient was imaged following injection of intravenous nonionic contrast scanning during the portal venous phase from the diaphragm through the symphysis pubis. Sagittal and coronal reformats were created. The radiation exposure was limited using dose reduction technology. FINDINGS: There is minor atelectasis adjacent to the pleural surface in the posterior basal segments of both lower lobes. In segment six of the right lobe of liver there is a ill-defined mass with peripheral enhancement which measures 1.9 x 2.3 cm. This measures approximately 1.8 x 2.2 cm on the prior CT done on 05/13/21. No new liver lesion has developed. There is mild dilatation of the intrahepatic bile ducts, most apparent in the left lobe. Extrahepatic bile ducts are also dilated. Common hepatic duct measures 1.1 cm and common bile duct tapers to 8 mm. There is no evidence of a stone in the distal duct. The gallbladder surgically absent. Dilatation of the ducts is unchanged. The spleen is normal in size and homogeneous. Small hiatus hernia is present. There is no evidence of mass or inflammation the pancreas. The adrenals are normal. There are cysts in both kidneys, predominantly involving the left kidney. No kidney stone or hydronephrosis are present. The aorta is normal caliber and there is a moderate amount calcified plaque. There are few small lymph nodes in the retroperitoneum which are less than 1 cm in size. The large right. Rectal abscess seen on 05/13/21 has been completely drained. There is a pigtail catheter at the site of the infection. There is no residual pus. There are multiple diverticula in the adjacent distal sigmoid colon but no evidence of acute diverticulitis. There is a residual small abscess beneath the peritoneal surface laterally in the right upper pelvis near the top of the iliac crest. Measures 2.3 x 4.0 cm and contains small bubbles of air. It measured 1.8 x 3.3 cm and the prior exam. Another smaller abscess is seen anterior to the right iliopsoas muscle and the right upper pelvis. It measures 2.2 x 3.1 cm. It previously measured 2.3 x 3.6 cm. No new intra-abdominal or pelvic abscess has developed. There is no ascites or free intraperitoneal air. There is a tiny bubble of air within the urinary bladder. As the patient recently been catheterized? IMPRESSION: Complete resolution of previously seen right perirectal abscess. Persistent small abscesses in the right upper pelvis. One has diminished in size and other has slightly increased in size. Enhancing nodule in the right lobe of the liver. This could be a metastasis or liver abscess. Stable dilatation of the bile ducts. This may be a reservoir effect following a prior cholecystectomy. Stricture at the ampulla is also in the differential. Interpreted and Authenticated by: Cameron Jenkins 05/16/21
[2021-05-16] MEDS: SOTALOL 80 MG TABLET PO SCH ×2 (10:38→20:35)
[2021-05-16] MEDS: busPIRone 5 MG TABLET PO SCH ×2 (10:39→20:35)
[2021-05-16] MEDS: HYDROCHLOROTHIAZIDE 25 MG TABLET PO SCH (10:39)
[2021-05-16] MEDS: LOSARTAN 50 MG TABLET PO SCH (10:40)
[2021-05-16] MEDS: SERTRALINE 50 MG TABLET PO SCH (10:40)
--- NOTE | 2021-05-16 18:12 | General Surgery Progress Note ---
SUBJECTIVE Subjective Patient information: Note initiated : 05/16/21 at 6:08 pm Service Date, if different from initiated Date: [] Patient: Annie Gomez 75 y/o F admitted on 05/13/21 for constipation. Chief Complaint: [] Principal diagnosis: Intra-abdominal abscess Interval history: Patient continues to feel better. She complains of hunger and mild fatigue. CT shows resolution of the retrorectal space abscess with de crease in size of the right-sided iliopsoas and anterior peritoneal abscesses. She has been afebrile. White blood count is 7.2. Her serum potassium is 3 and her BUN and creatinine are normal. Constitutional Vitals: Vital Signs Temp Pulse Resp BP Pulse Ox 98.2 F 54 L 18 130/65 96 05/16/21 16:00 05/16/21 16:00 05/16/21 16:00 05/16/21 16:00 05/16/21 16:00 Period Temp Pulse Resp BP Sys/Cuevas Pulse Ox Last 24 Hr 97.5 F-98.3 F 49-61 18-22 119-141/49-65 96-99 Intake and Output 05/16/21 05/16/21 05/16/21 05:59 13:59 21:59 Intake Total 1415 1165 865 Output Total 1 0 Balance 1414 1165 865 Intake & Output: Intake & Output 05/16/21 05/16/21 05/16/21 05:59 13:59 21:59 Intake Total 1415 1165 865 Output Total 1 0 Balance 1414 1165 865 Intake: IV 1115 1165 65 Sodium Chloride 0.9% 1,000 ml @ 1000 1000 100 mls/hr IV .Q10H [facility] Rx#: [id number] Zosyn 3.375 gm In Dextrose 5% 50 100 in Water 50 ml @ 100 mls/hr IV Q6H [facility] Rx#:[id number] Oral 300 800 Output: Drainage 0 0 Right Lateral Buttock 0 0 # of times incontinent of urine 1 Other: Urine Appearance Clear Urine Color Bright Yellow Urine Odor Strong # Voids 1 1 Head Head exam: Present atraumatic, normal inspection and normocephalic Eye Eye exam: Present EOMI and normal appearance Pupils: Present PERRL ENT ENT exam: Present mucous membranes moist, normal exam and normal oropharynx Neck Neck exam: Present full ROM and normal inspection; Absent tenderness Respiratory Respiratory exam: Present normal respiratory exam and CTAB Cardiovascular Cardiovascular exam: Present normal rate and rhythm, RRR, +S1 and +S2; Absent JVD GI/Abdominal GI/Abdominal exam: Present normal bowel sounds and tenderness (Mild tenderness in hypogastrium and right lower quadrant) Additional comments: Abdomen is much less distended. She has good active bowel sounds. There is tenderness in the right lateral aspect of her mid abdomen but tenderness in the lower abdomen is significantly improved. Extremities Exam Extremities exam: Present full ROM, normal inspection, pedal edema (Pedal edema is improved) and Foot pink and warm Neurological Exam Neurological exam: Present alert, normal gait and oriented X3 Psychiatric Psychiatric exam: Present depressed Skin Skin exam: Present normal color and warm A/P Assessment and plan (1) Abscess of abdominal cavity: Status: Acute (2) Adenocarcinoma of cecum: Status: Acute (3) Obstructive sleep apnea: Status: Acute (4) Atrial fibrillation: Status: Chronic Qualifiers: Atrial fibrillation type: longstanding persistent Qualified Code(s): I48.11 - Longstanding persistent atrial fibrillation (5) GERD (gastroesophageal reflux disease): Status: Chronic Qualifiers: Esophagitis presence: esophagitis presence not specified Qualified Code(s): K21.9 - Gastro-esophageal reflux disease without esophagitis Narrative A/P Narrative: Advance to soft diet Saline lock IV Check PT/INR Possibly restart warfarin tomorrow KCl 40 mEq twice daily Time Spent With Patient Time: Total time spent is greater than 50% in coordination of care (as documented) at patient's floor/unit and/or counseling patient:
[2021-05-16] MEDS: POTASSIUM CHLORIDE 20 MEQ TABLET PO SCH (20:35)
[2021-05-16] MEDS: traZODone HCL 50 MG TABLET PO PRN (20:35)
[2021-05-17] MEDS: 0.9 % SODIUM CHLORIDE 10 ML SYRINGE IV SCH ×4 (00:03→23:07)
[2021-05-17] MEDS: PIPERACILLIN SODIUM/TAZOBACTAM 3.375 GM in DEXTROSE 5% IN WATER 50 ML IV SCH ×4 (00:03→18:07)
[2021-05-17] MEDS: ONDANSETRON 4 MG/2 ML VIAL IV PRN ×2 (00:10→20:41)
[2021-05-17] MEDS: ACETAMINOPHEN 650 MG/65 ML BAG IV SCH ×5 (01:27→23:37)
[2021-05-17 07:05] LABS: Basophils # (Auto) 0.02 K/mcL (0.00-0.20); Basophils % (Auto) 0.4 % (0.0-2.0); Eosinophils # (Auto) 0.15 K/mcL (0.00-0.70); Eosinophils % (Auto) 2.9 % (0.0-7.0); Hematocrit 25.4 % (36.0-48.0); Hemoglobin 7.1 g/dL (12.0-15.0); Lymphocytes % (Auto) 24.9 % (15.0-49.0); Mean Cell Volume 68.8 fL (80.0-100.0); Mean Platelet Volume 9.3 fL (7.4-10.4); Monocytes # (Auto) 0.61 K/mcL (0.10-0.90); Monocytes % (Auto) 11.7 % (1.0-12.0); Neutrophils % (Auto) 60.1 % (38.0-78.0); Platelet Count 376 K/mcL (140-440); RBC 3.69 M/mcL (4.00-5.20); Red Cell Distribution Width 23.4 % (11.5-14.5); WBC 5.2 K/mcL (4.5-11.0)
[2021-05-17 07:37] LABS: ALT/SGPT 11 U/L (<40); AST/SGOT 11 U/L (<32); Albumin 2.1 gm/dL (3.2-5.2); Albumin/Globulin Ratio 0.7 (1.0-2.3); Alkaline Phosphatase 73 U/L (39-117); Bilirubin,Direct < 0.2 mg/dL (0-0.3); Bilirubin,Total < 0.2 mg/dL (0.1-1.0); Blood Urea Nitrogen 5 mg/dL (8-23); Carbon Dioxide 25 mmol/L (22-30); Chloride 103 mmol/L (96-108); Globulin 3.1 gm/dL (2.2-3.7); Glomerular Filtration Rate 93; Glucose 85 mg/dL (70-105); Lactate Dehydrogenase 138 U/L (135-225); Phosphorous 2.4 mg/dL (2.5-4.5); Triglycerides 98 mg/dL (<150); Uric Acid 1.6 mg/dL (2.5-8.0)
[2021-05-17] MEDS: PANTOPRAZOLE 40 MG TABLET PO SCH (07:45)
[2021-05-17] MEDS: NYSTATIN 500,000 UNITS/5 ML ORAL.SUSP SSP SCH ×4 (07:45→22:03)
[2021-05-17] MEDS: POTASSIUM CHLORIDE 20 MEQ TABLET PO SCH ×2 (07:45→17:23)
[2021-05-17] MEDS: SERTRALINE 50 MG TABLET PO SCH (07:45)
[2021-05-17] MEDS: HYDROCHLOROTHIAZIDE 25 MG TABLET PO SCH (07:46)
[2021-05-17] MEDS: busPIRone 5 MG TABLET PO SCH ×2 (07:46→22:02)
[2021-05-17] MEDS: LOSARTAN 50 MG TABLET PO SCH (07:46)
[2021-05-17] MEDS: SOTALOL 80 MG TABLET PO SCH ×2 (07:46→22:02)
[2021-05-17 08:11] LABS: INR 11.3 (0.9-1.1); Prothrombin Time 92.5 sec (11.9-14.5)
[2021-05-17 13:35] LABS: INR 8.9 (0.9-1.1); Prothrombin Time 76.8 sec (11.9-14.5)
[2021-05-17] MEDS ORDERED: MAGNESIUM SULFATE 4 GM/100 ML BAG IV ONE (16:58)
--- NOTE | 2021-05-17 17:08 | General Surgery Progress Note ---
SUBJECTIVE Subjective Patient information: Note initiated : 05/17/21 at 5:01 pm Service Date, if different from initiated Date: [] Patient: Annie Gomez 75 y/o F admitted on 05/13/21 for constipation. Chief Complaint: [] Principal diagnosis: Intra-abdominal abscess Interval history: Patient states that she feels better. She has much less pain. Her pelvic drain has minimal output and is discontinued. She does not have any nausea. White blood count 5.2, hemoglobin 7.1, hematocrit 25.4, potassium 3.3, BUN 5, creatinine 0.5, phosphorus 2.4, magnesium 1.4. Constitutional Vitals: Vital Signs Temp Pulse Resp BP Pulse Ox 97.6 F 59 L 18 137/57 98 05/17/21 16:00 05/17/21 16:00 05/17/21 16:00 05/17/21 16:00 05/17/21 16:00 Period Temp Pulse Resp BP Sys/Cuevas Pulse Ox Last 24 Hr 97.4 F-98.5 F 50-68 16-18 124-159/51-65 92-100 Intake and Output 05/17/21 05/17/21 05/17/21 05:59 13:59 21:59 Intake Total 265 180 400 Output Total 1 0 Balance 264 180 400 Weight 185 lb 1.6 oz Patient Weight 05/18/21 05:59 Weight 185 lb 1.6 oz Intake & Output: Intake & Output 05/17/21 05/17/21 05/17/21 05:59 13:59 21:59 Intake Total 265 180 400 Output Total 1 0 Balance 264 180 400 Weight 185 lb 1.6 oz Intake: IV 165 180 Zosyn 3.375 gm In Dextrose 5% 100 50 in Water 50 ml @ 100 mls/hr IV Q6H [facility] Rx#:[id number] Oral 100 400 Output: Drainage 0 0 Right Lateral Buttock 0 0 # of times incontinent of urine 1 Other: Meal Lunch Percent of Meal Consumed 75% Feeding Ability Independent # Voids 1 1 2 ENT ENT exam: Present mucous membranes moist, normal exam and normal oropharynx Neck Neck exam: Present full ROM and normal inspection; Absent tenderness Respiratory Respiratory exam: Present normal respiratory exam and CTAB Cardiovascular Cardiovascular exam: Present normal rate and rhythm, RRR, +S1 and +S2; Absent JVD GI/Abdominal GI/Abdominal exam: Present normal bowel sounds and tenderness (Mild tenderness in hypogastrium and right lower quadrant) Additional comments: Abdomen is much less distended. She has good active bowel sounds. There is tenderness in the right lateral aspect of her mid abdomen but tenderness in the lower abdomen is resolved Extremities Exam Extremities exam: Present full ROM, normal inspection, pedal edema (Pedal edema is improved) and Foot pink and warm Neurological Exam Neurological exam: Present alert, normal gait and oriented X3 Psychiatric Psychiatric exam: Present depressed Skin Skin exam: Present normal color and warm A/P Assessment and plan (1) Abscess of abdominal cavity: Status: Acute (2) Adenocarcinoma of cecum: Status: Acute (3) Obstructive sleep apnea: Status: Acute (4) Atrial fibrillation: Status: Chronic Qualifiers: Atrial fibrillation type: longstanding persistent Qualified Code(s): I48.11 - Longstanding persistent atrial fibrillation (5) GERD (gastroesophageal reflux disease): Status: Chronic Qualifiers: Esophagitis presence: esophagitis presence not specified Qualified Code(s): K21.9 - Gastro-esophageal reflux disease without esophagitis Narrative A/P Narrative: Discontinue pelvic drain Magnesium rider x1 Potassium phosphate 40 mEq x 1 Ferrous sulfate 325 mg twice daily Vitamin K 10 mg subcu twice daily x3 days or until INR is less than 3 Check PT/INR daily Time Spent With Patient Time: Total time spent is greater than 50% in coordination of care (as documented) at patient's floor/unit and/or counseling patient:
[2021-05-17] MEDS: FERROUS SULFATE 325 MG TABLET PO SCH (17:23)
[2021-05-17] MEDS: PHYTONADIONE 10 MG/ML AMPUL SQ SCH (17:33)
[2021-05-17] MEDS ORDERED: POTASSIUM PHOSPHATE 40 MEQ in DEXTROSE 5% IN WATER 500 ML IV ONE (18:00)
[2021-05-17] MEDS: traZODone HCL 50 MG TABLET PO PRN (23:32)
[2021-05-18] MEDS: PIPERACILLIN SODIUM/TAZOBACTAM 3.375 GM in DEXTROSE 5% IN WATER 50 ML IV SCH ×4 (00:34→17:14)
[2021-05-18 06:57] LABS: Basophils # (Auto) 0.02 K/mcL (0.00-0.20); Basophils % (Auto) 0.3 % (0.0-2.0); Eosinophils # (Auto) 0.23 K/mcL (0.00-0.70); Eosinophils % (Auto) 3.9 % (0.0-7.0); Hematocrit 26.6 % (36.0-48.0); Hemoglobin 7.6 g/dL (12.0-15.0); Lymphocytes # (Auto) 0.84 K/mcL (1.50-4.80); Lymphocytes % (Auto) 14.4 % (15.0-49.0); Mean Cell Volume 66.8 fL (80.0-100.0); Mean Corpuscular HGB Conc 28.6 g/dL (31.0-36.0); Mean Platelet Volume 9.6 fL (7.4-10.4); Monocytes # (Auto) 0.52 K/mcL (0.10-0.90); Monocytes % (Auto) 8.9 % (1.0-12.0); Neutrophils % (Auto) 72.5 % (38.0-78.0); Platelet Count 430 K/mcL (140-440); RBC 3.98 M/mcL (4.00-5.20); Red Cell Distribution Width 23.3 % (11.5-14.5); WBC 5.8 K/mcL (4.5-11.0)
[2021-05-18 07:16] LABS: ALT/SGPT 11 U/L (<40); AST/SGOT 11 U/L (<32); Albumin 2.2 gm/dL (3.2-5.2); Albumin/Globulin Ratio 0.7 (1.0-2.3); Alkaline Phosphatase 72 U/L (39-117); Bilirubin,Direct < 0.2 mg/dL (0-0.3); Bilirubin,Total < 0.2 mg/dL (0.1-1.0); Blood Urea Nitrogen 6 mg/dL (8-23); Calcium 8.6 mg/dL (8.6-10.4); Carbon Dioxide 29 mmol/L (22-30); Chloride 100 mmol/L (96-108); Globulin 3.1 gm/dL (2.2-3.7); Glomerular Filtration Rate 93; Glucose 165 mg/dL (70-105); Lactate Dehydrogenase 120 U/L (135-225); Phosphorous 3.1 mg/dL (2.5-4.5); Triglycerides 112 mg/dL (<150); Uric Acid 1.5 mg/dL (2.5-8.0)
[2021-05-18] MEDS: ACETAMINOPHEN 650 MG/65 ML BAG IV SCH ×4 (07:31→23:59)
[2021-05-18] MEDS: 0.9 % SODIUM CHLORIDE 10 ML SYRINGE IV SCH ×3 (07:39→21:15)
[2021-05-18 07:45] LABS: INR 8.5 (0.9-1.1); Prothrombin Time 73.8 sec (11.9-14.5)
[2021-05-18] MEDS: PANTOPRAZOLE 40 MG TABLET PO SCH (09:08)
[2021-05-18] MEDS: ONDANSETRON 4 MG/2 ML VIAL IV PRN (10:02)
[2021-05-18] MEDS: FERROUS SULFATE 325 MG TABLET PO SCH ×2 (11:39→16:35)
[2021-05-18] MEDS: POTASSIUM CHLORIDE 20 MEQ TABLET PO SCH ×2 (11:39→16:37)
[2021-05-18] MEDS: SERTRALINE 50 MG TABLET PO SCH (11:44)
[2021-05-18] MEDS: busPIRone 5 MG TABLET PO SCH ×2 (11:45→21:15)
[2021-05-18] MEDS: HYDROCHLOROTHIAZIDE 25 MG TABLET PO SCH (11:46)
[2021-05-18] MEDS: LOSARTAN 50 MG TABLET PO SCH (11:46)
[2021-05-18] MEDS: NYSTATIN 500,000 UNITS/5 ML ORAL.SUSP SSP SCH ×5 (11:48→21:14)
[2021-05-18] MEDS: PHYTONADIONE 10 MG/ML AMPUL SQ SCH ×2 (11:53→21:14)
[2021-05-18] MEDS: SOTALOL 80 MG TABLET PO SCH ×2 (11:59→21:15)
--- NOTE | 2021-05-18 16:53 | General Surgery Progress Note ---
SUBJECTIVE Subjective Patient information: Note initiated : 05/18/21 at 4:50 pm Service Date, if different from initiated Date: [] Patient: Annie Gomez 75 y/o F admitted on 05/13/21 for constipation. Chief Complaint: [] Principal diagnosis: Intra-abdominal abscess Interval history: Patient is feeling better. She denies pelvic pain. She still has some discomfort and her right lower quadrant and her lateral flank on the right side. White blood count is 9.8 and hemoglobin is 7.6. BUN/creatinine and potassium of 9. Her PT and INR are still significantly elevated in spite of vitamin K. We will continue for 24 hours and recheck levels tomorrow. Constitutional Vitals: Vital Signs Temp Pulse Resp BP Pulse Ox 97.7 F 64 14 136/65 96 05/18/21 15:58 05/18/21 15:58 05/18/21 15:58 05/18/21 15:58 05/18/21 15:58 Period Temp Pulse Resp BP Sys/Cuevas Pulse Ox Last 24 Hr 97.7 F-98.7 F 56-70 14-22 104-142/52-70 96-99 Intake and Output 05/18/21 05/18/21 05/18/21 05:59 13:59 21:59 Intake Total 1224.0909 1830 400 Output Total 300 750 Balance 924.0909 1080 400 Intake & Output: Intake & Output 05/18/21 05/18/21 05/18/21 05:59 13:59 21:59 Intake Total 1224.0909 1830 400 Output Total 300 750 Balance 924.0909 1080 400 Intake: IV 724.0909 230 Zosyn 3.375 gm In Dextrose 5% 50 100 in Water 50 ml @ 100 mls/hr IV Q6H [facility] Rx#:[id number] Potassium Phosphate 40 Meq In 509.0909 Dextrose 5% in Water 500 ml @ 127.273 mls/hr IV ONCE ONE Rx#: [id number] Oral 500 1600 400 Output: Void Amount 300 750 Other: Meal Lunch Percent of Meal Consumed 100% Feeding Ability Independent Urine Appearance Clear Clear Urine Color Bright Yellow Pale Urine Odor Normal Normal Stool Size Smear Moderate Stool Color Yellow Brown Stool Consistency Soft Formed Formed # Bowel Movements 1 Head Head exam: Present atraumatic, normal inspection and normocephalic Eye Eye exam: Present EOMI and normal appearance Pupils: Present PERRL Neck Neck exam: Present full ROM and normal inspection; Absent tenderness Respiratory Respiratory exam: Present normal respiratory exam and CTAB Cardiovascular Cardiovascular exam: Present normal rate and rhythm, RRR, +S1 and +S2; Absent JVD GI/Abdominal GI/Abdominal exam: Present normal bowel sounds and tenderness (Mild tenderness in hypogastrium and right lower quadrant) Additional comments: Abdomen is much less distended. She has good active bowel sounds. There is tenderness in the right lateral aspect of her mid abdomen but tenderness in the lower abdomen is resolved Extremities Exam Extremities exam: Present full ROM, normal inspection, pedal edema (Pedal edema is improved) and Foot pink and warm Neurological Exam Neurological exam: Present alert, normal gait and oriented X3 Psychiatric Psychiatric exam: Present depressed Skin Skin exam: Present normal color and warm A/P Assessment and plan (1) Abscess of abdominal cavity: Status: Acute (2) Adenocarcinoma of cecum: Status: Acute (3) Obstructive sleep apnea: Status: Acute Narrative A/P Narrative: Patient will be continued on present IV therapy Plans will be made for CT on 20 May 2021 Time Spent With Patient Time: Total time spent is greater than 50% in coordination of care (as documented) at patient's floor/unit and/or counseling patient:
[2021-05-19] MEDS: ACETAMINOPHEN 650 MG/65 ML BAG IV SCH (05:28)
[2021-05-19] MEDS: PIPERACILLIN SODIUM/TAZOBACTAM 3.375 GM in DEXTROSE 5% IN WATER 50 ML IV SCH ×4 (05:28→19:19)
[2021-05-19 06:11] LABS: Basophils # (Auto) 0.02 K/mcL (0.00-0.20); Basophils % (Auto) 0.5 % (0.0-2.0); Eosinophils % (Auto) 4.8 % (0.0-7.0); Hematocrit 27.4 % (36.0-48.0); Hemoglobin 7.7 g/dL (12.0-15.0); Lymphocytes # (Auto) 1.13 K/mcL (1.50-4.80); Mean Cell Volume 67.7 fL (80.0-100.0); Mean Corpuscular HGB Conc 28.1 g/dL (31.0-36.0); Mean Platelet Volume 9.6 fL (7.4-10.4); Monocytes % (Auto) 11.9 % (1.0-12.0); Neutrophils % (Auto) 55.8 % (38.0-78.0); Platelet Count 410 K/mcL (140-440); RBC 4.05 M/mcL (4.00-5.20); Red Cell Distribution Width 23.8 % (11.5-14.5); WBC 4.2 K/mcL (4.5-11.0)
[2021-05-19 06:37] LABS: ALT/SGPT 10 U/L (<40); AST/SGOT 13 U/L (<32); Albumin 2.4 gm/dL (3.2-5.2); Albumin/Globulin Ratio 0.9 (1.0-2.3); Alkaline Phosphatase 73 U/L (39-117); Bilirubin,Direct < 0.2 mg/dL (0-0.3); Bilirubin,Total 0.2 mg/dL (0.1-1.0); Blood Urea Nitrogen 7 mg/dL (8-23); Calcium 8.9 mg/dL (8.6-10.4); Carbon Dioxide 29 mmol/L (22-30); Chloride 104 mmol/L (96-108); Globulin 2.7 gm/dL (2.2-3.7); Glomerular Filtration Rate 93; Glucose 88 mg/dL (70-105); Lactate Dehydrogenase 125 U/L (135-225); Triglycerides 114 mg/dL (<150); Uric Acid 1.6 mg/dL (2.5-8.0)
[2021-05-19 06:46] LABS: INR 2.6 (0.9-1.1); Prothrombin Time 28.8 sec (11.9-14.5)
[2021-05-19] MEDS: PANTOPRAZOLE 40 MG TABLET PO SCH (09:58)
[2021-05-19] MEDS: 0.9 % SODIUM CHLORIDE 10 ML SYRINGE IV SCH ×2 (09:59→13:54)
[2021-05-19] MEDS: FERROUS SULFATE 325 MG TABLET PO SCH (10:15)
[2021-05-19] MEDS: POTASSIUM CHLORIDE 20 MEQ TABLET PO SCH (10:15)
[2021-05-19] MEDS: SERTRALINE 50 MG TABLET PO SCH (10:16)
[2021-05-19] MEDS: SOTALOL 80 MG TABLET PO SCH ×2 (10:17→21:20)
[2021-05-19] MEDS: busPIRone 5 MG TABLET PO SCH ×2 (10:18→21:20)
[2021-05-19] MEDS: HYDROCHLOROTHIAZIDE 25 MG TABLET PO SCH (10:18)
[2021-05-19] MEDS: LOSARTAN 50 MG TABLET PO SCH (10:18)
[2021-05-19] MEDS ORDERED: ACETAMINOPHEN 325 MG TABLET PO SCH (12:00)
[2021-05-19] MEDS: ACETAMINOPHEN 325 MG TABLET PO SCH (12:10)
[2021-05-19] MEDS: PHYTONADIONE 10 MG/ML AMPUL SQ SCH ×2 (12:10→21:21)
[2021-05-19] MEDS: NYSTATIN 500,000 UNITS/5 ML ORAL.SUSP SSP SCH ×3 (12:17→21:20)
[2021-05-19] MEDS ORDERED: MAGNESIUM SULFATE 4 GM/100 ML BAG IV ONE (14:23)
[2021-05-19] MEDS ORDERED: POTASSIUM PHOSPHATE 40 MEQ in DEXTROSE 5% IN WATER 500 ML IV ONE (14:23)
--- NOTE | 2021-05-19 14:23 | General Surgery Progress Note ---
SUBJECTIVE Subjective Patient information: Note initiated : 05/19/21 at 2:17 pm Service Date, if different from initiated Date: [] Patient: Annie Gomez 75 y/o F admitted on 05/13/21 for constipation. Chief Complaint: [] Principal diagnosis: Intra-abdominal abscess Interval history: Patient states that she feels much better. She has less pain in her right lateral abdomen and flank. She denies nausea. She is having r egular bowel movements. She has been afebrile. White blood count 4.2, hemoglobin 7.7, hematocrit 27.4. PT is 28.8, INR 2.6, BUN 7, creatinine 0.5, phosphorus 2, magnesium 1.5. Constitutional Vitals: Vital Signs Temp Pulse Resp BP Pulse Ox 97.3 F 72 18 151/79 98 05/19/21 12:00 05/19/21 12:00 05/19/21 12:00 05/19/21 12:00 05/19/21 12:00 Period Temp Pulse Resp BP Sys/Cuevas Pulse Ox Last 24 Hr 97.1 F-98.4 F 55-72 12-18 133-158/58-79 92-98 Intake and Output 05/19/21 05/19/21 05/19/21 05:59 13:59 21:59 Intake Total 415 165 Output Total 350 200 Balance 65 -35 Intake & Output: Intake & Output 05/19/21 05/19/21 05/19/21 05:59 13:59 21:59 Intake Total 415 165 Output Total 350 200 Balance 65 -35 Intake: IV 115 165 Zosyn 3.375 gm In Dextrose 5% 50 100 in Water 50 ml @ 100 mls/hr IV Q6H [facility] Rx#:[id number] Oral 300 Output: Void Amount 350 200 Other: Urine Appearance Clear Urine Color Bright Yellow Pale Pale Urine Odor Normal Normal Stool Size Moderate Stool Color Brown Stool Consistency Watery # Voids 1 1 1 # Bowel Movements 0 Head Head exam: Present atraumatic, normal inspection and normocephalic Eye Eye exam: Present EOMI and normal appearance Pupils: Present PERRL ENT ENT exam: Present mucous membranes moist, normal exam and normal oropharynx Neck Neck exam: Present full ROM and normal inspection; Absent tenderness Respiratory Respiratory exam: Present normal respiratory exam and CTAB Cardiovascular Cardiovascular exam: Present normal rate and rhythm, RRR, +S1 and +S2; Absent JVD GI/Abdominal GI/Abdominal exam: Present normal bowel sounds and tenderness (Mild tenderness in hypogastrium and right lower quadrant) Additional comments: Abdomen is much less distended. She has good active bowel sounds. There is tenderness in the right lateral aspect of her mid abdomen but tenderness in the lower abdomen is resolved Extremities Exam Extremities exam: Present full ROM, normal inspection, pedal edema (Pedal edema is improved) and Foot pink and warm Back Exam Back exam: Present normal inspection; Absent CVA tenderness (L), CVA tenderness (R), paraspinal tenderness and tenderness Neurological Exam Neurological exam: Present alert, normal gait, oriented X3 and reflexes normal Psychiatric Psychiatric exam: Present depressed Skin Skin exam: Present normal color and warm A/P Assessment and plan (1) Abscess of abdominal cavity: Status: Acute (2) Adenocarcinoma of cecum: Status: Acute (3) Obstructive sleep apnea: Status: Acute Narrative A/P Narrative: Potassium phosphate 40 mEq x 1 Magnesium rider [address] of abdomen and pelvis in the a.m. Time Spent With Patient Time: Total time spent is greater than 50% in coordination of care (as documented) at patient's floor/unit and/or counseling patient:
[2021-05-19] MEDS: ONDANSETRON 4 MG/2 ML VIAL IV PRN (14:25)
[2021-05-20] MEDS: PIPERACILLIN SODIUM/TAZOBACTAM 3.375 GM in DEXTROSE 5% IN WATER 50 ML IV SCH ×3 (00:35→12:24)
[2021-05-20] MEDS: ACETAMINOPHEN 325 MG TABLET PO SCH ×4 (00:36→12:01)
[2021-05-20] MEDS: 0.9 % SODIUM CHLORIDE 10 ML SYRINGE IV SCH ×3 (00:36→14:09)
[2021-05-20] MEDS: NYSTATIN 500,000 UNITS/5 ML ORAL.SUSP SSP SCH ×3 (06:22→13:41)
[2021-05-20] MEDS: FERROUS SULFATE 325 MG TABLET PO SCH ×2 (06:23→11:58)
[2021-05-20] MEDS: POTASSIUM CHLORIDE 20 MEQ TABLET PO SCH ×3 (06:23→13:54)
[2021-05-20 06:39] LABS: Basophils # (Auto) 0.02 K/mcL (0.00-0.20); Basophils % (Auto) 0.4 % (0.0-2.0); Eosinophils # (Auto) 0.15 K/mcL (0.00-0.70); Eosinophils % (Auto) 2.9 % (0.0-7.0); Hematocrit 28.4 % (36.0-48.0); Hemoglobin 8.1 g/dL (12.0-15.0); Lymphocytes # (Auto) 1.21 K/mcL (1.50-4.80); Lymphocytes % (Auto) 23.7 % (15.0-49.0); Mean Cell Volume 67.6 fL (80.0-100.0); Mean Corpuscular HGB Conc 28.5 g/dL (31.0-36.0); Mean Platelet Volume 9.3 fL (7.4-10.4); Monocytes # (Auto) 0.52 K/mcL (0.10-0.90); Monocytes % (Auto) 10.2 % (1.0-12.0); Neutrophils % (Auto) 62.8 % (38.0-78.0); Platelet Count 452 K/mcL (140-440); Red Cell Distribution Width 24.3 % (11.5-14.5); WBC 5.1 K/mcL (4.5-11.0)
[2021-05-20 06:44] LABS: INR 1.3 (0.9-1.1); Prothrombin Time 16.4 sec (11.9-14.5)
[2021-05-20 07:03] LABS: ALT/SGPT 10 U/L (<40); AST/SGOT 14 U/L (<32); Albumin 2.7 gm/dL (3.2-5.2); Albumin/Globulin Ratio 0.9 (1.0-2.3); Alkaline Phosphatase 71 U/L (39-117); Bilirubin,Direct < 0.2 mg/dL (0-0.3); Bilirubin,Total 0.2 mg/dL (0.1-1.0); Blood Urea Nitrogen 6 mg/dL (8-23); Calcium 9.3 mg/dL (8.6-10.4); Carbon Dioxide 28 mmol/L (22-30); Chloride 102 mmol/L (96-108); Glomerular Filtration Rate 87; Glucose 89 mg/dL (70-105); Lactate Dehydrogenase 185 U/L (135-225); Phosphorous 2.9 mg/dL (2.5-4.5); Triglycerides 131 mg/dL (<150); Uric Acid 1.6 mg/dL (2.5-8.0)
[2021-05-20] MEDS: PANTOPRAZOLE 40 MG TABLET PO SCH (07:24)
[2021-05-20] MEDS ORDERED: IOPAMIDOL 100 ML BOTTLE IV ONE (07:51)
--- NOTE | 2021-05-20 08:40 | Cat Scan Report ---
History: Follow-up intra-abdominal abscesses, following prior resection of a tumor in the cecum TECHNIQUE: The patient was imaged following injection of intravenous contrast scanning during the portal venous phase at 2.5 mm intervals from the diaphragm through the symphysis pubis. Sagittal and coronal reformats were created. The radiation exposure was limited using dose reduction technology. FINDINGS: The lung bases are now clear. Previously seen atelectasis has resolved. There is a stable mass with peripheral enhancement laterally in the right lobe of liver. Measures approximately 2 x 2.5 cm in size. This has not enlarged since 03/30/21 could be metastasis or liver abscess. There is chronic stable dilatation of the intra and extrahepatic bile ducts, following prior cholecystectomy. Common hepatic duct measures 8 mm and common bile duct is 6 mm. There is no stone in the distal duct. The spleen is normal in size and homogeneous. No abnormality is present in the pancreas or adrenals. Simple cysts are present in both kidneys. There is a staghorn calculus in the lower portion left kidney. There is no hydronephrosis or inflammation. No stone is present in the right kidney. Moderate amount calcified plaque is present in the aorta and iliac arteries. The aorta is normal in caliber. There are postsurgical changes following resection of the cecum and proximal ascending colon. There is some stranding of the mesenteric and omental fat in the right side of the abdomen due to the recent surgery. Lateral to the ascending colon there is a residual small abscess pocket which measures 1.3 x 3.5 cm. It contains an air-fluid level. It previously measured 2.3 x 4.0 cm on 05/16/21. Anterior to the right iliopsoas muscle, and the right upper pelvis there is another small abscess collection which contains a small bubble of air. It measures 1.6 x 2.8 cm. It previously measured 2.2 x 3.1 cm. The drainage catheter previously seen adjacent to the right side of the rectum has been removed. A recurrent small abscess has developed at this site, which measures 2.0 x 2.0 cm. No new abscess has formed. There is no bowel obstruction or ascites. No free intraperitoneal air is present. Urinary bladder is decompressed. IMPRESSION: Three small abscesses in the right side of the pelvis. The one in the perirectal region has recurred following removal of the catheter. The other two have diminished in size. Interpreted and Authenticated by: Cameron Jenkins 05/20/21
[2021-05-20] MEDS: SERTRALINE 50 MG TABLET PO SCH (11:56)
[2021-05-20] MEDS: LOSARTAN 50 MG TABLET PO SCH (11:58)
[2021-05-20] MEDS: HYDROCHLOROTHIAZIDE 25 MG TABLET PO SCH (11:58)
[2021-05-20] MEDS: SOTALOL 80 MG TABLET PO SCH (11:59)
[2021-05-20] MEDS: busPIRone 5 MG TABLET PO SCH (11:59)
[2021-05-20] MEDS: ONDANSETRON 4 MG/2 ML VIAL IV PRN (12:11)
--- NOTE | 2021-05-20 12:27 | Discharge Summary ---
Discharge Provider Provider Patient information: Note initiated : 05/20/21 at 12:15 pm Service Date, if different from initiated Date: [] Patient: Annie Gomez 75 y/o F admitted on 05/13/21 for constipation. Chief Complaint: [] Date of admission: 05/13/21 15:26 Primary care physician: GERALDINE Damon Consults: 05/13/21 Consult to Physician [CONS] Stat Comment: Consulting Provider: Alonso Walsh Reason For Exam: Physician to Consult COURSE Hospital Course Hospital course: 75-year-old female who is status post right colectomy with ileal colostomy on 17 Apr 2021. 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 She presented to the emergency room with a 5- day history of abdominal pain and pain with bowel movements. She was not passing any fecal material at all at the time that she arrived in the emergency room. CT of the abdomen and pelvis showed a large abscess of the pelvis and the retrorectal space measuring 8 cm and 2 smaller abscesses 1 in the retrorectal space measuring 2.2 x 3.1 cm and another along the right iliopsoas measuring 2.3 x 3.5 cm. There is also a questionable lesion in the lateral liver that has been stable throughout this time. This is not discussed with the patient. The retrorectal abscess was drained with a complete resolution of the abscess. Cultures grew out Streptococcus intermedius. Patient has been treated with IV antibiotics and the retrorectal lesion has decreased to 1.6 x 2.8 and the iliopsoas lesion has decreased to 1.3 x 3.5. Patient now is clinically stable. She is having regular bowel movements without difficulty. She is tolerating diet without difficulty. The patient had an elevated PT/INR on admission with the INR being 5.1. Inorw3.7 however 2 days later it was up to 11.3. PT at that time was 92.5. It was felt that her readings were out of line with the history of not having had any Coumadin for 6days. She was started on vitamin K 10 mg twice daily and her PT/INR decreased down to 2.6 and 28 and now it is INR 1.3 and PT 16.4. The reason for this change cannot be explained. She can restart on her Coumadin but she will need to have close follow-up with her primary care provider to make sure that these severe changes do not recur. Discharge diagnosis: Abscess of retrorectal space Secondary discharge diagnosis: Abscess of right upper abdominal cavity and right iliopsoas area Abnormal clotting parameters secondary to Coumadin therapy Chronic iron deficiency anemia Right hepatic lesion suspicious for small abscess or metastatic disease history of atrial fibrillation GERD Hypertension Prior history of right cecal carcinoma Reason for admission: Pelvic abscess and upper abdominal peritoneal abscess Procedures: Percutaneous drainage of rectal rectal abscess Pertinent studies/significant findings: CT of abdomen and pelvis with contrast x2 Complications: Abnormal elevation of PT and INR Time Spent with Patient Time attestation: Total time spent providing and/or coordinating discharge services: Physical Examination Vital Signs Vital signs: Temp Pulse Resp BP Pulse Ox 98.3 F 67 18 149/72 96 05/20/21 12:00 05/20/21 12:05/20/21 12:00 05/20/21 12:05/20/21 12:00 General physical appearance General physical exam: well developed, no distress, no pain, chronically ill and obese Eyes Eye exam: PERRL, normal ocular movement and pale; negative icteric, deviation and loss of movement ENT ENT exam: no hearing loss and no congestion Head Head exam IM: Present atraumatic, normal inspection and normocephalic Cardiovascular Cardiovascular exam IM: Present normal rate and rhythm, RRR, +S1, +S2 and tachycardia; Absent gallop and JVD Respiratory Respiratory exam: normal expansion, normal respiratory effort and clear to auscultation Abdomen Abdomen: Present tender (Tenderness in lower abdomen and right flank); Absent masses Integumentary Integumentary: Present no rash, no growths and no abnormal pigmentation Neurologic Neurologic: Present normal coordination and normal sensation Musculoskeletal Musculoskeletal: Present normal gait and normal posture Psychiatric Psychiatric: Present oriented to time, oriented to person, oriented to place, speech is normal and memory intact Discharge Plan Patient/Caregiver Discharge Instructions Activity: increase activity as tolerated Diet: Regular Diet Instructions: Ciprofloxacin (By mouth), Metronidazole (By mouth), Acute Abdominal Pain (DC) Activity Restrictions/Additional Instructions: Resume home diet as tolerated. Take all meals up in chair sitting at 90 degrees. Increase activity as tolerated. Continue fall precautions. Return to [facility] on Friday, 05/[address] of your abdomen. Take your attached order with you. Follow-up with Alonso Walsh. Contact the office on Monday 05/21 to schedule Follow-up as needed with Sheila Cardenas. You may shower. Keep dressing dry. Do not scrub dressing. Do not use soaps, creams, or lotions over the dressing. Pat dry. No bathing or soaking in hot tub until released by surgeon. If you need a new dressing, please follow-up with Dr. Carranza office. Take all medication as directed. Your medications were electronically transmitted to [facility]. Take your prescription, insurance cards, and photo ID to car pick up driver your medication. Return to ER for fever, chills, uncontrolled pain, inability to urinate or have a bowel movement, nausea and/or vomiting, swelling, redness, signs of infection, shortness of breath, chest pain, return of symptoms, or other acute symptom This discharge packet is provided to you to help keep you informed about your care. We want to ensure you get everything you need when you go home. You will also be receiving a call from us in a few days to follow up with you and see how you are doing since your discharge. This gives us a chance to listen to any concerns you maybe experiencing since you were discharged or any additional needs you may have, as well as providing us feedback on your care experience. We strive to always provide excellent care and thank you for your feedback and for choosing [facility]. Prescriptions: New ciprofloxacin HCl 500 mg tablet 500 mg PO BID Qty: 30 RF: 0 metronidazole 500 mg tablet 500 mg PO TID Qty: 40 RF: 0 Continued potassium chloride 10 mEq capsule, extended release 10 meq PO DAILY Qty: 90 RF: 3 buspirone 5 mg tablet 5 mg PO BID Qty: 60 RF: 6 hydrocodone-acetaminophen 7.5-325 mg tablet 1 tab PO Q6H PRN (Reason: pain) Qty: 120 RF: 0 losartan-hydrochlorothiazide 100-25 mg tablet 1 tab PO QDAY Qty: 90 RF: 3 nystatin 100,000 unit/mL suspension 6 ml PO QID 10 Days Qty: 240 RF: 0 acetaminophen-codeine 120-12 mg/5 mL solution 5 ml PO Q6H PRN (Reason: pain) Qty: 118 RF: 0 albuterol sulfate [Ventolin HFA] 90 mcg/actuation HFA aerosol inhaler 2 puff INHALATION .COMPLEX PRN (Reason: shortness of breath or wheezing) Qty: 18 RF: 2 warfarin 5 mg tablet See Rx Instructions PO DAILY RF: 0 sertraline 50 mg tablet 50 mg PO DAILY RF: 0 acetaminophen [Tylenol] 325 mg Tablet 650 mg PO Q6HP PRN (Reason: pain) Qty: 60 RF: 0 oxycodone 5 mg Tablet 5 mg PO Q4HP PRN (Reason: Per Pain Protocol) Qty: 5 RF: 0 metoprolol succinate 25 mg tablet extended release 24 hr 25 mg PO DAILY RF: 0 fluticasone propionate 50 mcg/actuation spray,suspension 1 spray INTRANASAL DAILY RF: 0 sotalol 80 mg Tablet 80 mg PO HS RF: 0 sotalol 80 mg Tablet 40 mg PO DAILY RF: 0 Other Ambulatory Orders: CT abdomen pelvis w con (Routine) Timeframe: [id number] Facility: [facility] - Location: Radiology Ordered By: Alonso Walsh Follow Up Plan Follow up with: Alonso Walsh MD [Physician] - 06/05/21 (Call the office to schedule an appointment time could we schedule a CT on ) Sheila Mancera ARNP [Primary Care Provider] - (Primary care provider is to monitor PT/INR and dose warfarin accordingly) Patient Disposition: Home, Self-Care Prognosis: Good Rehab Potential: Good I certify that the patient requires SNF services: Yes Overall status at discharge: patient is progressing back to baseline Discharge Orders: Discharge Order (Routine); Ordered 05/20/21 Ordered By: Alonso Walsh Discharge Comment: Patient stable at d/c, family p/u'd Pending Pending Pending: Resuscitation Status Full Code Diet GI Soft/Transitional Start Jagruti Mehul 17 1501 Acetaminophen (Acetaminophen 325 Mg Tablet) 650 mg PO Q6 KYLE; Protocol Last Admin: 05/20/21 12:01 Dose: 650 mg Documented by: Admin: 05/20/21 05:26 Dose: Not Given Documented by: Admin: 05/20/21 00:41 Dose: Not Given Documented by: Admin: 05/20/21 00:36 Dose: Not Given Documented by: Admin: 05/19/21 12:10 Dose: 650 mg Documented by: JLANNOYE Buspirone HCl (Buspirone 5 Mg Tablet) 5 mg PO BID [facility] Admin: 05/20/21 11:59 Dose: 5 mg Documented by: Admin: 05/19/21 21:20 Dose: 5 mg Documented by: Admin: 05/19/21 10:18 Dose: 5 mg Documented by: Admin: 05/18/21 21:15 Dose: 5 mg Documented by: Admin: 05/18/21 11:45 Dose: 5 mg Documented by: Admin: 05/17/21 22:02 Dose: 5 mg Documented by: Admin: 05/17/21 07:46 Dose: 5 mg Documented by: Admin: 05/16/21 20:35 Dose: 5 mg Documented by: Admin: 05/16/21 10:39 Dose: 5 mg Documented by: Admin: 05/15/21 20:21 Dose: 5 mg Documented by: Admin: 05/15/21 08:55 Dose: 5 mg Documented by: Admin: 05/14/21 21:35 Dose: 5 mg Documented by: Admin: 05/14/21 08:20 Dose: 5 mg Documented by: Admin: 05/13/21 21:44 Dose: 5 mg Documented by: ELVI Ferrous Sulfate ([facility] S[facility]ate 325 Mg Tablet) [facility] 05/20/21 11:58 Dose: 325 mg Documented by: Admin: 05/20/21 06:23 Dose: Not Given Documented by: Admin: 05/19/21 10:15 Dose: 325 mg Documented by: Admin: 05/18/21 16:35 Dose: 325 mg Documented by: Admin: 05/18/21 11:39 Dose: 325 mg Documented by: Admin: 05/17/21 17:23 Dose: 325 mg Documented by: ZENY Hydrochlorothiazide (Hydrochlorothiazide 25 Mg Tablet) 25 mg PO DAILY [facility] Admin: 05/20/21 11:58 Dose: 25 mg Documented by: Admin: 05/19/21 10:18 Dose: 25 mg Documented by: Admin: 05/18/21 11:46 Dose: Not Given Documented by: Admin: 05/17/21 07:46 Dose: 25 mg Documented by: Admin: 05/16/21 10:39 Dose: 25 mg Documented by: Admin: 05/15/21 08:55 Dose: 25 mg Documented by: Admin: 05/14/21 08:20 Dose: 25 mg Documented by: DONTE Hydromorphone HCl (Hydromorphone 1 Mg/Ml Syringe) 1 mg IV Q2HP PRN; Protocol PRN Reason: Per Pain Protocol Last Admin: 05/14/21 00:52 Dose: 1 mg Documented by: Admin: 05/13/21 22:36 Dose: 1 mg Documented by: ELVI Piperacillin Sod/Tazobactam (Sod 3.375 gm/ Dextrose) 50 mls @ 100 mls/hr IV Q6H KYLE; Protocol Last Infusion: 05/20/21 05:55 Dose: 0 mls/hr Documented by: Admin: 05/20/21 05:25 Dose: 100 mls/hr Documented by: Infusion: 05/20/21 01:05 Dose: 0 mls/hr Documented by: Admin: 05/20/21 00:35 Dose: 100 mls/hr Documented by: Infusion: 05/19/21 19:49 Dose: 100 mls/hr Documented by: Admin: 05/19/21 19:19 Dose: 100 mls/hr Documented by: Infusion: 05/19/21 12:40 Dose: 0 mls/hr Documented by: Admin: 05/19/21 12:06 Dose: 100 mls/hr Documented by: Infusion: 05/19/21 06:00 Dose: 0 mls/hr Documented by: Admin: 05/19/21 05:28 Dose: 100 mls/hr Documented by: Infusion: 05/19/21 00:40 Dose: 0 mls/hr Documented by: Admin: 05/19/21 00:00 Dose: 100 mls/hr Documented by: Infusion: 05/18/21 18:38 Dose: 0 mls/hr Documented by: Admin: 05/18/21 17:14 Dose: 100 mls/hr Documented by: Infusion: 05/18/21 12:35 Dose: 0 mls/hr Documented by: Admin: 05/18/21 12:05 Dose: 100 mls/hr Documented by: Infusion: 05/18/21 06:10 Dose: 0 mls/hr Documented by: Admin: 05/18/21 05:38 Dose: 100 mls/hr Documented by: Infusion: 05/18/21 01:33 Dose: 0 mls/hr Documented by: Admin: 05/18/21 00:34 Dose: 100 mls/hr Documented by: Infusion: 05/17/21 18:37 Dose: 100 mls/hr Documented by: Admin: 05/17/21 18:07 Dose: 100 mls/hr Documented by: Infusion: 05/17/21 13:10 Dose: 0 mls/hr Documented by: Admin: 05/17/21 12:39 Dose: 100 mls/hr Documented by: Infusion: 05/17/21 05:19 Dose: 0 mls/hr Documented by: Admin: 05/17/21 04:49 Dose: 100 mls/hr Documented by: Infusion: 05/17/21 00:33 Dose: 0 mls/hr Documented by: Admin: 05/17/21 00:03 Dose: 100 mls/hr Documented by: Infusion: 05/16/21 18:30 Dose: 0 mls/hr Documented by: Admin: 05/16/21 18:00 Dose: 100 mls/hr Documented by: Infusion: 05/16/21 13:25 Dose: 0 mls/hr Documented by: Admin: 05/16/21 12:51 Dose: 100 mls/hr Documented by: Infusion: 05/16/21 06:15 Dose: 100 mls/hr Documented by: Admin: 05/16/21 05:45 Dose: 100 mls/hr Documented by: Infusion: 05/16/21 00:00 Dose: 100 mls/hr Documented by: Admin: 05/15/21 23:30 Dose: 100 mls/hr Documented by: Infusion: 05/15/21 18:27 Dose: 0 mls/hr Documented by: Admin: 05/15/21 17:18 Dose: 100 mls/hr Documented by: Infusion: 05/15/21 13:33 Dose: 0 mls/hr Documented by: Admin: 05/15/21 11:52 Dose: 100 mls/hr Documented by: Infusion: 05/15/21 07:16 Dose: 0 mls/hr Documented by: Admin: 05/15/21 06:00 Dose: 100 mls/hr Documented by: Infusion: 05/15/21 01:20 Dose: 100 mls/hr Documented by: Admin: 05/15/21 00:50 Dose: 100 mls/hr Documented by: Infusion: 05/14/21 20:00 Dose: 100 mls/hr Documented by: Admin: 05/14/21 19:25 Dose: 100 mls/hr Documented by: Infusion: 05/14/21 17:37 Dose: 0 mls/hr Documented by: Admin: 05/14/21 15:44 Dose: 100 mls/hr Documented by: DONTE Losartan Potassium (Losartan 50 Mg Tablet) 100 mg PO DAILY [facility] Admin: 05/20/21 11:58 Dose: 100 mg Documented by: Admin: 05/19/21 10:18 Dose: 100 mg Documented by: Admin: 05/18/21 11:46 Dose: Not Given Documented by: Admin: 05/17/21 07:46 Dose: 100 mg Documented by: Admin: 05/16/21 10:40 Dose: 100 mg Documented by: Admin: 05/15/21 08:55 Dose: 100 mg Documented by: Admin: 05/14/21 08:20 Dose: 100 mg Documented by: DONTE Nystatin (Nystatin 500,000 Units/5 Ml Oral.Susp) 100,000 units SSP QID [facility] Admin: 05/20/21 12:01 Dose: Not Given Documented by: Admin: 05/20/21 06:22 Dose: Not Given Documented by: Admin: 05/19/21 21:20 Dose: 100,000 units Documented by: Admin: 05/19/21 13:56 Dose: 100,000 units Documented by: Admin: 05/19/21 12:17 Dose: Not Given Documented by: Admin: 05/18/21 21:14 Dose: 100,000 units Documented by: Admin: 05/18/21 17:46 Dose: 100,000 units Documented by: Admin: 05/18/21 12:19 Dose: 100,000 units Documented by: Admin: 05/18/21 12:18 Dose: Not Given Documented by: Admin: 05/17/21 22:03 Dose: 100,000 units Documented by: Admin: 05/17/21 17:23 Dose: 100,000 units Documented by: Admin: 05/17/21 13:10 Dose: 100,000 units Documented by: Admin: 05/17/21 07:45 Dose: 100,000 units Documented by: Admin: 05/16/21 20:36 Dose: 100,000 units Documented by: [email or web address] Admin: 05/16/21 18:02 Dose: 100,000 units Documented by: Admin: 05/16/21 13:31 Dose: Not Given Documented by: Admin: 05/16/21 12:48 Dose: 100,000 units Documented by: Admin: 05/16/21 00:05 Dose: 100,000 units Documented by: Admin: 05/15/21 20:22 Dose: 100,000 units Documented by: Admin: 05/15/21 15:47 Dose: Not Given Documented by: Admin: 05/15/21 08:54 Dose: 100,000 units Documented by: Admin: 05/14/21 20:24 Dose: 100,000 units Documented by: ELVI Ondansetron HCl (Ondansetron 4 Mg/2 Ml Vial) 4 mg IV Q6HP PRN PRN Reason: Nausea And Vomiting Last Admin: 05/20/21 12:11 Dose: 4 mg Documented by: Admin: 05/19/21 14:25 Dose: 4 mg Documented by: Admin: 05/18/21 10:02 Dose: 4 mg Documented by: Admin: 05/17/21 20:41 Dose: 4 mg Documented by: JONATHAN Haddadigned by: EZIO Admin: 05/17/21 00:10 Dose: 4 mg Documented by: Admin: 05/15/21 16:02 Dose: 4 mg Documented by: DONTE Pantoprazole Sodium (Pantoprazole 40 Mg Tablet) 40 mg PO [facility] Admin: 05/20/21 07:24 Dose: 40 mg Documented by: Admin: 05/19/21 09:58 Dose: 40 mg Documented by: Admin: 05/18/21 09:08 Dose: 40 mg Documented by: Admin: 05/17/21 07:45 Dose: 40 mg Documented by: Admin: 05/16/21 09:28 Dose: 40 mg Documented by: Admin: 05/15/21 06:58 Dose: 40 mg Documented by: Admin: 05/14/21 07:16 Dose: 40 mg Documented by: DONTE Potassium Chloride (Potassium Ch[facility] 20 Meq Tablet) [facility] Admin: 05/20/21 12:00 Dose: 40 meq Documented by: Admin: 05/20/21 06:23 Dose: Not Given Documented by: Admin: 05/19/21 10:15 Dose: 40 meq Documented by: Admin: 05/18/21 16:37 Dose: 40 meq Documented by: Admin: 05/18/21 11:39 Dose: 40 meq Documented by: Admin: 05/17/21 17:23 Dose: 40 meq Documented by: Admin: 05/17/21 07:45 Dose: 40 meq Documented by: Admin: 05/16/21 20:35 Dose: 40 meq Documented by: [email or web address] Promethazine HCl (Promethazine 25 Mg/Ml Vial) 12.5 mg IV Q6HP PRN PRN Reason: Nausea And Vomiting Last Admin: 05/19/21 17:03 Dose: 12.5 mg Documented by: NAIF Sertraline HCl (Sertraline 50 Mg Tablet) 25 mg PO DAILY [facility] Admin: 05/20/21 11:56 Dose: 25 mg Documented by: Admin: 05/19/21 10:16 Dose: 25 mg Documented by: Admin: 05/18/21 11:44 Dose: 25 mg Documented by: Admin: 05/17/21 07:45 Dose: 25 mg Documented by: Admin: 05/16/21 10:40 Dose: 25 mg Documented by: Admin: 05/15/21 08:55 Dose: 25 mg Documented by: Admin: 05/14/21 08:20 Dose: 25 mg Documented by: DONTE Sodium Chloride (0.9 % Sodium Chloride 10 Ml Syringe) 10 ml IV Q8 [facility] Admin: 05/20/21 05:26 Dose: Not Given Documented by: Admin: 05/20/21 00:36 Dose: Not Given Documented by: Admin: 05/19/21 13:54 Dose: 10 ml Documented by: Admin: 05/19/21 09:59 Dose: 10 ml Documented by: Admin: 05/18/21 21:15 Dose: 10 ml Documented by: Admin: 05/18/21 14:54 Dose: Not Given Documented by: Admin: 05/18/21 07:39 Dose: Not Given Documented by: Admin: 05/17/21 23:07 Dose: 10 ml Documented by: Admin: 05/17/21 13:11 Dose: 10 ml Documented by: Admin: 05/17/21 06:08 Dose: 10 ml Documented by: Admin: 05/17/21 00:03 Dose: 10 ml Documented by: Admin: 05/16/21 14:35 Dose: Not Given Documented by: Admin: 05/16/21 06:10 Dose: Not Given Documented by: Admin: 05/15/21 20:23 Dose: Not Given Documented by: Admin: 05/15/21 14:10 Dose: Not Given Documented by: Admin: 05/15/21 05:06 Dose: Not Given Documented by: Admin: 05/14/21 20:18 Dose: Not Given Documented by: Admin: 05/14/21 13:38 Dose: Not Given Documented by: Admin: 05/14/21 04:11 Dose: Not Given Documented by: Admin: 05/13/21 22:01 Dose: Not Given Documented by: ELVI Sotalol HCl (Sotalol 80 Mg Tablet) 80 mg PO QHS [facility] Admin: 05/19/21 21:20 Dose: 80 mg Documented by: Admin: 05/18/21 21:15 Dose: 80 mg Documented by: Admin: 05/17/21 22:02 Dose: 80 mg Documented by: Admin: 05/16/21 20:35 Dose: 80 mg Documented by: Admin: 05/15/21 20:22 Dose: 80 mg Documented by: Admin: 05/14/21 21:35 Dose: 80 mg Documented by: ELVI Sotalol HCl (Sotalol 80 Mg Tablet) 40 mg PO DAILY [facility] Admin: 05/20/21 11:59 Dose: 40 mg Documented by: Admin: 05/19/21 10:17 Dose: 40 mg Documented by: Admin: 05/18/21 11:59 Dose: Not Given Documented by: Admin: 05/17/21 07:46 Dose: 40 mg Documented by: Admin: 05/16/21 10:38 Dose: 40 mg Documented by: Admin: 05/15/21 08:55 Dose: 40 mg Documented by: Admin: 05/14/21 11:30 Dose: 40 mg Documented by: DONTE Trazodone HCl (Trazodone Hcl 50 Mg Tablet) 25 mg PO HSP PRN PRN Reason: Insomnia Last Admin: 05/17/21 23:32 Dose: 25 mg Documented by: Admin: 05/16/21 20:35 Dose: 25 mg Documented by: Admin: 05/15/21 20:21 Dose: 25 mg Documented by: Admin: 05/14/21 21:35 Dose: 25 mg Documented by: Admin: 05/13/21 21:44 Dose: 25 mg Documented by: ELVI Shift Summary 05/20/21 04:14 Shift Summary by Monica Elaine Diagnosis: Admitted 05/13 w/ c/o abd pain & constipation. CT showed pelvic abcess. IR placed perc drain to drain abcess - R buttox. D/Cd on 05/17. Brief history of present illness: 04/17/2021 R colectomy for large adenocarcinoma of the cecum. Pt had throat dilated 2 weeks ago for chronic dysphagia, Hx GERD. Hx A-fib, coumadin being held due to high PT/INR, Vit K SQ x3 days completed. Pt was told she had about 9 months to live. Orientation: A&OX4 Oxygen/Airway needs: 1.5L NC for comfort. Ambulation status: SBA w/ FWW. DVT prophylaxis: Knee high TEDS bilat Voiding: Naturally per toilet. BM: Med, soft, formed x1 this shift. IV access: SL LFA Pain: Declined oral Tylenol, rating abd pain 2-3/10. No nausea this shift. Wounds: Mepilex to R buttox old perc drain site & Dermabond to Midline abd incision, CDI. Discharge plans: D/C home possibly today after CT reviewed by Additional Comments: Initialized on 05/20/21 04:14 - END OF NOTE
[2021-05-20] MEDS: PHYTONADIONE 10 MG/ML AMPUL SQ SCH (13:40)
== END 2021-05-20 14:00 | disposition home or self-care (01) | DRG 856 ==
LOC: ED 11:23 → MEDSUR 15:26
PROVIDERS: ADMIT Family Medicine Adult Medicine; ATTEND Family Medicine Adult Medicine

== ENCOUNTER 2021-08-24 15:04 | Observation (INO) ==
[2021-08-24] MEDS ORDERED: IOPAMIDOL 100 ML BOTTLE IV ONE (15:05)
[2021-08-24] MEDS ORDERED: ONDANSETRON 4 MG/2 ML VIAL IV ONE (15:31)
[2021-08-24] MEDS ORDERED: 0.9 % SODIUM CHLORIDE 1,000 ML IV ONE (15:31)
--- NOTE | 2021-08-24 15:43 | Emergency Department Note ---
HPI General Chief complaint: Abdominal Pain Stated complaint: Concern for bowel blockage. Time Seen by Provider: 08/24/21 15:20 Source: patient Mode of arrival: wheelchair Limitations: no limitations History of Present Illness HPI Narrative: Narrative: This patient presents with a complaint abdominal discomfort, nausea and vomiting. Patient has had somewhat chronic abdominal discomfort and reports she nearly always has some mild right lower quadrant discomfort. This has increased significantly in severity and she now has pain rating across her abdomen. She was able to have a small bowel movement today but reports it been several days since she last had one. She continues to feel nauseated but has not vomited today. She reports 2 episodes of vomiting in the last several days. She is not felt febrile or chilled. She is not had any urinary symptoms. She does report history significant for having part of her bowel taken out which she was advised was cancerous. She has not followed up with oncology and is not quite clear whether or not she was referred to oncology. She has tried to see her regular doctor but has not been able to get an appointment. She does take pain medication at home. She has been taking stool softeners which usually helps her move her bowels. Related Data Home Medications Medication Instructions Recorded Confirmed warfarin 5 mg tablet See Rx Instructions PO DAILY 09/14/20 08/22/21 sertraline 50 mg PO DAILY 04/13/21 08/22/21 fluticasone propionate 1 spray INTRANASAL DAILY 05/14/21 08/22/21 metoprolol succinate 25 mg PO DAILY 05/14/21 08/22/21 sotalol 40 mg PO DAILY 05/14/21 08/22/21 sotalol 80 mg PO HS 05/14/21 08/22/21 Previous Rx's Medication Instructions Recorded albuterol sulfate 90 mcg/actuation 2 puff INHALATION .COMPLEX PRN #18 12/22/20 aerosol inhaler g hydrocodone 7.5 mg-acetaminophen 1 tab PO Q6H PRN #120 tab 03/12/21 325 mg tablet losartan 100 1 tab PO QDAY #90 tab 04/02/21 mg-hydrochlorothiazide 25 mg tablet acetaminophen [Tylenol] 650 mg PO Q6HP PRN #60 tab 04/25/21 oxycodone 5 mg PO Q4HP PRN #5 tab 04/25/21 nystatin 100,000 unit/mL oral 6 ml PO QID 10 Days #240 ml 05/04/21 suspension ciprofloxacin HCl 500 mg PO BID #30 tab 05/20/21 metronidazole 500 mg PO TID #40 tab 05/20/21 diphenoxylate-atropine 2.5 1 tab PO Q4H PRN #30 tab 05/22/21 mg-0.025 mg tablet potassium chloride 10 mEq See Rx Instructions .ROUTE 07/05/21 capsule,extended release .COMPLEX #90 cap buspirone 5 mg tablet 5 mg PO BID #60 tab 07/18/21 acetaminophen 120 mg-codeine 12 5 ml PO Q6H PRN #118 ml 08/17/21 mg/5 mL oral solution Allergies Allergy/AdvReac Type Severity Reaction Status Date / Time ibuprofen Allergy Intermediate Shortness Verified 08/23/21 12:50 of Breath Amoxicillin [From Augmentin] AdvReac Intermediate Nausea/Vomiting Verified 08/23/21 12:50 and Diarrhea clavulanic acid AdvReac Intermediate Nausea/Vomiting Verified 08/23/21 12:50 [From Augmentin] and Diarrhea Review of Systems ROS ROS Narrative: Narrative: Pertinent positives and negatives as noted in HPI. All other systems reviewed and negative. [facility] Narr[facility] Patient History Narrative: Narrative: Medical/Surgical/Family History All Active Problems (Updated 08/24/21 @ 21:22 by Love Javed PA-C) Abscess of abdominal cavity (Acute) Liver metastases (Acute) Multiple lung nodules (Acute) Colon cancer (Acute) Abdominal pain (Acute) Abscess of abdominal cavity (Acute) Adenocarcinoma of cecum (Acute) Arthritis of left wrist (Acute) Arthritis of left wrist (Acute) Fatigue (Acute) Generalized abdominal pain with weight loss (Acute) Diarrhea (Acute) Vomiting (Acute) Sinusitis (Acute) UTI (urinary tract infection) (Acute) Contusion of right ankle (Acute) Contusion of right hand, sequela (Acute) Contusion of left hand, initial encounter (Acute) Medicare annual wellness visit, subsequent (Acute) Obstructive sleep apnea (Acute) Left shoulder strain (Acute) 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) Metabolic syndrome X (Chronic) Hyperlipidemia (Chronic) Depression (Chronic) Diverticular disease (Chronic) Osteoarthritis (Chronic) Knee pain (Chronic) Menopausal symptoms (Chronic) Hernia (Chronic) Plantar fasciitis (Chronic) Allergic rhinitis (Chronic) Dysphagia (Chronic) Reactive airway disease (Chronic) TIA (transient ischemic attack) (Chronic) Asthma (Chronic) Anticoagulation management encounter (Chronic) Abnormal mammogram (Chronic) Sleep apnea (Chronic) History of Coumadin therapy (Chronic) Atrial fibrillation (Chronic) Hypertension (Chronic) Hypokalemia due to excessive gastrointestinal loss of potassium (Chronic) Change in bowel habit (Chronic) Abdominal pain (Chronic) Renal calculus, right (Chronic) Common bile duct stricture (Chronic) Food sticks on swallowing (Chronic) GERD (gastroesophageal reflux disease) (Chronic) Bronchitis (Chronic) Hypokalemia (Chronic) Medical History Abdominal pain [facility] [phone] Abnormal mammogram Allergic rhinitis Anticoagulation management encounter Asthma Atrial fibrillation Bronchitis Change in bowel habit Colon cancer Common bile duct stricture Depression Diverticular disease Dysphagia Solids-history of dilation several years ago Food sticks on swallowing GERD (gastroesophageal reflux disease) Hernia History of Coumadin therapy Hyperlipidemia Hypertension Hypokalemia due to excessive gastrointestinal loss of potassium Knee pain Menopausal symptoms Metabolic syndrome X Osteoarthritis Plantar fasciitis Prolapse of vaginal wall with midline cystocele Reactive airway disease Renal calculus, right Sleep apnea TIA (transient ischemic attack) Surgical History History of appendectomy History of breast biopsy History of cervical spinal surgery Ruptured discs. History of colon resection History of colonoscopy 03/2021 History of hysterectomy History of right hemicolectomy History of right knee surgery History of ventral hernia repair Family History Father , Age 69 Lung cancer Sister Breast cancer Mother , Age 81 No problems noted. Social History Smoking Status: Never smoker Alcohol Intake Frequency: does not drink Substance Use: does not use Exam Narrative Narrative: Narrative: Vital signs noted General: mild distress. Skin: Warm. Dry. No rash. Normal color. Eyes: PERRL. Neck: Good ROM. No meningeal signs. Supple. Cardiovascular: Regular rate and rhythm. No murmur. Respiratory: No respiratory distress. Breath sounds equal. No wheezing/rales/rhonchi. Gastrointestinal: Abdomen soft. Diffuse tenderness with palpation. No distention. Normal bowel sounds. No rebound tenderness or guarding. Extremities: No tenderness. No swelling. No erythema. No edema. Good peripheral pulses x 4 Neurological: No focal neurological deficits observed. Alert. Oriented x 3 General Limitations: no limitations Course Course Course Narrative: An IV is established and the patient is medicated with Dilaudid for pain and Zofran for nausea. Labs ordered and reviewed UA is ordered and pending CT of the abdomen and pelvis with contrast is reported by radiology to be significant for multiple abscesses in the pelvis. These are noted previously on CT and the patient has previously had surgical intervention to have them drained. They are enlarged on imaging today. There are multiple new nodules in the lung bases that are concerning for metastasis. She is also noted to have multiple lesions to the liver that have increased in size compared to prior imaging. Primary source of metastases is unknown in this imaging. Patient did previously have percutaneous drainage of the abscesses. On-call surgeon Dr. Rousseau is consulted and reviewed the imaging. He believes these could again be drained percutaneously and he is happy to consult with surgical services if hospitalist finds the patient amenable to treatment at this facility. I did speak with the hospitalist who reviews the patient's information and does accept her to the service. Dr. Rousseau does come to the emergency department and visits with the patient and her family bedside. Patient is also evaluated bedside by the hospitalist here in the emergency department. Vital Signs Vital signs: Vital Signs Temperature 97.7 F 08/24/21 15:06 Pulse Rate 58 L 08/24/21 15:06 Respiratory Rate 18 08/24/21 15:06 Blood Pressure 161/77 08/24/21 15:06 Pulse Oximetry (%) 94 08/24/21 15:06 Temperature 97.7 F 08/24/21 15:06 Pulse Rate 57 L 08/24/21 20:40 Respiratory Rate 18 08/24/21 15:06 Blood Pressure 191/81 08/24/21 20:16 Pulse Oximetry (%) 94 08/24/21 20:40 [facility] MDM Narrative Medical decision making narrative: Narrative: Lab Data Result diagrams: 08/24/21 15:49 08/24/21 15:49 Labs: Lab Results 08/24/21 08/24/21 08/24/21 Range/Units 15:49 15:49 19:01 WBC 8.1 (4.5-11.0) K/mcL RBC 4.90 (3.59-5.38) M/mcL Hgb 10.2 L (11.2-15.7) g/dL Hct 33.2 L (34.1-44.9) % POC Hct 35 L (36-48) % MCV 67.8 L (80.0-100.0) fL MCH 20.8 L (26.0-34.0) pg MCHC 30.7 L (31.0-36.0) g/dL RDW 17.3 H (11.5-14.5) % Plt Count 335 (140-440) K/mcL MPV 10.4 (7.4-10.4) fL Neut % (Auto) 75.8 (38.0-78.0) % Lymph % (Auto) 12.3 L (15.5-49.0) % [place] % (Auto) 9.6 (1.0-12.0) % Eos % (Auto) 2.1 (0.0-7.0) % Baso % (Auto) 0.2 (0.0-2.0) % Lymph # (Auto) 0.99 L (1.50-4.80) K/mcL [place] # (Auto) 0.77 (0.10-0.90) K/mcL Eos # (Auto) 0.17 (0.00-0.70) K/mcL Baso # (Auto) 0.02 (0.00-0.30) K/mcL Absolute Neutrophils 6.11 (1.80-8.00) K/mcL PT 73.5 H (11.9-14.5) sec INR 8.5 H* (0.9-1.1) POC Sodium 133 (133-145) mEq/L Sodium 131 L (133-145) mmol/L POC Potassium 3.3 (3.3-5.1) mEql/L Potassium 3.3 (3.3-5.1) mmol/L POC Chloride 96 (96-108) mEq/L Chloride 94 L (96-108) mmol/L Carbon Dioxide 24 (22-30) mmol/L POC Total CO2 25 (22-30) mmol/L Anion Gap 13.0 (8.0-16.0) POC BUN 16 (6-20) mg/dL BUN 14 (8-23) mg/dL Creatinine 0.7 (0.6-1.1) mg/dL POC Creatinine 0.6 (0.6-1.2) mg/dL GFR Calculation 83 Glucose 132 H (70-105) mg/dL POC Glucose 137 H (70-105) mg/dL Calcium 10.7 H (8.6-10.4) mg/dL POC WB Ioniz Calcium 1.32 (1.16-1.32) mmEq/L Total Bilirubin 0.2 (0.1-1.0) mg/dL AST 20 (<32) U/L ALT 8 (<40) U/L Alkaline Phosphatase 270 H (39-117) U/L Total Protein 7.3 (5.9-8.4) gm/dL Albumin 3.8 (3.2-5.2) gm/dL Globulin 3.5 (2.2-3.7) gm/dL Albumin/Globulin Ratio 1.1 (1.0-2.3) Discharge Plan Patient/Caregiver Discharge Instructions Pt seen by CHILD CENTER ASSISTANT/PA only: Yes Clinical Impression: Abscess of abdominal cavity, Liver metastases, Multiple lung nodules Patient Disposition: Xfer As Outpt/Obs ([facility]) Follow up with: Jarocho Ricardo MD [Primary Care Provider] - Prescriptions: No Action hydrocodone-acetaminophen 7.5-325 mg tablet 1 tab PO Q6H PRN (Reason: pain) Qty: 120 RF: 0 losartan-hydrochlorothiazide 100-25 mg tablet 1 tab PO QDAY Qty: 90 RF: 3 nystatin 100,000 unit/mL suspension 6 ml PO QID 10 Days Qty: 240 RF: 0 diphenoxylate-atropine [Lomotil] 2.5-0.025 mg tablet 1 tab PO Q4H PRN (Reason: diarrhea) Qty: 30 RF: 0 potassium chloride 10 mEq capsule, extended release See Rx Instructions .ROUTE .COMPLEX Qty: 90 RF: 0 buspirone 5 mg tablet 5 mg PO BID Qty: 60 RF: 6 acetaminophen-codeine 120-12 mg/5 mL solution 5 ml PO Q6H PRN (Reason: cancer pain) Qty: 118 RF: 0 albuterol sulfate [Ventolin HFA] 90 mcg/actuation HFA aerosol inhaler 2 puff INHALATION .COMPLEX PRN (Reason: shortness of breath or wheezing) Qty: 18 RF: 2 warfarin 5 mg tablet See Rx Instructions PO DAILY RF: 0 sertraline 50 mg tablet 50 mg PO DAILY RF: 0 acetaminophen [Tylenol] 325 mg Tablet 650 mg PO Q6HP PRN (Reason: pain) Qty: 60 RF: 0 oxycodone 5 mg Tablet 5 mg PO Q4HP PRN (Reason: Per Pain Protocol) Qty: 5 RF: 0 metoprolol succinate 25 mg tablet extended release 24 hr 25 mg PO DAILY RF: 0 fluticasone propionate 50 mcg/actuation spray,suspension 1 spray INTRANASAL DAILY RF: 0 sotalol 80 mg Tablet 80 mg PO HS RF: 0 sotalol 80 mg Tablet 40 mg PO DAILY RF: 0 ciprofloxacin HCl 500 mg tablet 500 mg PO BID Qty: 30 RF: 0 metronidazole 500 mg tablet 500 mg PO TID Qty: 40 RF: 0
[2021-08-24 15:57] LABS: POC Blood Urea Nitrogen 16 mg/dL (6-20); POC CO2 25 mmol/L (22-30); POC Calcium, Ionized 1.32 mmEq/L (1.16-1.32); POC Chloride 96 mEq/L (96-108); POC Creatinine 0.6 mg/dL (0.6-1.2); POC Glucose, Random 137 mg/dL (70-105); POC Hematocrit 35 % (36-48); POC Potassium 3.3 mEql/L (3.3-5.1); POC Sodium 133 mEq/L (133-145)
[2021-08-24] MEDS: HYDROmorphone 0.5 MG/0.5 ML SYRINGE IV PRN ×2 (16:00→18:38)
[2021-08-24 16:12] LABS: Basophils # (Auto) 0.02 K/mcL (0.00-0.30); Basophils % (Auto) 0.2 % (0.0-2.0); Eosinophils # (Auto) 0.17 K/mcL (0.00-0.70); Eosinophils % (Auto) 2.1 % (0.0-7.0); Hematocrit 33.2 % (34.1-44.9); Hemoglobin 10.2 g/dL (11.2-15.7); Lymphocytes # (Auto) 0.99 K/mcL (1.50-4.80); Lymphocytes % (Auto) 12.3 % (15.5-49.0); Mean Cell Volume 67.8 fL (80.0-100.0); Mean Corpuscular HGB Conc 30.7 g/dL (31.0-36.0); Mean Platelet Volume 10.4 fL (7.4-10.4); Monocytes # (Auto) 0.77 K/mcL (0.10-0.90); Monocytes % (Auto) 9.6 % (1.0-12.0); Neutrophils % (Auto) 75.8 % (38.0-78.0); Platelet Count 335 K/mcL (140-440); Red Cell Distribution Width 17.3 % (11.5-14.5); WBC 8.1 K/mcL (4.5-11.0)
[2021-08-24 16:33] LABS: ALT/SGPT 8 U/L (<40); AST/SGOT 20 U/L (<32); Albumin 3.8 gm/dL (3.2-5.2); Albumin/Globulin Ratio 1.1 (1.0-2.3); Alkaline Phosphatase 270 U/L (39-117); Bilirubin,Total 0.2 mg/dL (0.1-1.0); Blood Urea Nitrogen 14 mg/dL (8-23); Calcium 10.7 mg/dL (8.6-10.4); Carbon Dioxide 24 mmol/L (22-30); Chloride 94 mmol/L (96-108); Globulin 3.5 gm/dL (2.2-3.7); Glomerular Filtration Rate 83; Glucose 132 mg/dL (70-105)
--- NOTE | 2021-08-24 18:03 | Cat Scan Report ---
CLINICAL INFORMATION: Abdominal pain COMPARISON: 05/20/2021 TECHNIQUE: Following enteric contrast, 80 cc of Isovue-370 were injected intravenously, and 60 seconds later, 0.625 mm helical slices were obtained from the mid heart through the subtrochanteric regions. Following reconstruction, 2.5 mm sagittal, coronal and axial reformatted images were processed and reviewed at bone, lung and soft tissue windows. Five minutes later, 0.625 mm helical slices were obtained from the mid heart through the kidneys and viewed at soft tissue windows.The exam was performed using radiation dose optimization techniques including, but not limited to, automated exposure control, adjustment of the mA and/or kV according to patient size and use of iterative reconstruction technique. FINDINGS: Since the prior CT three months prior, scattered solid nodules have developed in both inferior lower lobes ranging up to 15 mm in the lateral basilar segment left lower lobe. They're are more suspicious for metastases or granulomas. No effusions. The visualized heart is mildly enlarged with scattered calcific plaque seen in the coronary arteries. There is also calcification in the mitral and aortic valves. Abdominal images now show low-attenuation lesions scattered throughout the liver suspicious for metastases or infection. These range up to 4.1 cm in the anterior segment of the right hepatic lobe. Multiple markedly enlarged lymph nodes have developed in the umm hepatis, peripancreatic and periduodenal region ranging up to 3 cm. The pancreas itself appears unremarkable: enlarged peripancreatic lymph nodes compress the pancreatic head and neck. It is possible, but unlikely, that one of the larger nodes may originate from the pancreatic parenchyma represent primary pancreatic carcinoma. Pancreatic duct is normal. Common bile duct is mildly dilated at 10 mm however, this is unchanged likely related to postcholecystectomy. The spleen, both adrenal glands and aorta, including aortic branches, are normal in size configuration and attenuation without focal lesion. 20 mm nonobstructing stone inferior calyx of left kidney is stable. Two left renal cysts also unchanged. Right kidney unremarkable. There is no free air or free fluid. Pelvic images show urinary bladder is unremarkable. Hysterectomy/oophorectomy changes noted. Partial right colectomy changes are noted. A 3.8 cm fluid collection or less likely necrotic lymph node is seen in the inferior pericolonic region. Irregular bilobed fluid collection in the right pericolonic region has increased in size now spanning 7.5 x 2.8 cm. A 4 cm thick walled fluid collection, likely an abscess, is seen in the right lateral rectosigmoid junction. There is increased from 20 mm on the prior exam. The remainder of the stomach small large bowel are normal. Bone windows show no osseous abnormality IMPRESSION: 1. Enlargement of right pericolonic abscesses since the comparison CT three months prior. There are two: 7.5 and 3.8 cm respectively. A 4 cm abscess in the right lateral perirectosigmoid region has also increased. 2. Multiple low-attenuation lesions within the liver ranging up to 4 cm in the right attic lobe have progressed dramatically since the previous exam. Hepatic abscesses related to mesenteric cavity abscesses are suspected, the possibility of metastases from an unknown primary carcinoma should also be entertained. Massive adenopathy as developed in the umm hepatis, peripancreatic and periduodenal regions. 3. Scattered nodules in the lung bases ranging up to 15 mm are new. They're more suspicious for metastases than infectious granulomas. 4. 3 mm nonobstructing stone inferior calyx left kidney. Two cysts superior pole left kidney are stable Suggest: ultrasound-guided biopsy/aspiration of the largest low-attenuation lesion in the right hepatic lobe for tissue diagnosis. Also please correlate with CA 19-9 a serologic marker for pancreatic carcinoma Interpreted and Authenticated by: Timothy George 08/24/21
[2021-08-24 20:19] LABS: INR 8.5 (0.9-1.1); Prothrombin Time 73.5 sec (11.9-14.5)
--- NOTE | 2021-08-24 21:54 | Internal Med History&Physical ---
HPI History of Present Illness Patient information: Note initiated : 08/24/21 at 9:42 pm Service Date, if different from initiated Date: [] Patient: Annie Gomez a 76 y/o F admitted on for Concern for bowel blockage.. Chief Complaint: [abdominal pain] History of present illness: Ms. Gomez is a 76 year old F history of metastatic adenocarcinoma of cecum, atrial fibrillation, presenting with worsening abdominal pain. Patient was being diagnosed with adenocarcinoma of cecum status post colectomy by Dr. Melendrez in March 2021. It was complicated by pericolonic abscess in May and the abscess was drained by general surgeons Dr. Walsh in May 2021. Patient come to the ER today due to worsening abdominal pain. She is currently company of 6 out of 10, sharp and pressure-like, constant diffuse abdominal pain. She is also committing of nausea and vomiting with 2 episodes of vomit 2 days ago. She is also committing of constipation for a few days until she finally had a small bowel movement yesterday. She is also complained of general body weakness. She is also committing of decreasing appetite. She denies any fever or chills. CT abdomen pelvis with contrast this evening showing multiple pericolonic abscess with the largest one measuring 7.5 cm. The scan also showing multiple lung and liver metastases. INR elevated to 8.5. Constitutional Constitutional: Present weakness; Absent chills, excessive sweating, fatigue and fever(s) EENT Eyes: Absent blurry vision, change in vision, loss of vision and other visual disturbances Ears: Absent decreased hearing and tinnitus Nose, mouth and throat: Absent abnormal hearing, dry mouth, headache(s), nasal congestion and sore throat Cardiovascular Cardiovascular: Absent chest pain, chest pain at rest, edema, irregular heart rhythm and palpatations Respiratory Respiratory: Absent cough, dyspnea and wheezing Gastrointestinal Gastrointestinal: Present abdominal pain, constipation, nausea and vomiting; Absent diarrhea Musculoskeletal Musculoskeletal: Absent back pain, deformity, limited range of motion, muscle cramps, muscle weakness and numbness Integumentary Integumentary: Absent lesions, rash and wounds Neurological Neurological: Absent focal weakness, headache(s) and numbness Psychiatric Psychiatric: Absent anxiety, depression and hallucinations PFSH PFSH All Active Problems (Updated 08/24/21 @ 21:50 by Robert Odell MD) Coagulopathy (Acute) Hypochromic microcytic anemia (Acute) Pericolonic abscess (Acute) Abscess of abdominal cavity (Acute) Liver metastases (Acute) Multiple lung nodules (Acute) Colon cancer (Acute) Abdominal pain (Acute) Abscess of abdominal cavity (Acute) Adenocarcinoma of cecum (Acute) Arthritis of left wrist (Acute) Arthritis of left wrist (Acute) Fatigue (Acute) Generalized abdominal pain with weight loss (Acute) Diarrhea (Acute) Vomiting (Acute) Sinusitis (Acute) UTI (urinary tract infection) (Acute) Contusion of right ankle (Acute) Contusion of right hand, sequela (Acute) Contusion of left hand, initial encounter (Acute) Medicare annual wellness visit, subsequent (Acute) Obstructive sleep apnea (Acute) Left shoulder strain (Acute) 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) Metabolic syndrome X (Chronic) Hyperlipidemia (Chronic) Depression (Chronic) Diverticular disease (Chronic) Osteoarthritis (Chronic) Knee pain (Chronic) Menopausal symptoms (Chronic) Hernia (Chronic) Plantar fasciitis (Chronic) Allergic rhinitis (Chronic) Dysphagia (Chronic) Reactive airway disease (Chronic) TIA (transient ischemic attack) (Chronic) Asthma (Chronic) Anticoagulation management encounter (Chronic) Abnormal mammogram (Chronic) Sleep apnea (Chronic) History of Coumadin therapy (Chronic) Atrial fibrillation (Chronic) Hypertension (Chronic) Hypokalemia due to excessive gastrointestinal loss of potassium (Chronic) Change in bowel habit (Chronic) Abdominal pain (Chronic) Renal calculus, right (Chronic) Common bile duct stricture (Chronic) Food sticks on swallowing (Chronic) GERD (gastroesophageal reflux disease) (Chronic) Bronchitis (Chronic) Hypokalemia (Chronic) Medical History Abdominal pain [facility] [phone] Abnormal mammogram Allergic rhinitis Anticoagulation management encounter Asthma Atrial fibrillation Bronchitis Change in bowel habit Colon cancer Common bile duct stricture Depression Diverticular disease Dysphagia Solids-history of dilation several years ago Food sticks on swallowing GERD (gastroesophageal reflux disease) Hernia History of Coumadin therapy Hyperlipidemia Hypertension Hypokalemia due to excessive gastrointestinal loss of potassium Knee pain Menopausal symptoms Metabolic syndrome X Osteoarthritis Plantar fasciitis Prolapse of vaginal wall with midline cystocele Reactive airway disease Renal calculus, right Sleep apnea TIA (transient ischemic attack) Surgical History History of appendectomy History of breast biopsy History of cervical spinal surgery Ruptured discs. History of colon resection History of colonoscopy 03/2021 History of hysterectomy History of right hemicolectomy History of right knee surgery History of ventral hernia repair Family History Father , Age 69 Lung cancer Sister Breast cancer Mother , Age 81 No problems noted. Social History marital status: occupational status: retired smoking status: Former smoker alcohol intake frequency: does not drink substance use type: does not use MEDS/ALLERGIES Home Medications and Allergies Home Medications Medication Instructions Recorded Confirmed Type warfarin 5 mg tablet See Rx Instructions PO DAILY 09/14/20 08/22/21 History albuterol sulfate 90 mcg/actuation 2 puff INHALATION .COMPLEX PRN #18 12/22/20 08/22/21 Rx aerosol inhaler g hydrocodone 7.5 mg-acetaminophen 1 tab PO Q6H PRN #120 tab 03/12/21 08/22/21 Rx 325 mg tablet losartan 100 1 tab PO QDAY #90 tab 04/02/21 08/22/21 Rx mg-hydrochlorothiazide 25 mg tablet sertraline 50 mg PO DAILY 04/13/21 08/22/21 History acetaminophen [Tylenol] 650 mg PO Q6HP PRN #60 tab 04/25/21 08/22/21 Rx oxycodone 5 mg PO Q4HP PRN #5 tab 04/25/21 08/22/21 Rx nystatin 100,000 unit/mL oral 6 ml PO QID 10 Days #240 ml 05/04/21 08/22/21 Rx suspension fluticasone propionate 1 spray INTRANASAL DAILY 05/14/21 08/22/21 History metoprolol succinate 25 mg PO DAILY 05/14/21 08/22/21 History sotalol 40 mg PO DAILY 05/14/21 08/22/21 History sotalol 80 mg PO HS 05/14/21 08/22/21 History ciprofloxacin HCl 500 mg PO BID #30 tab 05/20/21 08/22/21 Rx metronidazole 500 mg PO TID #40 tab 05/20/21 08/22/21 Rx diphenoxylate-atropine 2.5 1 tab PO Q4H PRN #30 tab 05/22/21 08/22/21 Rx mg-0.025 mg tablet potassium chloride 10 mEq See Rx Instructions .ROUTE 07/05/21 08/22/21 Rx capsule,extended release .COMPLEX #90 cap buspirone 5 mg tablet 5 mg PO BID #60 tab 07/18/21 08/22/21 Rx acetaminophen 120 mg-codeine 12 5 ml PO Q6H PRN #118 ml 08/17/21 08/22/21 Rx mg/5 mL oral solution Allergies Allergy/AdvReac Type Severity Reaction Status Date / Time ibuprofen Allergy Intermediate Shortness Verified 08/23/21 12:50 of Breath Amoxicillin [From Augmentin] AdvReac Intermediate Nausea/Vomiting Verified 08/23/21 12:50 and Diarrhea clavulanic acid AdvReac Intermediate Nausea/Vomiting Verified 08/23/21 12:50 [From Augmentin] and Diarrhea EXAM Constitutional Vitals: Temp Pulse Resp BP Pulse Ox 36.5 C 63 18 191/81 93 08/24/21 15:06 08/24/21 21:23 08/24/21 15:06 08/24/21 20:16 08/24/21 21:23 General appearance: cooperative and no acute distress Head Head exam: Present atraumatic and normocephalic Eye Eye exam: Present EOMI and PERRL ENT ENT exam: Present mucous membranes moist, normal exam and normal external ear exam Neck Neck exam: Present normal inspection; Absent lymphadenopathy, tenderness and thyromegaly Respiratory Respiratory exam: Absent accessory muscle use, respiratory distress and wheezes Cardiovascular Cardiovascular exam: Present irregular rhythm; Absent JVD GI/Abdominal GI/Abdominal exam: Present distended, firm, hypoactive bowel sounds, mass, o rganomegaly and tenderness; Absent normal bowel sounds and soft Extremities Exam Extremities exam: Present full ROM, normal capillary refill and normal inspection; Absent tenderness Neurological Exam Neurological exam: Present alert, CN II-XII intact and oriented X3; Absent motor sensory deficit Psychiatric Psychiatric exam: Present normal affect and normal mood; Absent anxious and depressed Skin Skin exam: Present dry and intact DATA Data Completed and Pending Labs: Labs from last 24 hours 08/24/21 08/24/21 08/24/21 19:01 15:49 15:49 WBC 8.1 RBC 4.90 Hgb 10.2 L Hct 33.2 L POC Hct 35 L MCV 67.8 L MCH 20.8 L MCHC 30.7 L RDW 17.3 H Plt Count 335 MPV 10.4 Neut % (Auto) 75.8 Lymph % (Auto) 12.3 L Sunflower % (Auto) 9.6 Eos % (Auto) 2.1 Baso % (Auto) 0.2 Lymph # (Auto) 0.99 L Sunflower # (Auto) 0.77 Eos # (Auto) 0.17 Baso # (Auto) 0.02 Absolute Neutrophils 6.11 PT 73.5 H INR 8.5 H* POC Sodium 133 Sodium 131 L POC Potassium 3.3 Potassium 3.3 POC Chloride 96 Chloride 94 L Carbon Dioxide 24 POC Total CO2 25 Anion Gap 13.0 POC BUN 16 BUN 14 Creatinine 0.7 POC Creatinine 0.6 GFR Calculation 83 Glucose 132 H POC Glucose 137 H Calcium 10.7 H POC WB Ioniz Calcium 1.32 Total Bilirubin 0.2 AST 20 ALT 8 Alkaline Phosphatase 270 H Total Protein 7.3 Albumin 3.8 Globulin 3.5 Albumin/Globulin Ratio 1.1 A/P Assessment and plan (1) Pericolonic abscess: Status: Acute (2) Hypochromic microcytic anemia: Status: Acute (3) Adenocarcinoma of cecum: Status: Acute (4) Atrial fibrillation: Status: Chronic Qualifiers: Atrial fibrillation type: longstanding persistent Qualified Code(s): I48.11 - Longstanding persistent atrial fibrillation (5) Hypertension: Status: Chronic Qualifiers: Hypertension type: essential hypertension Qualified Code(s): I10 - Essential (primary) hypertension (6) Coagulopathy: Status: Acute Narrative A/P Narrative: Assessment and plan: 1. Metastatic cecal adenocarcinoma with pericolonic abscesses: Admit to observation Medr Consult general surgeon Dr. Rousseau and/or interventional radiologist for potential. Cutaneous abscess drainage and drain placement Regular diet for now and n.p.o. after midnight in preparation for potential procedures in the morning IV Vitamin K right now and will repeat INR in the morning to make sure INR is at a level comfortable by the surgeons and radiologist to do the aforementioned procedures [place] and oxycodone as needed moderate pain Dilaudid IV as needed breakthrough and severe pain Switch to IV antibiotics Zosyn for empiric antibiotics 2. Coagulopathy with elevated INR 8.5: IV Vitamin K right now and will repeat INR in the morning to make sure INR is at a level comfortable by the surgeons and radiologist to do the aforementioned procedures Hold Coumadin #3 atrial fibrillation's: Continue beta-lorraine for rate control Hold Coumadin IV Vitamin K right now and will repeat INR in the morning to make sure INR is at a level comfortable by the surgeons and radiologist to do the aforementioned procedures #4 anemia, Microcytic hypochromic: CBC with auto differential in the morning to trend hemoglobin and hematocrit and transfuse PRBC if hemoglobin is less than 7.0, active bleeding, or if the patient becomes symptomatic GI prophylaxis: Not currently indicated DVT prophylaxis: SCDs CODE STATUS: Full code Prognosis: Guarded Disposition: Observation MedSurg Time Spent With Patient Time: Total time spent is greater than 50% in coordination of care (as documented) at patient's floor/unit and/or counseling patient: Total time spent with greater than 50% in coordination of care (as documented) at patient's floor/unit and/or counseling patient:: Greater than 35 minutes
[2021-08-25] MEDS ORDERED: LIDOCAINE W/EPI 1% 20 ML VIAL IJ ONE (00:02)
[2021-08-25] MEDS ORDERED: IOPAMIDOL 100 ML BOTTLE IV ONE (00:16)
[2021-08-25] MEDS ORDERED: traZODone HCL 50 MG TABLET PO PRN (00:16)
[2021-08-25] MEDS ORDERED: oxyCODONE HCL 5 MG TABLET PO PRN (00:16)
[2021-08-25] MEDS ORDERED: DIPHENOXYLATE HCL/ATROPINE 1 TABLET PO PRN (00:16)
[2021-08-25] MEDS ORDERED: ACETAMINOPHEN (PP) 325MG TABLET (#50) PO PRN (00:16)
[2021-08-25] MEDS ORDERED: PHYTONADIONE 10 MG in 0.9 % SODIUM CHLORIDE 50 ML IV ONE ×2 (00:16→09:07)
[2021-08-25] MEDS ORDERED: ALBUTEROL SULFATE 200 PUFF INHALER INH PRN (00:16)
[2021-08-25] MEDS ORDERED: HYDROcodone/APAP (PP) 7.5/325MG TABLET (#4) PO PRN (00:16)
[2021-08-25] MEDS ORDERED: HYDROmorphone 1 MG/ML SYRINGE IV PRN (00:16)
[2021-08-25] MEDS ORDERED: ACETAMINOPHEN 325 MG TABLET PO PRN (00:16)
[2021-08-25] MEDS: 0.9 % SODIUM CHLORIDE 10 ML SYRINGE IV SCH ×4 (00:36→20:57)
[2021-08-25] MEDS ORDERED: HYDROmorphone 1 MG/ML SYRINGE ONE (00:38)
[2021-08-25] MEDS: 0.9 % SODIUM CHLORIDE 1,000 ML IV SCH ×3 (00:45→20:57)
[2021-08-25] MEDS: PIPERACILLIN SODIUM/TAZOBACTAM 3.375 GM in DEXTROSE 5% IN WATER 50 ML IV SCH ×5 (00:54→23:54)
[2021-08-25 02:35] LABS: INR 7.7 (0.9-1.1); Prothrombin Time 68.3 sec (11.9-14.5)
[2021-08-25] MEDS: ONDANSETRON 4 MG/2 ML VIAL IV PRN ×2 (08:21→20:53)
--- NOTE | 2021-08-25 08:46 | General Surgery Consult Note ---
HPI Data of Consult Patient: known to practice within the last 3 years Consult date: 08/24/21 Primary Care Provider: Jarocho Ricardo MD Consult Narrative Chief complaint: Abdominal Pain with Intra abdominal Fluid Collections Reason for consult: above History of present illness: Ms Gomez is seen in consultation in the ER (08/24 at 2030) after presenting with worsening RLQ abdominal pain and just generalized abdominal malaise. She is now almost 5 months out from a Right Colectomy for Colon Cancer that was followed by the development of intra abdominal abscess several weeks later. She underwent treatment with IV/PO ABs as well as perc sincere in placement with interval resolution. There has been radiographic suggestion of the development of possible Stage IV metastatic disease with possible hepatic mets. She presents today with what has felt like increasing pain in the Right Mid and Lower Abdomen accompanied by family members. She has had some emesis of late but has had stools and gas. CT scan here in the ER demonstrated 2 apparent fluid collections felt to be consistent with possible intra abdominal abscesses as well some evidence of possible stage IV disease progression. Of note, she is on Coumadin for issues related to Atrial Fibrillation and her INR here in the ER today was 8. She has recently had an INR as high as 11 per report. There is no report of fevers, chills and her WBC has been wnl. We were asked to see her in consultation tonight and she is well known to our surgical service here at the hospital. cc:: CC: Robert Odell MD Review of Systems Review of systems: a full ROS was conducted and pertinent positives and negatives are mentioned above PFSH PFSH All Active Problems (Updated 08/24/21 @ 21:50 by Robert Odell MD) Coagulopathy (Acute) Hypochromic microcytic anemia (Acute) Pericolonic abscess (Acute) Abscess of abdominal cavity (Acute) Liver metastases (Acute) Multiple lung nodules (Acute) Colon cancer (Acute) Abdominal pain (Acute) Abscess of abdominal cavity (Acute) Adenocarcinoma of cecum (Acute) Arthritis of left wrist (Acute) Arthritis of left wrist (Acute) Fatigue (Acute) Generalized abdominal pain with weight loss (Acute) Diarrhea (Acute) Vomiting (Acute) Sinusitis (Acute) UTI (urinary tract infection) (Acute) Contusion of right ankle (Acute) Contusion of right hand, sequela (Acute) Contusion of left hand, initial encounter (Acute) Medicare annual wellness visit, subsequent (Acute) Obstructive sleep apnea (Acute) Left shoulder strain (Acute) 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) Metabolic syndrome X (Chronic) Hyperlipidemia (Chronic) Depression (Chronic) Diverticular disease (Chronic) Osteoarthritis (Chronic) Knee pain (Chronic) Menopausal symptoms (Chronic) Hernia (Chronic) Plantar fasciitis (Chronic) Allergic rhinitis (Chronic) Dysphagia (Chronic) Reactive airway disease (Chronic) TIA (transient ischemic attack) (Chronic) Asthma (Chronic) Anticoagulation management encounter (Chronic) Abnormal mammogram (Chronic) Sleep apnea (Chronic) History of Coumadin therapy (Chronic) Atrial fibrillation (Chronic) Hypertension (Chronic) Hypokalemia due to excessive gastrointestinal loss of potassium (Chronic) Change in bowel habit (Chronic) Abdominal pain (Chronic) Renal calculus, right (Chronic) Common bile duct stricture (Chronic) Food sticks on swallowing (Chronic) GERD (gastroesophageal reflux disease) (Chronic) Bronchitis (Chronic) Hypokalemia (Chronic) Medical History Abdominal pain [facility] [phone] Abnormal mammogram Allergic rhinitis Anticoagulation management encounter Asthma Atrial fibrillation Bronchitis Change in bowel habit Colon cancer Common bile duct stricture Depression Diverticular disease Dysphagia Solids-history of dilation several years ago Food sticks on swallowing GERD (gastroesophageal reflux disease) Hernia History of Coumadin therapy Hyperlipidemia Hypertension Hypokalemia due to excessive gastrointestinal loss of potassium Knee pain Menopausal symptoms Metabolic syndrome X Osteoarthritis Plantar fasciitis Prolapse of vaginal wall with midline cystocele Reactive airway disease Renal calculus, right Sleep apnea TIA (transient ischemic attack) Surgical History History of appendectomy History of breast biopsy History of cervical spinal surgery Ruptured discs. History of colon resection History of colonoscopy 03/2021 History of hysterectomy History of right hemicolectomy History of right knee surgery History of ventral hernia repair Family History Father , Age 69 Lung cancer Sister Breast cancer Mother , Age 81 No problems noted. Social History marital status: occupational status: retired smoking status: Former smoker alcohol intake frequency: does not drink substance use type: does not use MEDS/ALLERGIES Home Medications and Allergies Home Medications Medication Instructions Recorded Confirmed Type warfarin 5 mg tablet See Rx Instructions PO DAILY 09/14/20 08/22/21 History albuterol sulfate 90 mcg/actuation 2 puff INHALATION .COMPLEX PRN #18 12/22/20 08/22/21 Rx aerosol inhaler g hydrocodone 7.5 mg-acetaminophen 1 tab PO Q6H PRN #120 tab 03/12/21 08/22/21 Rx 325 mg tablet losartan 100 1 tab PO QDAY #90 tab 04/02/21 08/22/21 Rx mg-hydrochlorothiazide 25 mg tablet sertraline 50 mg PO DAILY 04/13/21 08/22/21 History acetaminophen [Tylenol] 650 mg PO Q6HP PRN #60 tab 04/25/21 08/22/21 Rx oxycodone 5 mg PO Q4HP PRN #5 tab 04/25/21 08/22/21 Rx nystatin 100,000 unit/mL oral 6 ml PO QID 10 Days #240 ml 05/04/21 08/22/21 Rx suspension fluticasone propionate 1 spray INTRANASAL DAILY 05/14/21 08/22/21 History metoprolol succinate 25 mg PO DAILY 05/14/21 08/22/21 History sotalol 40 mg PO DAILY 05/14/21 08/22/21 History sotalol 80 mg PO HS 05/14/21 08/22/21 History ciprofloxacin HCl 500 mg PO BID #30 tab 05/20/21 08/22/21 Rx metronidazole 500 mg PO TID #40 tab 05/20/21 08/22/21 Rx diphenoxylate-atropine 2.5 1 tab PO Q4H PRN #30 tab 05/22/21 08/22/21 Rx mg-0.025 mg tablet potassium chloride 10 mEq See Rx Instructions .ROUTE 07/05/21 08/22/21 Rx capsule,extended release .COMPLEX #90 cap buspirone 5 mg tablet 5 mg PO BID #60 tab 07/18/21 08/22/21 Rx acetaminophen 120 mg-codeine 12 5 ml PO Q6H PRN #118 ml 08/17/21 08/22/21 Rx mg/5 mL oral solution Allergies Allergy/AdvReac Type Severity Reaction Status Date / Time ibuprofen Allergy Intermediate Shortness Verified 08/23/21 12:50 of Breath Amoxicillin [From Augmentin] AdvReac Intermediate Nausea/Vomiting Verified 08/23/21 12:50 and Diarrhea clavulanic acid AdvReac Intermediate Nausea/Vomiting Verified 08/23/21 12:50 [From Augmentin] and Diarrhea Physical Examination Vital Signs Vital signs: Temp Pulse Resp BP Pulse Ox 97 F 55 L 14 127/59 95 08/25/21 07:50 08/25/21 07:50 08/25/21 07:50 08/25/21 07:50 08/25/21 07:50 General physical appearance General physical exam: no distress Eyes Eye exam: negative icteric Head Head exam IM: Present normocephalic Cardiovascular Cardiovascular exam IM: Present normal rate and rhythm Respiratory Respiratory exam: other (no evidence of respiratory distress ) Abdomen Abdomen: Present soft and non tender (mild tenderness that seems non focal with no guarding or other peritoneal findings. No mass in appreciable and her midline scar seems well healed ); Absent distended Neurologic Neurologic: Present other (grossly intact ) Psychiatric Psychiatric: Present other (normal affect ) Results Labs Result diagrams: 08/24/21 15:49 08/24/21 15:49 Labs: Abnormal lab results 08/24/21 08/24/21 08/24/21 Range/Units 15:49 15:49 19:01 Hgb 10.2 L (11.2-15.7) g/dL Hct 33.2 L (34.1-44.9) % POC Hct 35 L (36-48) % MCV 67.8 L (80.0-100.0) fL MCH 20.8 L (26.0-34.0) pg MCHC 30.7 L (31.0-36.0) g/dL RDW 17.3 H (11.5-14.5) % Lymph % (Auto) 12.3 L (15.5-49.0) % Lymph # (Auto) 0.99 L (1.50-4.80) K/mcL PT 73.5 H (11.9-14.5) sec INR 8.5 H* (0.9-1.1) Sodium 131 L (133-145) mmol/L Chloride 94 L (96-108) mmol/L Glucose 132 H (70-105) mg/dL POC Glucose 137 H (70-105) mg/dL Calcium 10.7 H (8.6-10.4) mg/dL Alkaline Phosphatase 270 H (39-117) U/L 08/25/21 Range/Units 00:55 Hgb (11.2-15.7) g/dL Hct (34.1-44.9) % POC Hct (36-48) % MCV (80.0-100.0) fL MCH (26.0-34.0) pg MCHC (31.0-36.0) g/dL RDW (11.5-14.5) % Lymph % (Auto) (15.5-49.0) % Lymph # (Auto) (1.50-4.80) K/mcL PT 68.3 H (11.9-14.5) sec INR 7.7 H* (0.9-1.1) Sodium (133-145) mmol/L Chloride (96-108) mmol/L Glucose (70-105) mg/dL POC Glucose (70-105) mg/dL Calcium (8.6-10.4) mg/dL Alkaline Phosphatase (39-117) U/L Diabetes panel 08/24/21 Range/Units 15:49 Sodium 131 L (133-145) mmol/L Potassium 3.3 (3.3-5.1) mmol/L Chloride 94 L (96-108) mmol/L Carbon Dioxide 24 (22-30) mmol/L BUN 14 (8-23) mg/dL Creatinine 0.7 (0.6-1.1) mg/dL Glucose 132 H (70-105) mg/dL Calcium 10.7 H (8.6-10.4) mg/dL AST 20 (<32) U/L ALT 8 (<40) U/L Alkaline Phosphatase 270 H (39-117) U/L Total Protein 7.3 (5.9-8.4) gm/dL Albumin 3.8 (3.2-5.2) gm/dL Calcium panel 08/24/21 Range/Units 15:49 Calcium 10.7 H (8.6-10.4) mg/dL Albumin 3.8 (3.2-5.2) gm/dL Pituitary panel 08/24/21 Range/Units 15:49 Sodium 131 L (133-145) mmol/L Potassium 3.3 (3.3-5.1) mmol/L Chloride 94 L (96-108) mmol/L Carbon Dioxide 24 (22-30) mmol/L BUN 14 (8-23) mg/dL Creatinine 0.7 (0.6-1.1) mg/dL Glucose 132 H (70-105) mg/dL Calcium 10.7 H (8.6-10.4) mg/dL Adrenal panel 08/24/21 Range/Units 15:49 Sodium 131 L (133-145) mmol/L Potassium 3.3 (3.3-5.1) mmol/L Chloride 94 L (96-108) mmol/L Carbon Dioxide 24 (22-30) mmol/L BUN 14 (8-23) mg/dL Creatinine 0.7 (0.6-1.1) mg/dL Glucose 132 H (70-105) mg/dL Calcium 10.7 H (8.6-10.4) mg/dL Total Bilirubin 0.2 (0.1-1.0) mg/dL AST 20 (<32) U/L ALT 8 (<40) U/L Alkaline Phosphatase 270 H (39-117) U/L Total Protein 7.3 (5.9-8.4) gm/dL Albumin 3.8 (3.2-5.2) gm/dL All other labs normal. A/P Narrative A/P Narrative: Intra abdominal fluid collections These may well be abscesses but with a normal WBC and absence of fever ? sterile Hypercoagulable secondary to Coumadin Apparent progressive Stage IV metastatic colon cancer with possible hepatic and pulmonary mets. It's not clear to me if biopsy confirmation has been obtained but my understanding is that decision had been made to not proceed with any additional work up or therapy She doesn't appear septic and there is no evidence of partial or complete bowel obstruction on CT. I would favor initiating IV ABs and moving towards a plan to percutaneously drain and/or aspirate the fluid collections with normalization of her INR followed by Image Guided Perc Drain placement with radiology. Any open operative intervention would be strongly avoided given what likely would be a fairly hostile intra abdominal situation given past adhesions, infection, etc. Plan discussed at length with her and her family as well as other involved providers and all are in agreement. Time Spent With Patient Time: Total time spent is greater than 50% in coordination of care (as documented) at patient's floor/unit and/or counseling patient:
[2021-08-25 09:08] LABS: Basophils # (Auto) 0.02 K/mcL (0.00-0.30); Basophils % (Auto) 0.3 % (0.0-2.0); Eosinophils # (Auto) 0.15 K/mcL (0.00-0.70); Eosinophils % (Auto) 2.1 % (0.0-7.0); Hematocrit 31.1 % (34.1-44.9); Lymphocytes # (Auto) 0.76 K/mcL (1.50-4.80); Lymphocytes % (Auto) 10.5 % (15.5-49.0); Mean Cell Volume 69.7 fL (80.0-100.0); Mean Corpuscular HGB Conc 28.9 g/dL (31.0-36.0); Mean Platelet Volume 10.8 fL (7.4-10.4); Monocytes # (Auto) 0.73 K/mcL (0.10-0.90); Monocytes % (Auto) 10.1 % (1.0-12.0); Platelet Count 330 K/mcL (140-440); RBC 4.46 M/mcL (3.59-5.38); Red Cell Distribution Width 17.3 % (11.5-14.5); WBC 7.3 K/mcL (4.5-11.0)
[2021-08-25 09:29] LABS: ALT/SGPT 8 U/L (<40); AST/SGOT 16 U/L (<32); Albumin 3.3 gm/dL (3.2-5.2); Albumin/Globulin Ratio 1.1 (1.0-2.3); Alkaline Phosphatase 223 U/L (39-117); Bilirubin,Total 0.4 mg/dL (0.1-1.0); Blood Urea Nitrogen 12 mg/dL (8-23); Calcium 9.4 mg/dL (8.6-10.4); Carbon Dioxide 25 mmol/L (22-30); Chloride 98 mmol/L (96-108); Glomerular Filtration Rate 71; Glucose 108 mg/dL (70-105)
--- NOTE | 2021-08-25 09:32 | General Surgery Progress Note ---
SUBJECTIVE Subjective Patient information: Note initiated : 08/25/21 at 9:27 am Service Date, if different from initiated Date: [] Patient: Annie Gomez a 76 y/o F admitted on 08/25/21 for Intra abdominal abscess Chief Complaint: [Intra abdominal fluid collection and pain Annie reports feeling ok this am. No major changes overnight ] Constitutional Vitals: Vital Signs Temp Pulse Resp BP Pulse Ox 97 F 55 L 14 127/59 95 08/25/21 07:50 08/25/21 07:50 08/25/21 07:50 08/25/21 07:50 08/25/21 07:50 Period Temp Pulse Resp BP Sys/Cuevas Pulse Ox Last 24 Hr 96.9 F-98.2 F 52-74 14-18 83-191/54-159 90-96 Intake and Output 08/24/21 08/25/21 08/25/21 21:59 05:59 13:59 Intake Total 1000 101 50 Output Total 200 300 Balance 1000 -99 -250 Weight 168 lb 168 lb Intake & Output: Intake & Output 08/24/21 08/25/21 08/25/21 21:59 05:59 13:59 Intake Total 1000 101 50 Output Total 200 300 Balance 1000 -99 -250 Weight 168 lb 168 lb Intake: IV 1000 101 50 Sodium Chloride 0.9% 1,000 ml @ 1000 Wide Open IV BOLUS ONE Rx#: [id number] Aquamephyton 10 mg In Sodium 51 Chloride 0.9% 50 ml @ 50 mls/hr IV ONCE ONE Rx#:[id number] Zosyn 3.375 gm In Dextrose 5% 50 50 in Water 50 ml @ 100 mls/hr IV Q6H [facility] Rx#:[id number] Output: Void Amount 200 300 Other: Urine Appearance Clear Urine Color Bright Yellow General appearance: no acute distress Exam: she looks well and comfortable Respiratory Additional comments: no evident respiratory distress Cardiovascular Additional comments: RRR GI/Abdominal Additional comments: remains soft and mildly tender, non focal and no peritoneal findings A/P Assessment and plan (1) Abscess of abdominal cavity: Status: Acute Narrative A/P Narrative: Clinically stable and doing reasonably well overall AM INR remains high at 7 Agree with continued normalization of INR to less than 2 for planned percutaneous drainage No operative indications at this time Time Spent With Patient Time: Total time spent is greater than 50% in coordination of care (as documented) at patient's floor/unit and/or counseling patient:
[2021-08-25 09:42] LABS: Prothrombin Time 23.4 sec (11.9-14.5)
[2021-08-25] MEDS: SERTRALINE 50 MG TABLET PO SCH (10:43)
[2021-08-25] MEDS: busPIRone 5 MG TABLET PO SCH ×2 (10:43→20:53)
[2021-08-25] MEDS: HYDROCHLOROTHIAZIDE 25 MG TABLET PO SCH (10:44)
[2021-08-25] MEDS: SOTALOL 80 MG TABLET PO SCH (10:44)
[2021-08-25] MEDS: METOPROLOL SUCCINATE 25 MG TAB.XL.24H PO SCH (10:45)
[2021-08-25] MEDS: DOCUSATE SODIUM 100 MG CAPSULE PO SCH ×2 (10:45→20:55)
[2021-08-25] MEDS: LOSARTAN 50 MG TABLET PO SCH (10:45)
[2021-08-25] MEDS: FLUTICASONE PROPIONATE SPRAY.NAS NS SCH (10:46)
[2021-08-25] MEDS: NYSTATIN 500,000 UNITS/5 ML ORAL.SUSP SSP SCH ×2 (12:00→12:02)
--- NOTE | 2021-08-25 13:02 | Internal Med Progress Note ---
SUBJECTIVE Subjective Patient information: Note initiated : 08/25/21 at 12:56 pm Service Date, if different from initiated Date: [] Patient: Annie Gomez a 76 y/o F admitted on 08/25/21 for Concern for bowel blockage.. Chief Complaint: [abdominal pain, pericolonic abscesses] Interval history: History of present illness: Ms. Gomez is a 76 year old F history of metastatic adenocarcinoma of cecum, atrial fibrillation, presenting with worsening abdominal pain. Patient was being diagnosed with adenocarcinoma of cecum status post colectomy by Dr. Melendrez in March 2021. It was complicated by pericolonic abscess in May and the abscess was drained by general surgeons Dr. Walsh in May 2021. Patient come to the ER today due to worsening abdominal pain. She is currently company of 6 out of 10, sharp and pressure-like, constant diffuse abdominal pain. She is also committing of nausea and vomiting with 2 episodes of vomit 2 days ago. She is also committing of constipation for a few days until she finally had a small bowel movement yesterday. She is also complained of general body weakness. She is also committing of decreasing appetite. She denies any fever or chills. CT abdomen pelvis with contrast this evening showing multiple pericolonic abscess with the largest one measuring 7.5 cm. The scan also showing multiple lung and liver metastases. INR elevated to 8.5. 08/25: s/p Vitamin K 10mg IV. INR 8.5-->2.0, Afebrile overnight. c/o 6/10 diffused abdominal pain. c/o nausea and constipation, denies vomiting. c/o general body weakness. Constitutional Vitals: Vital Signs Temp Pulse Resp BP Pulse Ox 36.2 C 63 16 125/61 93 08/25/21 11:48 08/25/21 11:48 08/25/21 11:48 08/25/21 11:48 08/25/21 11:48 Period Temp Pulse Resp BP Sys/Cuevas Pulse Ox Last 24 Hr 36.1 C-36.8 C 52-74 14-18 83-191/54-159 90-96 Intake and Output 08/24/21 08/25/21 08/25/21 21:59 05:59 13:59 Intake Total 1000 101 50 Output Total 200 300 Balance 1000 -99 -250 Weight 76.204 kg 76.204 kg Intake & Output: Intake & Output 08/24/21 08/25/21 08/25/21 21:59 05:59 13:59 Intake Total 1000 101 50 Output Total 200 300 Balance 999250 Weight 76.204 kg 76.204 kg Intake: IV 1000 101 50 Sodium Chloride 0.9% 1,000 ml @ 1000 Wide Open IV BOLUS ONE Rx#: [id number] Aquamephyton 10 mg In Sodium 51 Chloride 0.9% 50 ml @ 50 mls/hr IV ONCE ONE Rx#:[id number] Zosyn 3.375 gm In Dextrose 5% 50 50 in Water 50 ml @ 100 mls/hr IV Q6H [facility] Rx#:[id number] Output: Void Amount 200 300 Other: Urine Appearance Clear Urine Color Bright Yellow General appearance: cooperative and no acute distress Head Head exam: Present atraumatic and normocephalic Eye Eye exam: Present EOMI and PERRL ENT ENT exam: Present mucous membranes moist, normal exam and normal external ear exam Neck Neck exam: Present normal inspection; Absent lymphadenopathy, tenderness and thyromegaly Respiratory Respiratory exam: Absent accessory muscle use, respiratory distress and wheezes Cardiovascular Cardiovascular exam: Present irregular rhythm; Absent JVD GI/Abdominal GI/Abdominal exam: Present distended, firm, hypoactive bowel sounds, mass, organomegaly and tenderness Extremities Exam Extremities exam: Present full ROM, normal capillary refill and normal inspection; Absent tenderness Neurological Exam Neurological exam: Present alert, CN II-XII intact and oriented X3; Absent motor sensory deficit Psychiatric Psychiatric exam: Present normal affect and normal mood; Absent anxious and depressed Skin Skin exam: Present dry and intact OBJ DATA Labs CBC & Chem 7: 08/25/21 05:56 08/25/21 05:56 Labs: Abnormal Lab Results 08/25/21 08/25/21 08/25/21 05:57 05:56 05:56 Hgb 9.0 L Hct 31.1 L POC Hct MCV 69.7 L MCH 20.2 L MCHC 28.9 L RDW 17.3 H MPV 10.8 H Lymph % (Auto) 10.5 L Lymph # (Auto) 0.76 L PT 23.4 H INR 2.0 H Sodium Potassium 3.2 L Chloride Glucose 108 H POC Glucose Calcium Alkaline Phosphatase 223 H 0908/24/21 08/24/21 00:55 19:01 15:49 Hgb Hct POC Hct 35 L MCV MCH MCHC RDW MPV Lymph % (Auto) Lymph # (Auto) PT 68.3 H 73.5 H INR 7.7 H* 8.5 H* Sodium 131 L Potassium Chloride 94 L Glucose 132 H POC Glucose 137 H Calcium 10.7 H Alkaline Phosphatase 270 H 08/24/21 15:49 Hgb 10.2 L Hct 33.2 L POC Hct MCV 67.8 L MCH 20.8 L MCHC 30.7 L RDW 17.3 H MPV Lymph % (Auto) 12.3 L Lymph # (Auto) 0.99 L PT INR Sodium Potassium Chloride Glucose POC Glucose Calcium Alkaline Phosphatase Meds: Medications Acetaminophen (Acetaminophen 325 Mg Tablet) 650 mg PO Q6HP PRN; Protocol PRN Reason: Per Pain Protocol/Fever > 101 Hydrocodone Bitart/Acetaminophen (Hydrocodone/Apap 7.5/325mg Tablet) 1 tab PO Q6HP PRN; Protocol PRN Reason: Per Pain Protocol Albuterol Sulfate (Albuterol Sulfate 200 Puff Inhaler) 2 puff INH Q4-6HP PRN PRN Reason: shortness of breath or wheezin Buspirone HCl (Buspirone 5 Mg Tablet) 5 mg PO BID [facility] Last Admin: 08/25/21 10:43 Dose: 5 mg Documented by: Diphenoxylate HCl/Atropine (Diphenoxylate Hcl/Atropine 1 Tablet) 1 tab PO Q4HP PRN PRN Reason: diarrhea Docusate Sodium (Docusate Sodium 100 Mg Capsule) 100 mg PO BID [facility] Last Admin: 08/25/21 10:45 Dose: Not Given Documented by: Fluticasone Propionate (Fluticasone Propionate [place]) 1 spray NS DAILY [facility] Last Admin: 08/25/21 10:46 Dose: Not Given Documented by: Hydrochlorothiazide (Hydrochlorothiazide 25 Mg Tablet) 25 mg PO DAILY [facility] Last Admin: 08/25/21 10:44 Dose: 25 mg Documented by: Hydromorphone HCl (Hydromorphone 1 Mg/Ml Syringe) 1 mg IV Q2HP PRN; Protocol PRN Reason: Per Pain Protocol Sodium Chloride (Sodium Chloride 0.9%) 1,000 mls @ 100 mls/hr IV .Q10H [facility] Last Admin: 08/25/21 00:45 Dose: 100 mls/hr Documented by: Piperacillin Sod/Tazobactam (Sod 3.375 gm/ Dextrose) 50 mls @ 100 mls/hr IV Q6H [facility]; Protocol Last Infusion: 08/25/21 06:11 Dose: Infused Documented by: Phytonadione 10 mg/ Sodium (Chloride) 51 mls @ 50 mls/hr IV ONCE ONE Stop: 08/25/21 10:07 Losartan Potassium (Losartan 50 Mg Tablet) 100 mg PO DAILY [facility] Last Admin: 08/25/21 10:45 Dose: 100 mg Documented by: Metoprolol Succinate (Metoprolol Succinate 25 Mg Tab.Xl.24h) 25 mg PO DAILY [facility] Last Admin: 08/25/21 10:45 Dose: 25 mg Documented by: Nystatin (Nystatin 500,000 Units/5 Ml Oral.Susp) 500,000 units SSP QID [facility] Last Admin: 08/25/21 12:02 Dose: Not Given Documented by: Ondansetron HCl (Ondansetron 4 Mg/2 Ml Vial) 4 mg IV Q6HP PRN PRN Reason: Nausea And Vomiting Last Admin: 08/25/21 08:21 Dose: 4 mg Documented by: Senna (Sennosides 1 Tablet) 2 tab PO [facility] Sertraline HCl (Sertraline 50 Mg Tablet) 50 mg PO DAILY [facility] Last Admin: 08/25/21 10:43 Dose: 50 mg Documented by: Sodium Chloride (0.9 % Sodium Chloride 10 Ml Syringe) 10 ml IV Q8 [facility] Last Admin: 08/25/21 04:31 Dose: Not Given Documented by: Sotalol HCl (Sotalol 80 Mg Tablet) 80 mg PO [facility] Sotalol HCl (Sotalol 80 Mg Tablet) 40 mg PO DAILY [facility] Last Admin: 08/25/21 10:44 Dose: 40 mg Documented by: A/P Assessment and plan (1) Coagulopathy: Status: Acute (2) Abscess of abdominal cavity: Status: Acute (3) Abscess of abdominal cavity: Status: Acute (4) Adenocarcinoma of cecum: Status: Acute (5) Atrial fibrillation: Status: Chronic Qualifiers: Atrial fibrillation type: longstanding persistent Qualified Code(s): I48.11 - Longstanding persistent atrial fibrillation (6) Hypertension: Status: Chronic Qualifiers: Hypertension type: essential hypertension Qualified Code(s): I10 - Essential (primary) hypertension Narrative A/P Narrative: Assessment and plan: 1. Metastatic cecal adenocarcinoma with pericolonic abscesses: Stays in observation MedSurg INR this morning is 2.0. I spoke with interventional radiologist who felt comfortable of performing percutaneous abscess drainage today N.p.o. for now in preparation of the formation procedures and will resume regular diet after the procedures Braymer and oxycodone as needed moderate pain Dilaudid IV as needed breakthrough and severe pain Switch to IV antibiotics Zosyn for empiric antibiotics Keep the patient's overnight for observations after the procedures and for continued pain control and can consider discharge patient home as soon as tomorrow 2. Coagulopathy with elevated INR 8.5: Status post IV vitamin K administration on August 24, INR improved from 8.5- 2.0. Hold Coumadin for the time being #3 atrial fibrillation's: Continue beta-lorraine for rate control Hold Coumadin Status post IV vitamin K administration on August 24, INR improved from 8.5- 2.0. #4 anemia, Microcytic hypochromic: CBC with auto differential in the morning to trend hemoglobin and hematocrit and transfuse PRBC if hemoglobin is less than 7.0, active bleeding, or if the patient becomes symptomatic #5 essential hypertension: Currently normotensive Continue hydrochlorothiazide, metoprolol succinate, and losartan GI prophylaxis: Not currently indicated DVT prophylaxis: SCDs CODE STATUS: Full code Prognosis: Guarded Disposition: Observation MedSurg Time Spent With Patient Time: Total time spent is greater than 50% in coordination of care (as documented) at patient's floor/unit and/or counseling patient: Total time spent with greater than 50% in coordination of care (as documented) at patient's floor/unit and/or counseling patient:: 25 - 35 minutes QUALITY VTE Deep Vein Thrombosis/Pulmonary Embolism Present on Admission: No
[2021-08-25] MEDS ORDERED: fentaNYL 100 MCG/2 ML VIAL IV ONE (14:17)
[2021-08-25] MEDS ORDERED: MIDAZOLAM 5 MG/5 ML VIAL IV ONE (14:17)
[2021-08-25] MEDS ORDERED: MIDAZOLAM 2 MG/2 ML VIAL IV ONE (14:30)
[2021-08-25] MEDS: HYDROCODONE/APAP 7.5/325MG TABLET PO PRN ×2 (14:47→20:54)
--- NOTE | 2021-08-25 15:04 | Cat Scan Report ---
CLINICAL INFORMATION: Right pericolonic abscess versus tumor. COMPARISON: None. TECHNIQUE: The procedure and risks including possibility of bleeding, infection and inadequate fluid tissue were explained to the patient. She understood and wished to proceed. She was medicated with Versed and fentanyl intravenously prior to, and during, the procedure. Please see medication sheet for dosages. Blood pressure and pulse symmetry were monitored. Total procedure time 30 minutes. The patient in supine position, the fluid collection/mass in the right pericolonic region was first CT localized. The skin overlying the lesion was marked, prepped and locally anesthetized 1% lidocaine using a 25-gauge needle. A 17-gauge styletted needle was then advanced into the center of the lesion. The stylette was removed, but no fluid could be aspirated. The needle was moved slightly in attempt to aspirate fluid, but this was unsuccessful. It was concluded that the lesion was solid-likely carcinomatosis. A 17-gauge Temno needle was then used under CT guidance into the lesion and 18-gauge Temno needle was used to obtain four core passes. The tissue samples were sent in formalin to pathology. The needle was washed in normal sterile saline between each pass. Postprocedure scanning shows no hemorrhage or other complication. Patient tolerated procedure well. IMPRESSION: CT-guided core biopsy of solid mass in the right pericolonic region. No fluid could be aspirated thus the lesion appears to be solid and not an abscess. Presumably, this represents carcinomatosis. Pathology pending Interpreted and Authenticated by: Timothy George 08/25/21
[2021-08-25] MEDS: POTASSIUM CHLORIDE 20 MEQ TABLET PO SCH (20:53)
[2021-08-25] MEDS ORDERED: SENNOSIDES 1 TABLET PO SCH (21:00)
[2021-08-25] MEDS ORDERED: SOTALOL 80 MG TABLET PO SCH (21:00)
[2021-08-26] MEDS: 0.9 % SODIUM CHLORIDE 1,000 ML IV SCH ×3 (02:08→16:57)
[2021-08-26] MEDS: PIPERACILLIN SODIUM/TAZOBACTAM 3.375 GM in DEXTROSE 5% IN WATER 50 ML IV SCH ×2 (05:39→11:41)
[2021-08-26] MEDS: 0.9 % SODIUM CHLORIDE 10 ML SYRINGE IV SCH ×2 (05:40→14:52)
[2021-08-26 07:18] LABS: Basophils # (Auto) 0.01 K/mcL (0.00-0.30); Basophils % (Auto) 0.2 % (0.0-2.0); Eosinophils # (Auto) 0.21 K/mcL (0.00-0.70); Eosinophils % (Auto) 3.2 % (0.0-7.0); Hematocrit 28.6 % (34.1-44.9); Hemoglobin 8.7 g/dL (11.2-15.7); Lymphocytes # (Auto) 0.92 K/mcL (1.50-4.80); Mean Cell Volume 68.1 fL (80.0-100.0); Mean Corpuscular HGB Conc 30.4 g/dL (31.0-36.0); Mean Platelet Volume 10.9 fL (7.4-10.4); Monocytes # (Auto) 0.89 K/mcL (0.10-0.90); Monocytes % (Auto) 13.5 % (1.0-12.0); Neutrophils % (Auto) 69.1 % (38.0-78.0); Platelet Count 286 K/mcL (140-440); Red Cell Distribution Width 17.1 % (11.5-14.5); WBC 6.6 K/mcL (4.5-11.0)
[2021-08-26 07:21] LABS: INR 1.2 (0.9-1.1); Prothrombin Time 15.4 sec (11.9-14.5)
[2021-08-26 08:06] LABS: ALT/SGPT 7 U/L (<40); AST/SGOT 15 U/L (<32); Albumin 3.1 gm/dL (3.2-5.2); Albumin/Globulin Ratio 1.1 (1.0-2.3); Alkaline Phosphatase 206 U/L (39-117); Bilirubin,Total 0.4 mg/dL (0.1-1.0); Blood Urea Nitrogen 6 mg/dL (8-23); Calcium 9.1 mg/dL (8.6-10.4); Carbon Dioxide 26 mmol/L (22-30); Chloride 98 mmol/L (96-108); Globulin 2.8 gm/dL (2.2-3.7); Glomerular Filtration Rate 83; Glucose 93 mg/dL (70-105)
[2021-08-26] MEDS: FLUTICASONE PROPIONATE SPRAY.NAS NS SCH (08:50)
[2021-08-26] MEDS: ONDANSETRON 4 MG/2 ML VIAL IV PRN (08:56)
[2021-08-26] MEDS: HYDROCODONE/APAP 7.5/325MG TABLET PO PRN (10:04)
--- NOTE | 2021-08-26 11:17 | EKG ---
[facility] Test Date: 2021-08-24 Pat Name: Annie Gomez Department: ED Room: Gender: Female Ibm Bpm Developer: sb : 1945 Requested By: Love Jaevd Order Number: [id number] Reading MD: Jose Mixon Measurements Intervals [place] Rate: 63 P: -23 HI: 148 QRS: 4 QRSD: 92 T: 27 QT: 470 QTc: 482 Interpretive Statements Sinus rhythm Electronically Signed On 08-26-2021 11:17:45 PDT by Jose Mixon /store/[email or web address]/[id number]/[id number]
[2021-08-26] MEDS: busPIRone 5 MG TABLET PO SCH (11:18)
[2021-08-26] MEDS: POTASSIUM CHLORIDE 20 MEQ TABLET PO SCH ×2 (11:18→16:57)
[2021-08-26] MEDS: DOCUSATE SODIUM 100 MG CAPSULE PO SCH (11:18)
[2021-08-26] MEDS: LOSARTAN 50 MG TABLET PO SCH (11:19)
[2021-08-26] MEDS: METOPROLOL SUCCINATE 25 MG TAB.XL.24H PO SCH (11:19)
[2021-08-26] MEDS: SERTRALINE 50 MG TABLET PO SCH (11:20)
[2021-08-26] MEDS: SOTALOL 80 MG TABLET PO SCH (11:20)
[2021-08-26] MEDS: HYDROCHLOROTHIAZIDE 25 MG TABLET PO SCH (11:20)
--- NOTE | 2021-08-26 11:32 | General Surgery Progress Note ---
SUBJECTIVE Subjective Patient information: Note initiated : 08/26/21 at 11:26 am Service Date, if different from initiated Date: [] Patient: Annie Gomez 76 y/o F admitted on 08/25/21 for Concern for bowel blockage.. Chief Complaint: [Admitted with abdominal pain and concern for intra abdominal fluid collections/abscesses] She feels well this am, passing gas without issue, had some pain earlier that has largely resolved. Attempt at aspiration yesterday noted - found to be solid ? mass, core needle biopsies taken and pending Constitutional Vitals: Vital Signs Temp Pulse Resp BP Pulse Ox 98.1 F 75 18 140/71 94 08/26/21 11:08 08/26/21 11:08 08/26/21 11:08 08/26/21 11:08 08/26/21 11:08 Period Temp Pulse Resp BP Sys/Cuevas Pulse Ox Last 24 Hr 97.2 F-98.3 F 63-75 16-18 115-153/58-73 92-95 Intake and Output 08/25/21 08/26/21 08/26/21 21:59 05:59 13:59 Intake Total 100 1250 50 Output Total 300 500 410 Balance -200 750 -360 Weight 173 lb 12.8 oz Intake & Output: Intake & Output 08/25/21 08/26/21 08/26/21 21:59 05:59 13:59 Intake Total 100 1250 50 Output Total 300 500 410 Balance -200 750 -360 Weight 173 lb 12.8 oz Intake: IV 100 1050 50 Sodium Chloride 0.9% 1,000 ml @ 1000 100 mls/hr IV .Q10H [facility] Rx#: [id number] Zosyn 3.375 gm In Dextrose 5% 100 50 50 in Water 50 ml @ 100 mls/hr IV Q6H [facility] Rx#:[id number] Oral 200 Output: Void Amount 300 500 410 Other: Urine Appearance Clear Clear Clear Urine Color Bright Yellow Bright Yellow Dark Yellow Urine Odor Normal Normal Stool Size Small Stool Color Brown Stool Consistency Formed # Emeses 0 General appearance: no acute distress Exam: she seems pleasant and comfortable this am without distress GI/Abdominal Additional comments: belly is soft and non focal, remains minimally tender without evidence of guarding or any peritoneal findings A/P Narrative A/P Narrative: Clinical presentation more consistent now with intra abdominal mass/tumor rather than abscess Biopsy results pending Recommend advancing to home diet with pain control and discharge if doing well She appears to have progressive disease and palliative care input would be helpful for her ongoing management Time Spent With Patient Time: Total time spent is greater than 50% in coordination of care (as documented) at patient's floor/unit and/or counseling patient:
[2021-08-26] MEDS ORDERED: MAGNESIUM SULFATE 8.12 MEQ/2 ML VIAL IV ONE (13:01)
[2021-08-26] MEDS ORDERED: POTASSIUM CHLORIDE 20 MEQ TABLET PO ONE (13:02)
--- NOTE | 2021-08-26 13:09 | Discharge Summary ---
Discharge Provider Provider Patient information: Note initiated : 08/26/21 at 1:03 pm Service Date, if different from initiated Date: [] Patient: Annie Gomez a 76 y/o F admitted on 08/25/21 for Concern for bowel blockage.. Chief Complaint: [abdominal pain from pericolonic abscess] History of present illness: Ms. Gomez is a 76 year old F history of metastatic adenocarcinoma of cecum, atrial fibrillation, presenting with worsening abdominal pain. Patient was being diagnosed with adenocarcinoma of cecum status post colectomy by Dr. Melendrez in March 2021. It was complicated by pericolonic abscess in May and the abscess was drained by general surgeons Dr. Walsh in May 2021. Patient come to the ER today due to worsening abdominal pain. She is currently company of 6 out of 10, sharp and pressure-like, constant diffuse abdominal pain. She is also committing of nausea and vomiting with 2 episodes of vomit 2 days ago. She is also committing of constipation for a few days until she finally had a small bowel movement yesterday. She is also complained of general body weakness. She is also committing of decreasing appetite. She denies any fever or chills. CT abdomen pelvis with contrast this evening showing multiple pericolonic abscess with the largest one measuring 7.5 cm. The scan also showing multiple lung and liver metastases. INR elevated to 8.5. Date of admission: 08/25/21 00:01 Discharge date: 08/26/21 Primary care physician: Jarocho Ricardo MD Consults: 08/24/21 Consult to Physician [CONS] Stat Comment: Consulting Provider: Panda Rousseau Reason For Exam: Physician to Consult Discharge Meds Discharge Medications Home Medications warfarin 5 mg tablet See Rx Instructions PO DAILY 09/14/20 [History Confirmed 08/22/21 Last Taken 04/14/21] albuterol sulfate 90 mcg/actuation aerosol inhaler 2 puff INHALATION .COMPLEX PRN #18 g 12/22/20 [Rx Confirmed 08/22/21 Last Taken 03/18/21] hydrocodone 7.5 mg-acetaminophen 325 mg tablet 1 tab PO Q6H PRN #120 tab 03/12/21 [Rx Confirmed 08/22/21 Last Taken 04/16/21] losartan 100 mg-hydrochlorothiazide 25 mg tablet 1 tab PO QDAY #90 tab 04/02/21 [Rx Confirmed 08/22/21 Last Taken 05/13/21 09:00] sertraline 50 mg PO DAILY 04/13/21 [History Confirmed 08/22/21 Last Taken 05/12/21 09:00] acetaminophen [Tylenol] 650 mg PO Q6HP PRN #60 tab 04/25/21 [Rx Confirmed 08/22/21 Last Taken Unknown] oxycodone 5 mg PO Q4HP PRN #5 tab 04/25/21 [Rx Confirmed 08/22/21 Last Taken 05/13/21] fluticasone propionate 1 spray INTRANASAL DAILY 05/14/21 [History Confirmed 08/22/21 Last Taken Unknown] metoprolol succinate 25 mg PO DAILY 05/14/21 [History Confirmed 08/22/21 Last Taken 05/13/21 25 mg] sotalol 40 mg PO DAILY 05/14/21 [History Confirmed 08/22/21 Last Taken Unknown] sotalol 80 mg PO HS 05/14/21 [History Confirmed 08/22/21 Last Taken Unknown] ciprofloxacin HCl 500 mg PO BID #30 tab 05/20/21 [Rx Confirmed 08/22/21 Last Taken Unknown] metronidazole 500 mg PO TID #40 tab 05/20/21 [Rx Confirmed 08/22/21 Last Taken Unknown] diphenoxylate-atropine 2.5 mg-0.025 mg tablet 1 tab PO Q4H PRN #30 tab 05/22/21 [Rx Confirmed 08/22/21 Last Taken Unknown] potassium chloride 10 mEq capsule,extended release See Rx Instructions .ROUTE .COMPLEX #90 cap 07/05/21 [Rx Confirmed 08/22/21 Last Taken Unknown] buspirone 5 mg tablet 5 mg PO BID #60 tab 07/18/21 [Rx Confirmed 08/22/21 Last Taken Unknown] acetaminophen 120 mg-codeine 12 mg/5 mL oral solution 5 ml PO Q6H PRN #118 ml 08/17/21 [Rx Confirmed 08/22/21 Last Taken Unknown] docusate sodium [DOK] 100 mg PO BID #20 cap 08/26/21 [Rx Last Taken Unknown] magnesium 250 mg PO QDAY #14 tab 08/26/21 [Rx Last Taken Unknown] potassium chloride [Klor-Con M20] 20 meq PO BIDCC 14 Days #28 tab 08/26/21 [Rx Last Taken Unknown] tramadol 50 mg PO Q8H PRN #20 tab 08/26/21 [Rx Last Taken Unknown] COURSE Hospital Course Hospital course: Patient was admitted on August 24, 2021 for abdominal pain secondary to recurrent pericolic abscess. Patient has been diagnosed with cecal cancer with recurrent giselle-Colonic abscess. Vitamin K was being given to revert her coagulopathy and INR went from 8.5-2.0. General surgery and interventional radiologist were also consulted and radiologist agreed to performed abscess percutaneous aspiration on August 25, 2021. The aspirate was solid and not pustular in nature hence its more likely to be cancer metastasis then bacterial infections. Pain control was achieved with narcotics provided while patient was in the hospital. Patient is remained clinically stable and by August 26, 2021, the decision was made to discharge patient home with prescriptions given or sent to pharmacy, all questions answer prior to patient being physically discharged, and instructions to follow-up with PCP given. Oncology referral should also be sent by PCP. Discharge diagnosis: pericolonic abscess Time Spent with Patient Time attestation: Total time spent providing and/or coordinating discharge services: Patient was admitted on August 24, 2021 for abdominal pain secondary to recurrent pericolic abscess. Patient has been diagnosed with cecal cancer with recurrent giselle-Colonic abscess. Vitamin K was being given to revert her coagulopathy and INR went from 8.5-2.0. General surgery and interventional radiologist were also consulted and radiologist agreed to performed abscess percutaneous aspiration on August 25, 2021. The aspirate was solid and not pustular in nature hence its more likely to be cancer metastasis then bacterial infections. Pain control was achieved with narcotics provided while patient was in the hospital. Patient is remained clinically stable and by August 26, 2021, the decision was made to discharge patient home with prescriptions given or sent to pharmacy, all questions answer prior to patient being physically discharged, and instructions to follow-up with PCP given. Oncology referral should also be sent by PCP. EXAM Constitutional Vitals: Temp Pulse Resp BP Pulse Ox 36.7 C 75 18 140/71 94 08/26/21 11:08 08/26/21 11:08 08/26/21 11:08 08/26/21 11:08 08/26/21 11:08 General appearance: cooperative Head Head exam: Present atraumatic and normocephalic Eye Eye exam: Present EOMI and PERRL ENT ENT exam: Present mucous membranes moist, normal exam and normal external ear exam Neck Neck exam: Present normal inspection; Absent lymphadenopathy, tenderness and thyromegaly Respiratory Respiratory exam: Absent accessory muscle use, respiratory distress and wheezes Cardiovascular Cardiovascular exam: Present normal rate and rhythm; Absent JVD GI/Abdominal GI/Abdominal exam: Present normal bowel sounds, distended, mass, organomegaly and tenderness Extremities Exam Extremities exam: Present full ROM, normal capillary refill and normal inspection; Absent tenderness Neurological Exam Neurological exam: Present alert, CN II-XII intact and oriented X3; Absent motor sensory deficit Psychiatric Psychiatric exam: Present normal affect and normal mood; Absent anxious and depressed Skin Skin exam: Present dry and intact Discharge Data Data Completed and Pending Labs on day of discharge: Labs from last 24 hours 08/26/21 08/26/21 08/26/21 05:55 05:54 05:54 WBC RBC Hgb Hct MCV MCH MCHC RDW Plt Count MPV Neut % (Auto) Lymph % (Auto) Mason % (Auto) Eos % (Auto) Baso % (Auto) Lymph # (Auto) Mason # (Auto) Eos # (Auto) Baso # (Auto) Absolute Neutrophils PT 15.4 H INR 1.2 H Sodium 137 Potassium 2.9 L* Chloride 98 Carbon Dioxide 26 Anion Gap 13.0 BUN 6 L Creatinine 0.7 GFR Calculation 83 Glucose 93 Calcium 9.1 Magnesium 1.2 L Total Bilirubin 0.4 AST 15 ALT 7 Alkaline Phosphatase 206 H Total Protein 5.9 Albumin 3.1 L Globulin 2.8 Albumin/Globulin Ratio 1.1 08/26/21 05:54 WBC 6.6 RBC 4.20 Hgb 8.7 L Hct 28.6 L MCV 68.1 L MCH 20.7 L MCHC 30.4 L RDW 17.1 H Plt Count 286 MPV 10.9 H Neut % (Auto) 69.1 Lymph % (Auto) 14.0 L Mason % (Auto) 13.5 H Eos % (Auto) 3.2 Baso % (Auto) 0.2 Lymph # (Auto) 0.92 L Mason # (Auto) 0.89 Eos # (Auto) 0.21 Baso # (Auto) 0.01 Absolute Neutrophils 4.56 PT INR Sodium Potassium Chloride Carbon Dioxide Anion Gap BUN Creatinine GFR Calculation Glucose Calcium Magnesium Total Bilirubin AST ALT Alkaline Phosphatase Total Protein Albumin Globulin Albumin/Globulin Ratio Preliminary micro results at discharge 08/25/21 01:00 Blood Culture - Preliminary Blood 08/25/21 00:55 Blood Culture - Preliminary Blood Discharge Plan Patient/Caregiver Discharge Instructions Activity: increase activity as tolerated Diet: Regular Diet Prescriptions: New potassium chloride [Klor-Con M20] 20 mEq Tablet,Er Particles/Crystals 20 meq PO BIDCC 14 Days Qty: 28 RF: 0 magnesium 250 mg tablet 250 mg PO QDAY Qty: 14 RF: 0 docusate sodium [DOK] 100 mg capsule 100 mg PO BID Qty: 20 RF: 0 tramadol 50 mg tablet 50 mg PO Q8H PRN (Reason: pain) Qty: 20 RF: 0 Continued hydrocodone-acetaminophen 7.5-325 mg tablet 1 tab PO Q6H PRN (Reason: pain) Qty: 120 RF: 0 losartan-hydrochlorothiazide 100-25 mg tablet 1 tab PO QDAY Qty: 90 RF: 3 diphenoxylate-atropine [Lomotil] 2.5-0.025 mg tablet 1 tab PO Q4H PRN (Reason: diarrhea) Qty: 30 RF: 0 potassium chloride 10 mEq capsule, extended release See Rx Instructions .ROUTE .COMPLEX Qty: 90 RF: 0 buspirone 5 mg tablet 5 mg PO BID Qty: 60 RF: 6 acetaminophen-codeine 120-12 mg/5 mL solution 5 ml PO Q6H PRN (Reason: cancer pain) Qty: 118 RF: 0 albuterol sulfate [Ventolin HFA] 90 mcg/actuation HFA aerosol inhaler 2 puff INHALATION .COMPLEX PRN (Reason: shortness of breath or wheezing) Qty: 18 RF: 2 warfarin 5 mg tablet See Rx Instructions PO DAILY RF: 0 sertraline 50 mg tablet 50 mg PO DAILY RF: 0 acetaminophen [Tylenol] 325 mg Tablet 650 mg PO Q6HP PRN (Reason: pain) Qty: 60 RF: 0 oxycodone 5 mg Tablet 5 mg PO Q4HP PRN (Reason: Per Pain Protocol) Qty: 5 RF: 0 metoprolol succinate 25 mg tablet extended release 24 hr 25 mg PO DAILY RF: 0 fluticasone propionate 50 mcg/actuation spray,suspension 1 spray INTRANASAL DAILY RF: 0 sotalol 80 mg Tablet 80 mg PO HS RF: 0 sotalol 80 mg Tablet 40 mg PO DAILY RF: 0 ciprofloxacin HCl 500 mg tablet 500 mg PO BID Qty: 30 RF: 0 metronidazole 500 mg tablet 500 mg PO TID Qty: 40 RF: 0 Follow Up Plan Follow up with: Jarocho Ricardo MD [Primary Care Provider] - Patient Disposition: Home, Self-Care Rehab Potential: Good I certify that the patient requires SNF services: No Overall status at discharge: patient is back to baseline Discharge Orders: Discharge Order (Routine); Ordered 08/26/21 Ordered By: Robert PENA VTE Deep Vein Thrombosis/Pulmonary Embolism Present on Admission: No
[2021-08-26] MEDS ORDERED: MAGNESIUM SULFATE 8.12 MEQ in DEXTROSE 5% IN WATER 50 ML IV ONE (13:30)
--- NOTE | 2021-08-28 09:02 | Surgical Pathology Report ---
Histology Microscopic Diagnosis Specimen A- SOFT TISSUE, ABDOMINAL MASS, NEEDLE CORE BIOPSY: --- INVASIVE MODERATELY DIFFERENTIATED ADENOCARCINOMA WITH MUCINOUS FEATURES, MORPHOLOGICALLY SIMILAR TO PATIENT'S KNOWN COLON PRIMARY; SEE COMMENT. (DMT) Clinical History Abdominal mass. Microscopic Description: The patient's history of a moderately differentiated adenocarcinoma with mucinous features ([id number]; 04/17/2021) involving the cecum and multiple pericolonic lymph nodes is noted. The submitted needle core biopsies are involved by a moderately differentiated mucinous adenocarcinoma that is morphologically similar to the patient's known colon adenocarcinoma. Whether this focus of tumor represents a metastasis or direct extension from the primary tumor into adjacent soft tissue requires clinical and radiographic correlation. Gross Description Received part in saline, part in formalin, are four fragments and cores of vásquez-quinn tissue ranging in size from 0.1 to 0.9 cm in length and less than 0.1 cm in diameter. The portion received in saline consists of four fragments ranging in size from less than 0.1 to 0.1 cm. Totally submitted - two cassettes. (KGW:sln) Electronically Signed Jose Dhaliwal MD, FCAP Electronically Signed 08/28/2021 09:01
== END 2021-08-26 15:30 | disposition home or self-care (01) ==
LOC: MEDSUR 15:04 → ED 15:04 → MEDSUR 08-25 00:05
PROVIDERS: ADMIT Internal Medicine; ATTEND Internal Medicine